=== PATIENT | female | born 1960 | race Caucasian/White ===

== ENCOUNTER 2016-04-22 16:52 | Emergency (ER) | payer OTHER ==
[~2016-04-22] VITALS: Ht 157.5 cm; Wt 66.0 kg
[~2016-04-22 16:52] MED LIST: CALC-358 PO; ESCI1TAB10 PO; LEVO-371 PO; METO50TA16 PO; PEDICHW44 PO; POLY335025 PO; SENN-61 PO
[2016-04-22 16:54] VITALS: TEMP 36.8; Ht 157.5 cm; Wt 66.0 kg
[2016-04-22] MEDS ORDERED: METOCLOPRAMIDE HCL INJ 5 MG/ML 2 ML VIAL IV STA (17:06)
[2016-04-22] MEDS ORDERED: HYDROmorphone INJ 1 MG/ML SYR IV STA ×2 (17:06→20:25)
[2016-04-22] MEDS ORDERED: SODIUM CHLORIDE 0.9% 1000ML 1,000 ML IV STA (17:06)
--- NOTE | 2016-04-22 17:18 | EMERGENCY ROOM VISIT NOTE ---
History Report prepared by Venkat: Umer Oh Under the Supervision of: Dr. Kai Toussaint M.D. First contact with patient: 17:01 Chief Complaint: ABDOMINAL PAIN Stated Complaint: SEVERE ABDOMINAL PAIN, NAUSEA History of Present Illness The patient is a 55 year old female who presents to the Emergency Room with complaints of diffuse and worsening abdominal pain that began shortly prior to arrival. The patient states that she first noticed her pain when she was riding in the car today. She is also complaining of nausea and increased belching. She has not eaten anything today, but did have a normal bowel movement prior to arrival. 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 A total of 10 systems reviewed and were otherwise negative. Past Medical & Surgical Medical Problems: (1) Afib (2) Chest pain (3) Depression (4) DM2 (diabetes mellitus, type 2) (5) HTN (hypertension) (6) Hypercholesterolemia (7) ELOISE on CPAP (8) SBO (small bowel obstruction) (9) Statin intolerance Surgical Problems: (1) H/O esophagogastroduodenoscopy (2) H/O gastric bypass (3) H/O tubal ligation (4) Previous section (5) S/P colonoscopy (6) S/P hernia repair Family History Cancer FH: hepatitis FATHER FH: hyperlipidemia BROTHER FH: myocardial infarction FATHER, Onset:38 FHx: heart disease FATHER GRANDFATHER GRANDMOTHER Gallbladder disease Heart disease Hypertension Kidney disease Social History Smoking Status: Never Smoker Alcohol Use: none Drug Use: none Marital Status: Housing Status: lives with family Occupation Status: employed Current/Historical Medications Scheduled Calcium Citrate-Vitamin D (Calcium Citrate+ D), 400 MG PO BID Escitalopram Oxalate (Lexapro), 20 MG PO DAILY Levocetirizine Dihydrochloride (Xyzal), 5 MG PO QPM Metoprolol Tartrate (Lopressor) (Lopressor), 25 MG PO BID Pediatric Multiple Vitamins W/ (Flintstones Plus Iron), 1 TAB PO BID Scheduled PRN Polyethylene Glycol 3350 (Miralax), 17 GM PO DAILY PRN for Constipation Senna (Senokot), 8.6 MG PO DAILY PRN for Constipation Allergies Coded Allergies: Atorvastatin (Verified Allergy, Mild, 01/09/16) Dust (Verified Allergy, Unknown, SHORTNESS OF BREATH, 01/09/16) POLLEN (Verified Allergy, Unknown, SHORTNESS OF BREATH, 01/09/16) Pravastatin (Verified Allergy, Unknown, FEVER, 01/09/16) Physical Exam Vital Signs Date Time Temp Pulse Resp B/P Pulse Ox O2 Delivery O2 Flow Rate FiO2 04/22/16 22:23 74 14 125/81 99 Room Air 04/22/16 22:00 119/68 04/22/16 21:31 115/63 04/22/16 21:12 73 22 92 04/22/16 21:07 78 15 95 04/22/16 21:00 151/87 04/22/16 20:07 75 24 98 04/22/16 20:01 120/65 04/22/16 19:37 69 17 98 04/22/16 19:36 66 15 133/71 99 Room Air 04/22/16 18:44 64 20 129/71 100 Room Air 04/22/16 17:25 73 22 136/76 98 Room Air 04/22/16 16:54 36.8 72 18 125/81 100 Room Air Physical Exam GENERAL: Patient is a healthy-appearing well-nourished HEAD: Normocephalic atraumatic EYES: Ocular movements intact pupils equal and react to light OROPHARYNX mucous membranes are moist no exudates present no erythema or edema present NECK: Supple no nuchal rigidity CHEST: Good equal expansion LUNGS: Clear and equal to auscultation CARDIAC: Normal S1 and S2 ABDOMEN: Diffuse tenderness across abdomen no guarding BACK: No CVA tenderness EXTREMITIES: No pain upon palpation normal muscle strength in all groups no clubbing cyanosis or edema NEURO: Patient is following commands is answering questions appropriately. Alert and oriented x3 Cranial Nerves 2-12 grossly intact Medical Decision & Procedures ER Provider Diagnostic Interpretation: CT SCAN OF THE ABDOMEN AND PELVIS WITH IV CONTRAST CLINICAL HISTORY: Generalized abdominal pain. COMPARISON STUDY: Abdominal CT dated 01/01/2016. TECHNIQUE: Following the IV administration of 115 cc of Optiray 320, CT scan of the abdomen and pelvis is performed from the lung bases to the proximal femora. Images are reviewed in the axial, sagittal, and coronal planes. IV contrast was administered without complication. Automated dose control exposure was utilized. CT DOSE: 432.82 mGy.cm FINDINGS: Lung bases: The heart is normal in size and without pericardial effusion. There is elevation of the right hemidiaphragm which is new from previous. There is a small right pleural effusion with right basilar airspace opacities. A 10 mm nodule at the left lung base on image #93 Liver: The contrast-enhanced liver is enlarged and the surface contour is smooth. There is no intrahepatic biliary ductal dilatation. The hepatic veins and portal veins are patent. The liver is infiltrated by too numerous to count cysts. The largest measures over 7 cm in length. Large right-sided cysts seen previously and are identified suggesting interval cyst drainage or resection. Gallbladder: Not well visualized. Spleen: Normal in size and attenuation. Pancreas: Unremarkable. Adrenal glands: Unremarkable. Kidneys: The contrast enhanced kidneys demonstrate cortical atrophy and are without hydronephrosis. The kidneys enhance symmetrically. The kidneys are infiltrated by too numerous to count small cysts measuring up to 1.5 cm. Additional subcentimeter cortical hypodensities also likely represent cysts but are too small for definitive characterization. Abdominal vasculature: The abdominal aorta is normal in course and caliber noting mild atherosclerotic calcification. Stomach and bowel: There is a small hiatal hernia. There are postoperative changes consistent with a Patti-en-Y gastric bypass surgery. The distal small bowel loops are distended and fecalized, measuring up to 4 cm in diameter. There is distention of the excluded stomach and the pancreaticobiliary limb. This is distended to the distal anastomosis. There is also distention of the distal small bowel loops in the right lower quadrant. These measure up to 3.7 cm in diameter. A transition point is identified in the right upper quadrant posterior to the liver on axial image #86. A second transition point is suggested on image #107. Additionally, there is tethering the mesenteric vessels in this region, and the appearance is highly concerning for a closed loop type obstruction, possible secondary to an internal hernia. Interloop fluid is noted. The distal small bowel loops are decompressed. No focally thick walled bowel loops are identified. There is no pneumatosis intestinalis or portal venous gas. There is colonic fecal retention. There is mild sigmoid diverticulosis without CT evidence of acute diverticulitis. The appendix is well-visualized and normal. Peritoneum: There is no intraperitoneal free air or abdominal ascites. A midline surgical scar is noted. Lymphadenopathy: None. Pelvic viscera: The bladder, uterus, and adnexa are normal as visualized. Skeletal structures: The skeletal structures are osteopenic. No lytic or blastic lesions are seen. IMPRESSION: 1. Again seen are postoperative changes consistent with a Patti-en-Y gastric bypass surgery. 2. Large right hepatic cysts identified on 01/09/2016 are no longer seen an the appearance suggests interval right hepatic lobe resection or possibly cyst drainage. Additionally, the gallbladder is not well visualized. Correlate with the surgical history for evidence of interval cholecystectomy. 3. Findings are consistent with a high-grade small bowel obstruction. There are 2 transition points identified involving small bowel loops posterior to the right lobe of the liver and just below the diaphragm at the site of presumed surgery. An internal hernia with a closed loop type obstruction is suspected. Trace interloop fluid is noted. Surgical consultation is advised. 4. No intraperitoneal free air or abdominal ascites is seen. There is no pneumatosis intestinalis or portal venous gas. No focally thick walled bowel loops are identified. 5. There is also distention of the excluded stomach and the pancreaticobiliary limb. These are distended to the level of the distal anastomosis, and this is likely secondary to the above-mentioned obstruction which is located below the distal anastomosis. 6. There is a small right pleural effusion with right lower lobe airspace opacities. This could represent atelectasis and/or an infectious/inflammatory pneumonitis. Clinical correlation will be required. 7. Numerous hepatic and renal cysts are again noted. 8. There is a new 10 mm pulmonary nodule at the left lung base. This was not seen on 01/09/2016 and may be on an inflammatory basis. Attention at follow-up is recommended. 9. Additional findings as above. Electronically signed by: Eduard Tucker M.D. 04/22/2016 8:15 PM Dictated Date/Time: 04/22/2016 7:55 PM SINGLE VIEW CHEST CLINICAL HISTORY: Small bowel obstruction. Enteric tube placement. FINDINGS: An AP, portable, upright chest radiograph is compared to study dated 01/10/2016. Correlation is made with abdominal CT dated 04/22/2016. The examination is degraded by portable technique and patient rotation. The cardiomediastinal silhouette is unremarkable. There is elevation of the right hemidiaphragm with right basilar airspace opacities. A small right pleural effusion is identified. The left lung appears clear. No pneumothorax is seen. The bony thorax is grossly intact. An enteric tube projects below the diaphragm. The tip is not visualized. Distended small bowel loops are present below the right hemidiaphragm. IMPRESSION: 1. An enteric tube has been placed. The tip projects below the diaphragm. 2. There is elevation of the right hemidiaphragm with right basilar airspace opacities and a small right pleural effusion. 3. Distended gas-filled loops of small bowel are seen below the right hemidiaphragm consistent with the patient's known small bowel obstruction. Electronically signed by: Eduard Tucker M.D. 04/22/2016 8:50 PM Dictated Date/Time: 04/22/2016 8:48 PM Laboratory Results 04/22/16 17:15 Red Blood Count 4.45, Mean Corpuscular Volume 91.9, Mean Corpuscular Hemoglobin 30.3, Mean Corpuscular Hemoglobin Concent 33.0, Mean Platelet Volume 11.2, Neutrophils (%) (Auto) 69.7, Lymphocytes (%) (Auto) 23.3, Monocytes (%) (Auto) 5.2, Eosinophils (%) (Auto) 1.4, Basophils (%) (Auto) 0.1, Neutrophils # (Auto) 4.95, Lymphocytes # (Auto) 1.66, Monocytes # (Auto) 0.37, Eosinophils # (Auto) 0.10, Basophils # (Auto) 0.01 04/22/16 17:15 Test 04/22/16 17:15 04/22/16 17:30 White Blood Count 7.11 K/uL (4.8-10.8) Red Blood Count 4.45 M/uL (4.2-5.4) Hemoglobin 13.5 g/dL (12.0-16.0) Hematocrit 40.9 % (37-47) Mean Corpuscular Volume 91.9 fL (80-100) Mean Corpuscular Hemoglobin 30.3 pg (25-34) Mean Corpuscular Hemoglobin Concent 33.0 g/dl (32-36) Platelet Count 259 K/uL (130-400) Mean Platelet Volume 11.2 fL (7.4-10.4) Neutrophils (%) (Auto) 69.7 % Lymphocytes (%) (Auto) 23.3 % Monocytes (%) (Auto) 5.2 % Eosinophils (%) (Auto) 1.4 % Basophils (%) (Auto) 0.1 % Neutrophils # (Auto) 4.95 K/uL (1.4-6.5) Lymphocytes # (Auto) 1.66 K/uL (1.2-3.4) Monocytes # (Auto) 0.37 K/uL (0.11-0.59) Eosinophils # (Auto) 0.10 K/uL (0-0.5) Basophils # (Auto) 0.01 K/uL (0-0.2) RDW Standard Deviation 45.8 fL (36.4-46.3) RDW Coefficient of Variation 13.6 % (11.5-14.5) Immature Granulocyte % (Auto) 0.3 % Immature Granulocyte # (Auto) 0.02 K/uL (0.00-0.02) Urine Color YELLOW Urine Appearance CLOUDY (CLEAR) Urine pH 5.0 (4.5-7.5) Urine Specific [place] 1.019 (1.000-1.030) Urine Protein NEG (NEG) Urine Glucose (UA) NEG (NEG) Urine Ketones NEG (NEG) Urine Occult Blood NEG (NEG) Urine Nitrite NEG (NEG) Urine Bilirubin NEG (NEG) Urine Urobilinogen NEG (NEG) Urine Leukocyte Esterase NEG (NEG) Urine WBC (Auto) 1-5 /hpf (0-5) Urine RBC (Auto) 0-4 /hpf (0-4) Urine Hyaline Casts (Auto) 1-5 /lpf (0-5) Urine Epithelial Cells (Auto) >30 /lpf (0-5) Urine Bacteria (Auto) NEG (NEG) Anion Gap 13.0 mmol/L (3-11) Est Creatinine Clear Calc Drug Dose 75.3 ml/min Estimated GFR () 102.2 Estimated GFR (Non- 88.2 BUN/Creatinine Ratio 14.9 (10-20) Calcium Level 9.7 mg/dl (8.5-10.1) Total Bilirubin 0.5 mg/dl (0.2-1) Direct Bilirubin 0.1 mg/dl (0-0.2) Aspartate Amino Transf (AST/SGOT) 41 U/L (15-37) Alanine Aminotransferase (ALT/SGPT) 67 U/L (12-78) Alkaline Phosphatase 140 U/L (45-117) Total Protein 8.0 gm/dl (6.4-8.2) Albumin 4.3 gm/dl (3.4-5.0) Lipase 387 U/L (73-393) Prothrombin Time 11.1 SECONDS (9.0-12.0) Prothromb Time International Ratio 1.0 (0.9-1.1) Labs reviewed by ED physician. Medications Administered Medications (Trade) Dose Ordered Sig/Carin Route Start Time Stop Time Status Last Admin Dose Admin Sodium Chloride (Nss 1000ml) 1,000 ml @ 999 mls/hr Q1H1M STAT IV 04/22/16 17:06 04/22/16 18:06 DC 04/22/16 17:21 999 MLS/HR Hydromorphone HCl (Dilaudid Inj) 1 mg NOW STAT IV 04/22/16 17:06 04/22/16 17:07 DC 04/22/16 17:22 1 MG Metoclopramide HCl (Reglan Inj) 10 mg NOW STAT IV 04/22/16 17:06 04/22/16 17:07 DC 04/22/16 17:21 10 MG Ondansetron HCl (Zofran Inj) 4 mg NOW STAT IV 04/22/16 18:45 04/22/16 18:46 DC 04/22/16 18:53 4 MG Hydromorphone HCl 1 mg 1 mg NOW STAT IV 04/22/16 20:25 04/22/16 20:27 DC 04/22/16 21:00 1 MG Promethazine HCl/ Sodium Chloride (Phenergan Inj/ Nss 50ml) 51 ml @ 204 mls/hr NOW STAT IV 04/22/16 20:25 04/22/16 20:39 DC 04/22/16 20:59 204 MLS/HR Hydromorphone HCl (Dilaudid Inj) 0.5 mg NOW PRN IV 04/22/16 21:00 04/22/16 23:40 DC 04/22/16 22:57 0.5 MG ED Course 1702: Past medical records reviewed. The patient was evaluated in room C11. A complete history and physical examination was performed. 1706: Ordered Reglan 10 mg IV, Dilaudid 1 mg IV, Sodium Chloride 1000 mL @ 999 mL/hr IV. 1735: Upon reexamination the patient is resting comfortably. I discussed results and treatment plan with the patient. She verbalizes agreement and understanding. The patient is ready for discharge. Medical Decision Differential diagnosis: Etiologies such as appendicitis, diverticulitis, PUD, biliary pathology, UTI, pancreatitis, obstruction, mesenteric ischemia, aortic pathology, infections, inflammatory bowel disease, renal colic, as well as others were entertained. This is a 55-year-old female that presents emergency Department 24 hours of abdominal pain and bloating. The patient has a history of gastric bypass for this reason I felt a CAT scan was warranted. The CAT scan is concerning for high-grade small bowel obstruction. For this reason an NG tube was placed. An IV was established, the patient given normal saline bolus, Dilaudid, Reglan. 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 I did discuss the case with the surgeon on-call here at [facility] who asked that the patient be transferred. Patient was in agreement with the treatment plan. Impression Primary Impression: Acute gastroenteritis Critical Care I have personally spent greater than 90 minutes of critical care time in the direct management of this patient. This includes bedside care, interpretation of diagnostic studies, and testing, discussion with consultants, patient, and family members, and other required patient management activities. This 90 minutes is in excess of all separately billable procedures. Scribe Attestation The scribe's documentation has been prepared under my direction and personally reviewed by me in its entirety. I confirm that the note above accurately reflects all work, treatment, procedures, and medical decision making performed by me. Departure Information Dispostion Home / Self-Care Referrals Marilynn Taylor D.O. (PCP) Patient Instructions My [facility]
[2016-04-22 17:25] LABS: URINE APPEARANCE CLOUDY (CLEAR); URINE BILIRUBIN NEG (NEG); URINE COLOR YELLOW; URINE EPITHELIAL CELL AUTO >30 /lpf (0-5); URINE NITRITE NEG (NEG); URINE SPECIFIC GRAVITY 1.019 (1.000-1.030); UROBILINOGEN NEG (NEG)
[2016-04-22 17:26] LABS: MANUAL MICROSCOPIC REQUIRED? NO; REVIEW REQ? NO
[2016-04-22 17:27] LABS: BASO % 0.1 %; BASO ABS # 0.01 K/uL (0-0.2); COMPLETE YES; EOS % 1.4 %; HEMATOCRIT 40.9 % (37-47); IG% 0.3 %; LYMPH % 23.3 %; LYMPH ABS # 1.66 K/uL (1.2-3.4); MEAN CELL VOLUME 91.9 fL (80-100); MEAN CORPUSCULAR HEMOGLOBIN 30.3 pg (25-34); MEAN PLATELET VOLUME 11.2 fL (7.4-10.4); MONO % 5.2 %; NEUT % 69.7 %; PLATELET COUNT 259 K/uL (130-400); RED BLOOD COUNT 4.45 M/uL (4.2-5.4); WHITE BLOOD COUNT 7.11 K/uL (4.8-10.8)
[2016-04-22 17:45] LABS: BUN/CREATININE RATIO 14.9 (10-20); CALCIUM 9.7 mg/dl (8.5-10.1); CREATININE 0.77 mg/dl (0.60-1.20); POTASSIUM 3.7 mmol/L (3.5-5.1)
[2016-04-22] MEDS ORDERED: ONDANSETRON INJ 2 MG/ML 2 ML VIAL IV STA (18:45)
[2016-04-22] MEDS ORDERED: OPTIRAY 320 IV PRN (19:30)
--- NOTE | 2016-04-22 20:17 | DIAGNOSTIC IMAGING REPORT ---
CT SCAN OF THE ABDOMEN AND PELVIS WITH IV CONTRAST CLINICAL HISTORY: Generalized abdominal pain. COMPARISON STUDY: Abdominal CT dated 01/01/2016. TECHNIQUE: Following the IV administration of 115 cc of Optiray 320, CT scan of the abdomen and pelvis is performed from the lung bases to the proximal femora. Images are reviewed in the axial, sagittal, and coronal planes. IV contrast was administered without complication. Automated dose control exposure was utilized. CT DOSE: 432.82 mGy.cm FINDINGS: Lung bases: The heart is normal in size and without pericardial effusion. There is elevation of the right hemidiaphragm which is new from previous. There is a small right pleural effusion with right basilar airspace opacities. A 10 mm nodule at the left lung base on image #93 Liver: The contrast-enhanced liver is enlarged and the surface contour is smooth. There is no intrahepatic biliary ductal dilatation. The hepatic veins and portal veins are patent. The liver is infiltrated by too numerous to count cysts. The largest measures over 7 cm in length. Large right-sided cysts seen previously and are identified suggesting interval cyst drainage or resection. Gallbladder: Not well visualized. Spleen: Normal in size and attenuation. Pancreas: Unremarkable. Adrenal glands: Unremarkable. Kidneys: The contrast enhanced kidneys demonstrate cortical atrophy and are without hydronephrosis. The kidneys enhance symmetrically. The kidneys are infiltrated by too numerous to count small cysts measuring up to 1.5 cm. Additional subcentimeter cortical hypodensities also likely represent cysts but are too small for definitive characterization. Abdominal vasculature: The abdominal aorta is normal in course and caliber noting mild atherosclerotic calcification. Stomach and bowel: There is a small hiatal hernia. There are postoperative changes consistent with a Patti-en-Y gastric bypass surgery. The distal small bowel loops are distended and fecalized, measuring up to 4 cm in diameter. There is distention of the excluded stomach and the pancreaticobiliary limb. This is distended to the distal anastomosis. There is also distention of the distal small bowel loops in the right lower quadrant. These measure up to 3.7 cm in diameter. A transition point is identified in the right upper quadrant posterior to the liver on axial image #86. A second transition point is suggested on image #107. Additionally, there is tethering the mesenteric vessels in this region, and the appearance is highly concerning for a closed loop type obstruction, possible secondary to an internal hernia. Interloop fluid is noted. The distal small bowel loops are decompressed. No focally thick walled bowel loops are identified. There is no pneumatosis intestinalis or portal venous gas. There is colonic fecal retention. There is mild sigmoid diverticulosis without CT evidence of acute diverticulitis. The appendix is well-visualized and normal. Peritoneum: There is no intraperitoneal free air or abdominal ascites. A midline surgical scar is noted. Lymphadenopathy: None. Pelvic viscera: The bladder, uterus, and adnexa are normal as visualized. Skeletal structures: The skeletal structures are osteopenic. No lytic or blastic lesions are seen. IMPRESSION: 1. Again seen are postoperative changes consistent with a Patti-en-Y gastric bypass surgery. 2. Large right hepatic cysts identified on 01/09/2016 are no longer seen an the appearance suggests interval right hepatic lobe resection or possibly cyst drainage. Additionally, the gallbladder is not well visualized. Correlate with the surgical history for evidence of interval cholecystectomy. 3. Findings are consistent with a high-grade small bowel obstruction. There are 2 transition points identified involving small bowel loops posterior to the right lobe of the liver and just below the diaphragm at the site of presumed surgery. An internal hernia with a closed loop type obstruction is suspected. Trace interloop fluid is noted. Surgical consultation is advised. 4. No intraperitoneal free air or abdominal ascites is seen. There is no pneumatosis intestinalis or portal venous gas. No focally thick walled bowel loops are identified. 5. There is also distention of the excluded stomach and the pancreaticobiliary limb. These are distended to the level of the distal anastomosis, and this is likely secondary to the above-mentioned obstruction which is located below the distal anastomosis. 6. There is a small right pleural effusion with right lower lobe airspace opacities. This could represent atelectasis and/or an infectious/inflammatory pneumonitis. Clinical correlation will be required. 7. Numerous hepatic and renal cysts are again noted. 8. There is a new 10 mm pulmonary nodule at the left lung base. This was not seen on 01/09/2016 and may be on an inflammatory basis. Attention at follow-up is recommended. 9. Additional findings as above. Electronically signed by: Eduard Tucker M.D. 04/22/2016 8:15 PM Dictated Date/Time: 04/22/2016 7:55 PM
[2016-04-22] MEDS ORDERED: PROMETHAZINE HCL INJ 25 MG in SODIUM CHLORIDE 0.9% 50ML 50 ML IV STA (20:25)
[2016-04-22 20:38] LABS: PROTHROMBIN TIME (PATIENT) 11.1 SECONDS (9.0-12.0)
--- NOTE | 2016-04-22 20:51 | DIAGNOSTIC IMAGING REPORT ---
SINGLE VIEW CHEST CLINICAL HISTORY: Small bowel obstruction. Enteric tube placement. FINDINGS: An AP, portable, upright chest radiograph is compared to study dated 01/10/2016. Correlation is made with abdominal CT dated 04/22/2016. The examination is degraded by portable technique and patient rotation. The cardiomediastinal silhouette is unremarkable. There is elevation of the right hemidiaphragm with right basilar airspace opacities. A small right pleural effusion is identified. The left lung appears clear. No pneumothorax is seen. The bony thorax is grossly intact. An enteric tube projects below the diaphragm. The tip is not visualized. Distended small bowel loops are present below the right hemidiaphragm. IMPRESSION: 1. An enteric tube has been placed. The tip projects below the diaphragm. 2. There is elevation of the right hemidiaphragm with right basilar airspace opacities and a small right pleural effusion. 3. Distended gas-filled loops of small bowel are seen below the right hemidiaphragm consistent with the patient's known small bowel obstruction. Electronically signed by: Eduard Tucker M.D. 04/22/2016 8:50 PM Dictated Date/Time: 04/22/2016 8:48 PM
[2016-04-22] MEDS ORDERED: HYDROmorphone INJ 0.5 MG/0.5 ML SYR IV PRN (21:00)
[2016-04-22 22:23] VITALS: BP 125/81; PULSE 74; O2SAT 99
== END 2016-04-22 22:30 | disposition home or self-care (01) ==
LOC: C.EDB 16:53 → C.EDC 22:30
DX: K52.9 Noninfective gastroenteritis and colitis, unspecified (principal); I10 Essential (primary) hypertension; G47.33 Obstructive sleep apnea (adult) (pediatric); F32.9 Major depressive disorder, single episode, unspecified; Z98.84 Bariatric surgery status; Z83.49 Family history of other endocrine, nutritional and metabolic diseases; Z82.49 Family history of ischemic heart disease and other diseases of the circulatory system; Z84.1 Family history of disorders of kidney and ureter

== ENCOUNTER 2016-04-30 13:36 | Emergency (ER) | payer OTHER ==
[2016-04-30 13:46] VITALS: TEMP 37.9; Ht 157.5 cm
[2016-04-30] MEDS ORDERED: SODIUM CHLORIDE 0.9% 1000ML 1,000 ML IV STA (15:08)
[2016-04-30] MEDS ORDERED: HYDROmorphone INJ 1 MG/ML SYR IV STA (15:25)
[2016-04-30] MEDS ORDERED: ONDANSETRON INJ 2 MG/ML 2 ML VIAL IV STA (15:25)
--- NOTE | 2016-04-30 15:25 | EMERGENCY ROOM VISIT NOTE ---
History First contact with patient: 14:56 Chief Complaint: ABDOMINAL PAIN Stated Complaint: SEVERE FLANK PAIN,FEVER Nursing Triage Summary: Triage Note: Pt reports "Mom you tell them." pt mother reports that pt had surgery on hiatal hernia obstruction last Saturday. Pt reports right upper abd pain since yesterday. History of Present Illness The patient is a 55 year old female who presents to the Emergency Room via private vehicle with complaints of "severe flank pain/fever". The patient states that she was here not long ago and was diagnosed with small bowel obstruction, and was transferred to [facility]. At that time she did have abdominal surgery, which included resection of bowel as well as cholecystectomy. She states she was also evaluated by a liver transplant surgeon. A feeding tube was placed, and she is to keep this for 2 months. She states she has not been using this and has been tolerating by mouth fluids and food. She states that she was discharged this past Saturday, and was feeling better, had moved her bowels as well as urinated without difficulty. She states that Saturday she woke up and also felt well however throughout the day she developed right upper quadrant abdominal pain. She states that the pain has worsened, and she feels as though she has gained about 20 pounds since her discharge. She states she feels very bloated as well. She called her family doctor today who notes they do not have any recent appointments, and the patient felt that the appropriate to come here as she also developed a temperature of 101.5F this afternoon. She has been taking oxycodone for the pain of which was prescribed to her at [facility]. Her last movement was yesterday around 2 PM, and was liquidy diarrhea. There is associated dyspnea, she states she feels as though she cannot take a deep breath. She denies any chest pain, nausea, vomiting. Review of Systems A complete 10-point Review of Systems was discussed with the patient, with pertinent positives and negatives listed in the History of Present Illness. All remaining Review of Systems questions can be considered negative unless otherwise specified. Past Medical/Surgical History Medical Problems: (1) Afib (2) Chest pain (3) Depression (4) DM2 (diabetes mellitus, type 2) (5) HTN (hypertension) (6) Hypercholesterolemia (7) ELOISE on CPAP (8) SBO (small bowel obstruction) (9) Statin intolerance Surgical Problems: (1) H/O esophagogastroduodenoscopy (2) H/O gastric bypass (3) H/O tubal ligation (4) Previous section (5) S/P colonoscopy (6) S/P hernia repair Family History Cancer FH: hepatitis FATHER FH: hyperlipidemia BROTHER FH: myocardial infarction FATHER, Onset:38 FHx: heart disease FATHER GRANDFATHER GRANDMOTHER Gallbladder disease Heart disease Hypertension Kidney disease Social History Smoking Status: Never Smoker Alcohol Use: none Drug Use: none Marital Status: Housing Status: lives with family Occupation Status: employed Current/Historical Medications Scheduled Calcium Citrate-Vitamin D (Calcium Citrate+ D), 400 MG PO BID Escitalopram Oxalate (Lexapro), 20 MG PO DAILY Levocetirizine Dihydrochloride (Xyzal), 5 MG PO QPM Metoprolol Tartrate (Lopressor) (Lopressor), 25 MG PO BID Pediatric Multiple Vitamins W/ (Flintstones Plus Iron), 1 TAB PO BID Scheduled PRN Acetaminophen (Tylenol), 1,000 MG PO Q6 PRN for Pain Polyethylene Glycol 3350 (Miralax), 17 GM PO DAILY PRN for Constipation Senna (Senokot), 8.6 MG PO DAILY PRN for Constipation Allergies Coded Allergies: Atorvastatin (Verified Allergy, Mild, 01/09/16) Dust (Verified Allergy, Unknown, SHORTNESS OF BREATH, 01/09/16) POLLEN (Verified Allergy, Unknown, SHORTNESS OF BREATH, 01/09/16) Pravastatin (Verified Allergy, Unknown, FEVER, 01/09/16) Physical Exam Vital Signs Date Time Temp Pulse Resp B/P Pulse Ox O2 Delivery O2 Flow Rate FiO2 04/30/16 21:01 81 16 108/63 96 04/30/16 20:00 122 04/30/16 18:24 127 24 113/70 95 Room Air 04/30/16 17:18 120 18 147/83 85 Room Air 04/30/16 17:18 95 Nasal Cannula 3.0 04/30/16 15:38 117 04/30/16 15:36 114 20 127/76 95 Room Air 04/30/16 15:23 96 Room Air 04/30/16 15:22 Room Air 04/30/16 13:46 37.9 118 20 127/83 93 Room Air Physical Exam VITAL SIGNS - Vital signs and nursing notes were reviewed. The patient is febrile at 37.9C, she is normotensive at 127/83, she is tachycardic at a rate of 118 bpm, respiratory rate of 20 and is saturating on room air at 93%. GENERAL -55-year-old female appearing her stated age who is in no acute distress. Communicates well with provider and answers questions appropriately. SKIN - Without rashes. No petechial rashes. There is evidence of healing contusion on the left ventral forearm. HEAD - NC/AT. EYES - Sclera anicteric. Palpebral conjunctiva pink and moist with no injection noted. EARS - No deformities of external structures noted on gross examination bilaterally. NOSE - Midline and without cyanosis. No epistaxis or purulent drainage noted. MOUTH/OROPHARYNX - Without perioral cyanosis. NECK - Neck with FROM. Supple to palpation. Right anterior cervical lymphadenopathy noted. No nuchal rigidity. LUNGS - Chest wall symmetric without accessory muscle use, intercostals retractions, or central cyanosis. Normal vesicular breath sounds CTA B/L. No wheezes, rales, or rhonchi appreciated. CARDIAC - RRR with S1/S2. No murmur, rubs, or gallops appreciated. ABDOMEN - Abdominal contour without pulsations or visible masses. There is a stapled, midline abdominal incision that is healing well with mild erythema at the skin edges. There is no discharge or evidence of fullness cellulitis at this time. BS normoactive all four quadrants. There is a feeding tube in the left upper quadrant. There is exquisite tenderness to the right upper quadrant. No palpable masses, hepatosplenomegaly, or ascites noted. EXTREMITIES - No clubbing or peripheral cyanosis. No pretibial edema present. + 5/5 strength noted in UE/LE bilaterally. NEUROLOGIC - Cranial nerves II through XII grossly intact. Sensory intact to light touch throughout. PSYCH -Pt is very pleasant and interacts well with examiner. Medical Decision & Procedures ER Provider Diagnostic Interpretation: SINGLE VIEW CHEST CLINICAL HISTORY: Dyspnea. Fever. Recent surgery. FINDINGS: An AP, portable, upright chest radiograph is compared to study dated 04/22/2016. The examination is degraded by portable technique and patient rotation. The enteric tube has been removed from previous. The cardiomediastinal silhouette is unremarkable. Chronic elevation of the right hemidiaphragm is similar to previous. There are layering pleural effusions with bibasilar consolidation that have increased in size from 04/22/2016. The upper lungs appear clear. No pneumothorax is seen. The bony thorax is grossly intact.. IMPRESSION: Layering pleural effusions with bibasilar consolidation, right larger than left. This likely represents atelectasis. Clinical correlation will be required. Pleural effusions have significantly increased in size from 04/22/2016. Electronically signed by: Eduard Tucker M.D. 04/30/2016 3:42 PM Dictated Date/Time: 04/30/2016 3:[address] ANGIOGRAM OF THE CHEST CLINICAL HISTORY: Fever, chest and flank pain. Recent bowel resection. COMPARISON STUDY: Chest x-ray dated 04/30/2016 TECHNIQUE: Following the IV administration of 117 mL of Optiray-320, CT angiogram of the thorax was performed from the thoracic inlet to the lung bases utilizing the pulmonary embolus protocol. Images are reviewed in the axial, sagittal, and coronal planes. IV contrast was administered without complication. MIP imaging was performed. CT DOSE: 1046.08 mGy.cm FINDINGS: No pathologically enlarged axillary mediastinal or hilar lymph nodes were visualized. There was no evidence of thoracic aortic dilatation. There were no pulmonary artery filling defects to indicate acute pulmonary embolism. There is a moderate to large right pleural effusion which is likely in part loculated. There is a small left pleural effusion. There are by basilar compressive atelectatic changes. There is a small pericardial effusion. There are in numerable hepatic cysts. Gas in the right upper quadrant, likely represents colonic interposition given the right or CT findings of 04/22/2016 IMPRESSION: 1. No CT evidence of acute pulmonary embolism 2. Moderate to large right pleural effusion and small left pleural effusion 3. Bilateral lower lobe compressive atelectatic changes 4. Innumerable hepatic cysts Electronically signed by: Александр Padilla M.D. 04/30/2016 4:51 PM Dictated Date/Time: 04/30/2016 4:47 PM ABDOMEN AND PELVIS CT WITH IV CONTRAST CT DOSE: HISTORY: Fever Febrile, RUQ abdominal pain, recent surgery TECHNIQUE: Multiaxial CT images of the abdomen and pelvis were performed following the use of intravenous contrast. COMPARISON STUDY: 04/22/2016. Findings. Progression of a right pleural effusion. Right lower lobe as well as left lower lobe atelectatic change. Potential mild infiltrative process left base with a small left effusion. Persistent hepatomegaly. Multiple hepatic cysts. Several cysts in the peripheral right hepatic lobe now containing a component of air. Infiltrative changes peripheral to the liver in the right upper quadrant region now contiguous with the right hepatic lobe cyst. Is now potentially represent multifocal abscesses at the periphery of the right hepatic lobe. Gastrostomy tube has been placed. Interval development of a 7 x 5 cm fluid pocket medially medial to the pancreatic head. Multiple renal cysts unchanged in the prior study. No evidence for hydronephrosis. Nonspecific infiltrative change of the paracolic gutter fat regions bilaterally. Interval placement of an anastomotic line in the right flank. Bowel is been decompressed possibility of several additional collections in the right flank and paracolic gutter region. Interval development of body wall anasarca. IMPRESSION: 1. Difficult scan to interpret.. 2. Interval development of air pockets within several of the patient's hepatic cysts, as well as infiltrative/collection-type change lateral to the liver in the right upper paracolic gutter region. 3. Possibility of multifocal abscesses or collections is considered. 4. Placement of gastrostomy tube with interval surgical decompression of the patient's bowel obstructive change. 5. No current evidence of bowel obstructive change. 6. Interval development of body wall anasarca, as well as a significant right effusion and bilateral basilar atelectatic change. Electronically signed by: Damien Cornejo M.D. 04/30/2016 5:07 PM Dictated Date/Time: 04/30/2016 4:47 PM Laboratory Results 04/30/16 15:15 Red Blood Count 3.33, Mean Corpuscular Volume 89.2, Mean Corpuscular Hemoglobin 30.6, Mean Corpuscular Hemoglobin Concent 34.3, Mean Platelet Volume 10.6, Neutrophils (%) (Auto) 80.2, Lymphocytes (%) (Auto) 6.2, Monocytes (%) (Auto) 6.5, Eosinophils (%) (Auto) 1.0, Basophils (%) (Auto) 0.6, Neutrophils # (Auto) 11.29, Lymphocytes # (Auto) 0.87, Monocytes # (Auto) 0.91, Eosinophils # (Auto) 0.14, Basophils # (Auto) 0.09 04/30/16 15:15 Test 04/30/16 15:15 04/30/16 15:48 04/30/16 16:02 04/30/16 17:20 White Blood Count 14.07 K/uL (4.8-10.8) Red Blood Count 3.33 M/uL (4.2-5.4) Hemoglobin 10.2 g/dL (12.0-16.0) Hematocrit 29.7 % (37-47) Mean Corpuscular Volume 89.2 fL (80-100) Mean Corpuscular Hemoglobin 30.6 pg (25-34) Mean Corpuscular Hemoglobin Concent 34.3 g/dl (32-36) Platelet Count 362 K/uL (130-400) Mean Platelet Volume 10.6 fL (7.4-10.4) Neutrophils (%) (Auto) 80.2 % Lymphocytes (%) (Auto) 6.2 % Monocytes (%) (Auto) 6.5 % Eosinophils (%) (Auto) 1.0 % Basophils (%) (Auto) 0.6 % Neutrophils # (Auto) 11.29 K/uL (1.4-6.5) Lymphocytes # (Auto) 0.87 K/uL (1.2-3.4) Monocytes # (Auto) 0.91 K/uL (0.11-0.59) Eosinophils # (Auto) 0.14 K/uL (0-0.5) Basophils # (Auto) 0.09 K/uL (0-0.2) RDW Standard Deviation 47.0 fL (36.4-46.3) RDW Coefficient of Variation 14.4 % (11.5-14.5) Immature Granulocyte % (Auto) 5.5 % Immature Granulocyte # (Auto) 0.77 K/uL (0.00-0.02) Nucleated RBC Absolute Count (auto) 0.04 K/uL (0-0) Nucleated Red Blood Cells % 0.3 % Toxic Granulation 2+ Anion Gap 11.0 mmol/L (3-11) Estimated GFR () 132.6 Estimated GFR (Non- 114.4 BUN/Creatinine Ratio 17.1 (10-20) Calcium Level 8.3 mg/dl (8.5-10.1) Magnesium Level 2.0 mg/dl (1.8-2.4) Total Bilirubin 0.8 mg/dl (0.2-1) Aspartate Amino Transf (AST/SGOT) 38 U/L (15-37) Alanine Aminotransferase (ALT/SGPT) 54 U/L (12-78) Alkaline Phosphatase 141 U/L (45-117) Total Protein 6.4 gm/dl (6.4-8.2) Albumin 2.2 gm/dl (3.4-5.0) Globulin 4.2 gm/dl (2.5-4.0) Albumin/Globulin Ratio 0.5 (0.9-2) Amylase Level 205 U/L (25-115) Lipase 623 U/L (73-393) Bedside Troponin I 0.000 ng/ml (0-0.045) GI-Xws-S-Type Natriuretic Peptide 245 pg/ml (0-900) Bedside Lactic Acid Venous 0.90 mmol/L (0.90-1.70) Urine Color DK YELLOW Urine Appearance CLEAR (CLEAR) Urine pH 6.0 (4.5-7.5) Urine Specific [place] > 1.045 (1.000-1.030) Urine Protein 1+ (NEG) Urine Glucose (UA) NEG (NEG) Urine Ketones 2+ (NEG) Urine Occult Blood NEG (NEG) Urine Nitrite NEG (NEG) Urine Bilirubin NEG (NEG) Urine Urobilinogen POS (NEG) Urine Leukocyte Esterase NEG (NEG) Urine WBC (Auto) 1-5 /hpf (0-5) Urine RBC (Auto) 0-4 /hpf (0-4) Urine Hyaline Casts (Auto) 5-10 /lpf (0-5) Urine Epithelial Cells (Auto) >30 /lpf (0-5) Urine Bacteria (Auto) NEG (NEG) Urine Renal Epithelial Cells /lpf (0-5) Medications Administered Medications (Trade) Dose Ordered Sig/Carin Route Start Time Stop Time Status Last Admin Dose Admin Sodium Chloride (Nss 1000ml) 1,000 ml @ 999 mls/hr Q1H1M STAT IV 04/30/16 15:08 04/30/16 16:08 DC 04/30/16 15:35 999 MLS/HR Hydromorphone HCl (Dilaudid Inj) 1 mg NOW STAT IV 04/30/16 15:25 04/30/16 15:27 DC 04/30/16 15:47 1 MG Ondansetron HCl (Zofran Inj) 4 mg NOW STAT IV 04/30/16 15:25 04/30/16 15:27 DC 04/30/16 15:48 4 MG Piperacillin Sod/ Tazobactam Sod (Zosyn Iv) 4.5 gm NOW STAT IV 04/30/16 16:10 04/30/16 16:12 DC 04/30/16 17:10 4.5 GM Levofloxacin (Levaquin / D5W) 750 mg NOW STAT IV 04/30/16 16:10 04/30/16 16:12 DC 04/30/16 17:10 750 MG Hydromorphone HCl (Dilaudid Inj) 0.5 mg NOW STAT IV 04/30/16 17:40 04/30/16 17:41 DC 04/30/16 17:49 0.5 MG Medical Decision Patient was seen and evaluated as above. Previous visits were extensively reviewed. The patient presents status post recent abdominal surgery, tachycardia, dyspnea and subjective as well as objective findings of fever. There is initial concern for PE, atelectasis, pneumonia as well as intra- abdominal infection with potential for sepsis. IV access was initiated, and the above labs were ordered. Chest 1 view was initiated, and compared to previous with worsening of the consolidation as well as atelectasis. There is also concern for effusion and pneumonia. Based upon this finding, as well as elevated white count, fever and recent surgery I did elect to treat for potential sepsis, as well as nosocomial pneumonia. She was given 4.5 g of Zosyn as well as 750 mg of Levaquin IV. She was hydrated with 1 L of normal saline. As the patient was febrile I did want to hydrate her, however did want to use caution because she has worsening pleural effusions. For pain she was given 1 mg of Dilaudid IV, 4 mg of Zofran for any potential nausea. Clinically she does look well, however upon presentation the O2 saturation was 93%, and upon reassessment 1 hour after my initial evaluation, she desatted to 86% on room air. Oxygen was initiated at that point. She did appear to be more comfortable, and was in less pain. I informed her upon the severity of the situation, and the concern for sepsis. Her point of care lactic was 0.9, however blood cultures were ordered 2. CT scans were ordered of the chest, and abdomen one to evaluate for pulmonary emboli based upon the patient's tachycardia, dyspnea and risk factor for this as well as the abdomen and pelvis secondary to her degree of pain. Chest x-ray indicates worsening effusions. The CT of the chest was negative for pulmonary emboli. The scan of the abdomen and pelvis did reveal a potential infiltrate or process with the left base, therefore the Zosyn and Levaquin were continued for potential pneumonia as well as intra-abdominal process. There is also note of now hepatic cysts with air, infiltrative changes on the liver periphery concerning for multifocal abscesses within the right hepatic lobe. There was also an interval development of a 7 5cm fluid collection medial to the pancreatic head. This is concerning for infection. There was also nonspecific infiltrative changes to the paracolic gutter fat regions bilaterally. There was also additional collections in the right flank and paracolic gutter region and body wall anasarca. These were all concerning for severe an infectious/inflammatory processes. The case was extensively discussed with my attending physician, Dr. Angelo. I then discussed the case with [facility], the surgeon instructional interventionist for the one who completed the previous recent surgery. At 5:50 PM I spoke with Dr. Pérez. After a thorough discussion, it was recommended the patient be sent back to [facility] for further evaluation and management. He did request the imaging studies be sent with the patient. I then prepared the patient for transport. She was given orders for morphine and Zofran in route, as well as to keep vein open. I elected to not provide additional fluids at this time given the amount of pleural effusion and fluid overload. For medications: She was given 1 L here wide open, as well as 4.5 g of Zosyn and 750 mg of Levaquin. She was given 1 mg of Dilaudid followed by 0.5 mg of Dilaudid total. She was also given 4 mg of Zofran. At this time I believe the patient is stable for transport, and will benefit from transport to a facility which is able to address her concern at this time. The patient was extensively informed upon lab work and imaging studies. She did have a leukocytosis at 14.7, as well as anemia with hemoglobin of 10.2. Potassium was low at 3.3, creatinine 1.45, calcium low at 8.3 with AST elevated at 38 and alkaline phosphatase 141. Point care troponin was 0. BNP was 245. Total bilirubin was normal at 0.8. Albumin and globulin were both abnormal with albumin at 2.2 and globulin at 4.2. Amylase and lipase were both elevated at 205 and 623 respectively. Patient's urine did reveal 2+ ketones, positive urobilinogen 5-10 hyaline casts and greater than 30 epithelial cells. No evidence of UTI this time. EKG revealed sinus tachycardia, rate of 112 bpm. There was no acute ectopy or ischemic change noted this time. Compared to april 22 ekg: Vent. rate has increased BY 40 BPM Questionable change in initial forces of Anterior leads Nonspecific T wave abnormality, worse in Inferior leads In the evaluation and treatment of this patient the following differential diagnoses were entertained: Abscess, sepsis, pulmonary emboli, pneumonia, pleural effusion, among others. Impression Primary Impression: Postoperative fever Additional Impressions: Pleural effusion Abdominal fluid collection Anasarca Leukocytosis Departure Information Dispostion Transfer Acute Care Facility Condition FAIR Referrals Marilynn Taylor D.O. (PCP) Patient Instructions My [facility] Problem Qualifiers
[2016-04-30 15:36] LABS: HEMATOCRIT 29.7 % (37-47); MEAN CELL VOLUME 89.2 fL (80-100); MEAN CORPUSCULAR HEMOGLOBIN 30.6 pg (25-34); MEAN CORPUSCULAR HGB CONC 34.3 g/dl (32-36); MEAN PLATELET VOLUME 10.6 fL (7.4-10.4); PLATELET COUNT 362 K/uL (130-400); RED BLOOD COUNT 3.33 M/uL (4.2-5.4); WHITE BLOOD COUNT 14.07 K/uL (4.8-10.8)
[2016-04-30] MEDS ORDERED: ACET-1256 PO (15:40)
--- NOTE | 2016-04-30 15:44 | DIAGNOSTIC IMAGING REPORT ---
SINGLE VIEW CHEST CLINICAL HISTORY: Dyspnea. Fever. Recent surgery. FINDINGS: An AP, portable, upright chest radiograph is compared to study dated 04/22/2016. The examination is degraded by portable technique and patient rotation. The enteric tube has been removed from previous. The cardiomediastinal silhouette is unremarkable. Chronic elevation of the right hemidiaphragm is similar to previous. There are layering pleural effusions with bibasilar consolidation that have increased in size from 04/22/2016. The upper lungs appear clear. No pneumothorax is seen. The bony thorax is grossly intact.. IMPRESSION: Layering pleural effusions with bibasilar consolidation, right larger than left. This likely represents atelectasis. Clinical correlation will be required. Pleural effusions have significantly increased in size from 04/22/2016. Electronically signed by: Eduard Tucker M.D. 04/30/2016 3:42 PM Dictated Date/Time: 04/30/2016 3:40 PM
[2016-04-30 15:55] LABS: ALT/SGPT 54 U/L (12-78); BLOOD UREA NITROGEN 8 mg/dl (7-18); BUN/CREATININE RATIO 17.1 (10-20); CALCIUM 8.3 mg/dl (8.5-10.1); CARBON DIOXIDE 28 mmol/L (21-32); CHLORIDE 99 mmol/L (98-107); CREATININE 0.45 mg/dl (0.60-1.20); GLUCOSE 110 mg/dl (70-99); POTASSIUM 3.3 mmol/L (3.5-5.1); SODIUM 138 mmol/L (136-145)
[2016-04-30 15:57] LABS: BASO % 0.6 %; BASO ABS # 0.09 K/uL (0-0.2); COMPLETE YES; IG% 5.5 %; LYMPH % 6.2 %; LYMPH ABS # 0.87 K/uL (1.2-3.4); MONO % 6.5 %; NEUT % 80.2 %; TOXIC GRANULATION 2+
[2016-04-30 15:58] LABS: ALB/GLOB RATIO 0.5 (0.9-2); ALKALINE PHOSPHATASE 141 U/L (45-117); AST/SGOT 38 U/L (15-37)
[2016-04-30] MEDS ORDERED: LEVAQUIN 750MG / 150ML D5W IV STA (16:10)
[2016-04-30] MEDS ORDERED: PIPERACILLIN/TAZOBACTAM 4.5 GM/100ML D5W IV STA (16:10)
--- NOTE | 2016-04-30 16:53 | DIAGNOSTIC IMAGING REPORT ---
CT ANGIOGRAM OF THE CHEST CLINICAL HISTORY: Fever, chest and flank pain. Recent bowel resection. COMPARISON STUDY: Chest x-ray dated 04/30/2016 TECHNIQUE: Following the IV administration of 117 mL of Optiray-320, CT angiogram of the thorax was performed from the thoracic inlet to the lung bases utilizing the pulmonary embolus protocol. Images are reviewed in the axial, sagittal, and coronal planes. IV contrast was administered without complication. MIP imaging was performed. CT DOSE: 1046.08 mGy.cm FINDINGS: No pathologically enlarged axillary mediastinal or hilar lymph nodes were visualized. There was no evidence of thoracic aortic dilatation. There were no pulmonary artery filling defects to indicate acute pulmonary embolism. There is a moderate to large right pleural effusion which is likely in part loculated. There is a small left pleural effusion. There are by basilar compressive atelectatic changes. There is a small pericardial effusion. There are in numerable hepatic cysts. Gas in the right upper quadrant, likely represents colonic interposition given the right or CT findings of 04/22/2016 IMPRESSION: 1. No CT evidence of acute pulmonary embolism 2. Moderate to large right pleural effusion and small left pleural effusion 3. Bilateral lower lobe compressive atelectatic changes 4. Innumerable hepatic cysts Electronically signed by: Александр Padilla M.D. 04/30/2016 4:51 PM Dictated Date/Time: 04/30/2016 4:47 PM
[2016-04-30] MEDS ORDERED: OPTIRAY 320 IV PRN (17:00)
--- NOTE | 2016-04-30 17:09 | DIAGNOSTIC IMAGING REPORT ---
ABDOMEN AND PELVIS CT WITH IV CONTRAST CT DOSE: HISTORY: Fever Febrile, RUQ abdominal pain, recent surgery TECHNIQUE: Multiaxial CT images of the abdomen and pelvis were performed following the use of intravenous contrast. COMPARISON STUDY: 04/22/2016. Findings. Progression of a right pleural effusion. Right lower lobe as well as left lower lobe atelectatic change. Potential mild infiltrative process left base with a small left effusion. Persistent hepatomegaly. Multiple hepatic cysts. Several cysts in the peripheral right hepatic lobe now containing a component of air. Infiltrative changes peripheral to the liver in the right upper quadrant region now contiguous with the right hepatic lobe cyst. Is now potentially represent multifocal abscesses at the periphery of the right hepatic lobe. Gastrostomy tube has been placed. Interval development of a 7 x 5 cm fluid pocket medially medial to the pancreatic head. Multiple renal cysts unchanged in the prior study. No evidence for hydronephrosis. Nonspecific infiltrative change of the paracolic gutter fat regions bilaterally. Interval placement of an anastomotic line in the right flank. Bowel is been decompressed possibility of several additional collections in the right flank and paracolic gutter region. Interval development of body wall anasarca. IMPRESSION: 1. Difficult scan to interpret.. 2. Interval development of air pockets within several of the patient's hepatic cysts, as well as infiltrative/collection-type change lateral to the liver in the right upper paracolic gutter region. 3. Possibility of multifocal abscesses or collections is considered. 4. Placement of gastrostomy tube with interval surgical decompression of the patient's bowel obstructive change. 5. No current evidence of bowel obstructive change. 6. Interval development of body wall anasarca, as well as a significant right effusion and bilateral basilar atelectatic change. Electronically signed by: Damien Cornejo M.D. 04/30/2016 5:07 PM Dictated Date/Time: 04/30/2016 4:47 PM
[2016-04-30 17:18] VITALS: O2SAT 95
[2016-04-30 17:38] LABS: AMYLASE 205 U/L (25-115)
[2016-04-30 17:39] LABS: MANUAL MICROSCOPIC REQUIRED? NO; REVIEW REQ? YES; URINE APPEARANCE CLEAR (CLEAR); URINE BILIRUBIN NEG (NEG); URINE COLOR DK YELLOW; URINE EPITHELIAL CELL AUTO >30 /lpf (0-5); URINE NITRITE NEG (NEG); URINE SPECIFIC GRAVITY > 1.045 (1.000-1.030); UROBILINOGEN POS (NEG); ZZUR CULT IF INDIC CLEAN CATCH NO
[2016-04-30] MEDS ORDERED: HYDROmorphone INJ 0.5 MG/0.5 ML SYR IV STA (17:40)
[2016-04-30 21:01] VITALS: BP 108/63; PULSE 81; O2SAT 96
== END 2016-04-30 21:07 | disposition short-term general hospital (02) ==
LOC: C.EDB 13:40 → C.EDC 21:07
DX: R50.82 Postprocedural fever (principal); J90 Pleural effusion, not elsewhere classified; R18.8 Other ascites; D72.829 Elevated white blood cell count, unspecified; Z98.890 Other specified postprocedural states; Z93.1 Gastrostomy status; I48.91 Unspecified atrial fibrillation; E11.9 Type 2 diabetes mellitus without complications; I10 Essential (primary) hypertension; E78.00 Pure hypercholesterolemia, unspecified; G47.33 Obstructive sleep apnea (adult) (pediatric); F32.9 Major depressive disorder, single episode, unspecified; Z98.84 Bariatric surgery status; Z80.9 Family history of malignant neoplasm, unspecified; Z82.49 Family history of ischemic heart disease and other diseases of the circulatory system; Z83.79 Family history of other diseases of the digestive system; Z84.1 Family history of disorders of kidney and ureter; Z79.899 Other long term (current) drug therapy

== ENCOUNTER → 2016-08-10 | Outpatient (CLI) | payer OTHER ==
[~2016-08-10] MED LIST changes: +ACET-1256 PO; +ONDA4TAB10 SL; +OPTIRAY 320 IV PRN
--- NOTE | 2016-08-10 10:51 | DIAGNOSTIC IMAGING REPORT ---
CHEST CT WITH CONTRAST CT DOSE: 211.09 mGy.cm HISTORY: Nodule LEFT LOWER LUNG NODULE TECHNIQUE: Multiaxial CT images of the chest were performed following the intravenous administration of contrast. COMPARISON: 04/30/2016 FINDINGS: Considerable improvement in the appearance of the chest CT. The effusions and lower lobe atelectatic change produces described have essentially resolved. Minimal dependent atelectasis right posterior costophrenic angle is noted. No significant parenchymal nodularity. Several small mediastinal as well as axillary nodes stable to slightly improved prior study. Multiple hepatic cysts considered stable. IMPRESSION: 1. Considerable improvement in the appearance of the chest CT. Chest at this time is currently negative for significant parenchymal pathology. 3. Several small residual nodes unchanged/mildly improved. 4. Multiple hepatic cysts previously described. Electronically signed by: Damien Cornejo M.D. 08/10/2016 10:50 AM Dictated Date/Time: 08/10/2016 10:43 AM
== END | disposition home or self-care (01) ==
LOC: C.CTS 10:22
PROVIDERS: ATTEND Family Medicine
DX: R91.1 Solitary pulmonary nodule (principal)

== ENCOUNTER → 2016-09-06 | Outpatient (CLI) | payer OTHER ==
[~2016-09-06] MED LIST changes: -OPTIRAY 320 IV PRN
[2016-09-06 19:15] LABS: URINE APPEARANCE CLEAR (CLEAR); URINE BILIRUBIN NEG (NEG); URINE COLOR YELLOW; URINE EPITHELIAL CELL AUTO 0-5 /lpf (0-5); URINE NITRITE NEG (NEG); URINE SPECIFIC GRAVITY 1.005 (1.000-1.030); UROBILINOGEN NEG (NEG)
[2016-09-06 19:20] LABS: MANUAL MICROSCOPIC REQUIRED? NO; REVIEW REQ? NO
== END | disposition home or self-care (01) ==
LOC: C.LABSPEC 17:25
PROVIDERS: ATTEND Nurse Practitioner Adult Health
DX: R39.9 Unspecified symptoms and signs involving the genitourinary system (principal); Z00.00 Encounter for general adult medical examination without abnormal findings; E11.9 Type 2 diabetes mellitus without complications; F32.9 Major depressive disorder, single episode, unspecified

== ENCOUNTER → 2016-09-07 | Outpatient (CLI) | payer OTHER ==
--- NOTE | 2016-09-07 11:20 | DIAGNOSTIC IMAGING REPORT ---
CHEST 2 VIEWS ROUTINE CLINICAL HISTORY: History of pleural effusion. COMPARISON STUDY: Chest CT August 10, 2016. FINDINGS: Lung volumes are normal. There is no pneumothorax or pleural effusion. A nipple shadow projects over the left lower lung. There is no evidence of pulmonary edema. No consolidation is identified. Cardiomediastinal silhouette is normal. IMPRESSION: No acute cardiopulmonary findings. Electronically signed by: Jerad Montalvo M.D. 09/07/2016 11:19 AM Dictated Date/Time: 09/07/2016 11:18 AM
--- NOTE | 2016-09-07 11:22 | DIAGNOSTIC IMAGING REPORT ---
RIGHT ANKLE MIN 3 VIEWS ROUTINE CLINICAL HISTORY: Bilateral ankle pain. COMPARISON: Right ankle radiographs August 10, 2005. FINDINGS: Alignment of the right ankle is anatomic. There is no fracture or suspicious lesion. Talar dome is intact. A small calcification posterior to the tibiotalar joint is of doubtful significance. Joint spaces are preserved. There is minimal osteophytosis of the tibiotalar joint. IMPRESSION: 1. No acute fracture or dislocation. 2. Mild osteophytosis of the tibiotalar joint. Electronically signed by: Jerad Montalvo M.D. 09/07/2016 11:20 AM Dictated Date/Time: 09/07/2016 11:19 AM
--- NOTE | 2016-09-07 11:23 | DIAGNOSTIC IMAGING REPORT ---
LEFT ANKLE MIN 3 VIEWS ROUTINE CLINICAL HISTORY: Bilateral ankle pain. COMPARISON: None FINDINGS: Alignment of the left ankle is anatomic. There is no fracture or suspicious lesion. A 6 mm well-corticated density along the anterior distal left tibia is noted as well as a 5 mm ossific density along the medial malleolus. These are chronic. There is an apparent 5 mm subchondral lucency within the medial talar dome. There is mild plantar calcaneal spurring. IMPRESSION: 1. No acute fracture. 2. A few well-corticated ossicles along the distal left tibia which are chronic and suggestive of old injury. 3. Possible 5 mm osteochondral defect of the medial talar dome. Electronically signed by: Jerad Montalvo M.D. 09/07/2016 11:22 AM Dictated Date/Time: 09/07/2016 11:20 AM
[2016-09-07 13:31] LABS: BASO % 0.3 %; BASO ABS # 0.01 K/uL (0-0.2); COMPLETE YES; EOS % 2.5 %; HEMATOCRIT 32.4 % (37-47); LYMPH % 43.8 %; LYMPH ABS # 1.42 K/uL (1.2-3.4); MEAN CELL VOLUME 86.4 fL (80-100); MEAN CORPUSCULAR HEMOGLOBIN 26.9 pg (25-34); MEAN CORPUSCULAR HGB CONC 31.2 g/dl (32-36); MEAN PLATELET VOLUME 11.8 fL (7.4-10.4); MONO % 6.8 %; NEUT % 46.6 %; PLATELET COUNT 203 K/uL (130-400); RED BLOOD COUNT 3.75 M/uL (4.2-5.4); WHITE BLOOD COUNT 3.24 K/uL (4.8-10.8)
[2016-09-07 13:52] LABS: ALT/SGPT 42 U/L (12-78); AST/SGOT 32 U/L (15-37); BLOOD UREA NITROGEN 12 mg/dl (7-18); BUN/CREATININE RATIO 17.5 (10-20); CALCIUM 8.7 mg/dl (8.5-10.1); CARBON DIOXIDE 30 mmol/L (21-32); CHLORIDE 108 mmol/L (98-107); CREATININE 0.69 mg/dl (0.60-1.20); GLUCOSE 82 mg/dl (70-99); POTASSIUM 4.1 mmol/L (3.5-5.1); SODIUM 142 mmol/L (136-145)
[2016-09-07 14:03] LABS: ALKALINE PHOSPHATASE 160 U/L (45-117); THYROID STIMULATING HORMONE 0.775 uIu/ml (0.300-4.500)
[2016-09-07 14:41] LABS: ESTIMATED AVERAGE GLUCOSE 117 mg/dl; HA1C FLAG Normal (Normal)
== END | disposition home or self-care (01) ==
LOC: C.LABBC 10:36
PROVIDERS: ATTEND Nurse Practitioner Adult Health
DX: Z00.00 Encounter for general adult medical examination without abnormal findings (principal); Z87.09 Personal history of other diseases of the respiratory system; F32.9 Major depressive disorder, single episode, unspecified; E11.9 Type 2 diabetes mellitus without complications; M25.571 Pain in right ankle and joints of right foot; M25.572 Pain in left ankle and joints of left foot

== ENCOUNTER 2016-10-01 19:20 | Emergency (ER) | payer OTHER ==
[~2016-10-01] VITALS: Ht 157.5 cm; Wt 61.1 kg
[~2016-10-01 19:20] MED LIST changes: -ONDA4TAB10 SL
[2016-10-01 19:29] VITALS: TEMP 37; Ht 157.5 cm; Wt 61.1 kg
[2016-10-01] MEDS ORDERED: ONDANSETRON 4MG OD TAB PO STA (19:44)
--- NOTE | 2016-10-01 20:10 | DIAGNOSTIC IMAGING REPORT ---
HEAD CT NONCONTRAST CT DOSE: 537.48 mGy.cm HISTORY: fall, head injury, light sensitivity/nausea TECHNIQUE: Multiaxial CT images of the head were performed without the use of intravenous contrast. Automated exposure control was utilized for this study. A dose lowering technique was utilized adhering to the principles of ALARA. Comparison: None. Findings: The paranasal sinuses and mastoid air cells are clear. The calvarium and skull base are intact. The ventricles and sulci are within normal limits. There is no mass, hematoma, midline shift, or acute infarct. Small old lacunar infarct within the right basal ganglia. Impression: No acute intracranial abnormality. Electronically signed by: Ady Arriaga M.D. 10/01/2016 8:08 PM Dictated Date/Time: 10/01/2016 8:03 PM
[2016-10-01] MEDS ORDERED: ONDA4TAB10 SL (20:15)
--- NOTE | 2016-10-01 20:17 | EMERGENCY ROOM VISIT NOTE ---
ED Visit Note First contact with patient: 19:36 CHIEF COMPLAINT: Head injury HISTORY OF PRESENT ILLNESS: This 55-year-old female patient presented to the emergency department, approximately one 1 hour after receiving a head injury when she fell off a chair. The patient states she was sitting in a chair, fell backwards, and bumped the back of her head. The patient reports a frontal headache, and she has not taken any medications for the pain. The patient reports nausea, light sensitivity, light headedness. She states she has not had any balance issues or dizziness. There was no brief loss of consciousness. There has been no vomiting. The headache has been constant, behind her eyes, "like a migraine". The patient complains of no neck pain. The patient rates the pain as 5/10. The patient denies bowel or bladder dysfunction. The patient denies any other injuries. REVIEW OF SYSTEMS: A 10-system review of systems was performed with positives and pertinent negatives listed in the history of present illness. All other systems were reviewed and are negative. ALLERGIES: Statins, dust, pollen MEDICATIONS: Please see list. I did personally review the patient's medication list at bedside. PMH: Seasonal allergies, atrial fibrillation, anxiety/depression SOCIAL HISTORY: The patient lives locally with family. She denies drug, alcohol , tobacco use. PHYSICAL EXAM: Vital Signs: Reviewed Nurse's notes, vital signs stable. GENERAL : This is a 55-year-old female, in no acute distress, well-developed, well- nourished. NEURO: The patient is alert, oriented to person place and time, and coherent. Normal mini mental status exam. Negative Romberg and pronator drift. Cerebellar function intact. HEAD: Normocephalic, atraumatic. There is some tenderness on the superior aspect of the head. EYES: Pupils are equal round and reactive to light and accommodation. EOMs are full and optic discs and fundi are normal. There is no swelling or discoloration of the tissue surrounding the eyes. EARS: External auditory canals clear without blood. NOSE : Patent without tenderness. No septal hematoma. FACE: No facial bone tenderness. NECK: Supple. There is no cervical spine tenderness. The patient does not have tenderness with movement of the neck. RADIOLOGY: CT scan head without contrast: TECHNIQUE: Multiaxial CT images of the head were performed without the use of intravenous contrast. Automated exposure control was utilized for this study. A dose lowering technique was utilized adhering to the principles of ALARA. Comparison: None. Findings: The paranasal sinuses and mastoid air cells are clear. The calvarium and skull base are intact. The ventricles and sulci are within normal limits. There is no mass, hematoma, midline shift, or acute infarct. Small old lacunar infarct within the right basal ganglia. Impression: No acute intracranial abnormality. ED COURSE: I examined the patient. A CT scan of the head was performed. The patient was given 4 mg Zofran sublingual, and did report improvement in her symptoms. This did not show any acute intracranial abnormalities. The patient was discharged home in good condition ambulatory. DIFFERENTIAL DIAGNOSIS: Closed head injury, concussion, intracranial hemorrhage , fracture, head contusion, and others DIAGNOSIS: Head injury, concussion DISCHARGE INSTRUCTIONS: You have been treated in the Emergency Department for a Closed Head Injury. CT Scan of your head/brain demonstrated no acute bleeding or other abnormalities. This does not completely rule out the risk for future damage to the brain. You may take Zofran as needed for nausea or vomiting. For pain control, you can use the following gxjm-pec-iceilos medicines (if >12 yo): - Regular strength (325mg/tab) Tylenol (acetaminophen) 2 tabs every 4-6 hours as needed. Do not exceed 9 tablets in a 24 hour period. Avoid taking more than 3 grams (3000 mg) of Tylenol per day. This includes any other sources of acetaminophen you may take on a regular basis. - Regular strength (200 mg/tab) Advil (ibuprofen) 1-2 tabs every 4-6 hours as needed. Do not exceed a dose of 2400 mg per day. You should relax in a quiet, dark place for the rest of the day. Avoid any possible triggers including: cigarette smoke, caffeine, nicotine, chocolate, wine, beer, loud noises or music, or bright lights. You should schedule a follow-up appointment in 2-3 days with your Primary Care Provider or established Neurologist for further evaluation and treatment of your Headache. Return to the Emergency Department if your current symptoms worsen despite treatment course outlined above, or if you develop any of the following symptoms : intractable pain despite aforementioned treatment course, visual disturbances , loss of vision, unilateral weakness or facial drooping, slurring of speech, loss of coordination, or loss of consciousness. Problem List Medical Problems: (1) Afib Status: Chronic (2) Depression Status: Chronic (3) DM2 (diabetes mellitus, type 2) Permanent Comment: Diet controlled Status: Chronic (4) HTN (hypertension) Status: Chronic (5) Hypercholesterolemia Status: Chronic (6) ELOISE on CPAP Permanent Comment: on CPAP now, and oxygen 2L/min at night Status: Chronic (7) Statin intolerance Status: Chronic Surgical Problems: (1) H/O esophagogastroduodenoscopy Status: Chronic (2) H/O gastric bypass Status: Chronic (3) H/O tubal ligation Status: Resolved (4) Previous section Status: Resolved (5) S/P colonoscopy Status: Chronic (6) S/P hernia repair Status: Chronic Current/Historical Medications Scheduled Calcium Citrate-Vitamin D (Calcium Citrate+ D), 400 MG PO BID Escitalopram Oxalate (Lexapro), 20 MG PO DAILY Levocetirizine Dihydrochloride (Xyzal), 5 MG PO QPM Metoprolol Tartrate (Lopressor) (Lopressor), 25 MG PO BID Ondasetron Odt (Zofran Odt), 4 MG SL Q6H Pediatric Multiple Vitamins W/ (Flintstones Plus Iron), 1 TAB PO BID Scheduled PRN Acetaminophen (Tylenol), 1,000 MG PO Q6 PRN for Pain Polyethylene Glycol 3350 (Miralax), 17 GM PO DAILY PRN for Constipation Senna (Senokot), 8.6 MG PO DAILY PRN for Constipation Allergies Coded Allergies: Atorvastatin (Verified Allergy, Mild, 01/09/16) Dust (Verified Allergy, Unknown, SHORTNESS OF BREATH, 01/09/16) POLLEN (Verified Allergy, Unknown, SHORTNESS OF BREATH, 01/09/16) Pravastatin (Verified Allergy, Unknown, FEVER, 01/09/16) Vital Signs Date Time Temp Pulse Resp B/P (MAP) Pulse Ox O2 Delivery O2 Flow Rate FiO2 10/01/16 20:24 60 20 105/97 95 10/01/16 19:32 18 97 10/01/16 19:29 37.0 61 18 130/76 97 Room Air Medications Administered Medications (Trade) Dose Ordered Sig/Carin Route Start Time Stop Time Status Last Admin Dose Admin Ondansetron HCl (Zofran Odt) 4 mg NOW STAT PO 10/01/16 19:44 10/01/16 19:46 DC 10/01/16 19:49 4 MG Departure Information Impression Primary Impression: Closed head injury Additional Impression: Nausea Dispostion Home / Self-Care Condition GOOD Prescriptions Ondasetron Odt (ZOFRAN ODT) 4 Mg Tab 4 MG SL Q6H for Nausea, #6 TAB Prov: Aimee Russell PA-C 10/01/16 Referrals Tina Bergman C.R.N.P. (PCP) Patient Instructions ED Head Injury Closed, [facility] Additional Instructions You have been treated in the Emergency Department for a Closed Head Injury. CT Scan of your head/brain demonstrated no acute bleeding or other abnormalities. This does not completely rule out the risk for future damage to the brain. You may take Zofran as needed for nausea or vomiting. For pain control, you can use the following dqro-hup-cyscrdj medicines (if >12 yo): - Regular strength (325mg/tab) Tylenol (acetaminophen) 2 tabs every 4-6 hours as needed. Do not exceed 9 tablets in a 24 hour period. Avoid taking more than 3 grams (3000 mg) of Tylenol per day. This includes any other sources of acetaminophen you may take on a regular basis. - Regular strength (200 mg/tab) Advil (ibuprofen) 1-2 tabs every 4-6 hours as needed. Do not exceed a dose of 2400 mg per day. You should relax in a quiet, dark place for the rest of the day. Avoid any possible triggers including: cigarette smoke, caffeine, nicotine, chocolate, wine, beer, loud noises or music, or bright lights. You should schedule a follow-up appointment in 2-3 days with your Primary Care Provider or established Neurologist for further evaluation and treatment of your Headache. Return to the Emergency Department if your current symptoms worsen despite treatment course outlined above, or if you develop any of the following symptoms : intractable pain despite aforementioned treatment course, visual disturbances , loss of vision, unilateral weakness or facial drooping, slurring of speech, loss of coordination, or loss of consciousness. Problem Qualifiers Primary Impression: Closed head injury Encounter type: initial encounter Qualified Codes: S09.90XA - Unspecified injury of head, initial encounter
[2016-10-01 20:24] VITALS: BP 105/97; PULSE 60; O2SAT 95
== END 2016-10-01 20:25 | disposition home or self-care (01) ==
LOC: C.EDB 19:20 → C.EDD 20:25
DX: S09.90XA Unspecified injury of head, initial encounter (principal); W07.XXXA Fall from chair, initial encounter; R11.0 Nausea; I48.91 Unspecified atrial fibrillation; E11.9 Type 2 diabetes mellitus without complications; I10 Essential (primary) hypertension; E78.00 Pure hypercholesterolemia, unspecified; F32.9 Major depressive disorder, single episode, unspecified; G47.33 Obstructive sleep apnea (adult) (pediatric); Z98.84 Bariatric surgery status; Z98.51 Tubal ligation status; Z98.890 Other specified postprocedural states; Z79.899 Other long term (current) drug therapy; Z88.8 Allergy status to other drugs, medicaments and biological substances; Z91.09 Other allergy status, other than to drugs and biological substances

== ENCOUNTER → 2016-10-18 | Outpatient (CLI) | payer OTHER ==
[~2016-10-18] MED LIST changes: +ONDA4TAB10 SL
== END | disposition home or self-care (01) ==
LOC: C.PAPS 13:22
PROVIDERS: ATTEND Nurse Practitioner Adult Health
DX: Z12.4 Encounter for screening for malignant neoplasm of cervix (principal)

== ENCOUNTER → 2016-11-29 | Outpatient (CLI) | payer OTHER ==
[~2016-11-29] MED LIST changes: -LEVO-371 PO; +LEVO5TAB2 PO
[2016-11-29 18:30] LABS: URINE APPEARANCE CLOUDY (CLEAR); URINE BILIRUBIN NEG (NEG); URINE COLOR YELLOW; URINE NITRITE POS (NEG); URINE PH 6.5 (4.5-7.5); URINE SPECIFIC GRAVITY 1.009 (1.000-1.030); UROBILINOGEN NEG (NEG)
[2016-11-29 18:38] LABS: MANUAL MICROSCOPIC REQUIRED? NO; REVIEW REQ? NO
== END | disposition home or self-care (01) ==
LOC: C.LABSPEC 17:40
PROVIDERS: ATTEND Nurse Practitioner Family
DX: N39.0 Urinary tract infection, site not specified (principal)

== ENCOUNTER → 2016-12-07 | Outpatient (CLI) | payer OTHER ==
[2016-12-07 16:54] LABS: BASO % 0.2 %; BASO ABS # 0.01 K/uL (0-0.2); COMPLETE YES; EOS % 2.2 %; HEMATOCRIT 31.7 % (37-47); IG% 0.2 %; LYMPH % 39.7 %; MEAN CELL VOLUME 88.3 fL (80-100); MEAN CORPUSCULAR HEMOGLOBIN 27.3 pg (25-34); MEAN CORPUSCULAR HGB CONC 30.9 g/dl (32-36); MEAN PLATELET VOLUME 11.7 fL (7.4-10.4); MONO % 8.3 %; NEUT % 49.4 %; PLATELET COUNT 267 K/uL (130-400); RED BLOOD COUNT 3.59 M/uL (4.2-5.4); WHITE BLOOD COUNT 5.04 K/uL (4.8-10.8)
[2016-12-07 17:11] LABS: CHOLESTEROL/HDL RATIO 2.1; FERRITIN 12.2 ng/ml (8.0-388.0)
[2016-12-08 06:49] LABS: ESTIMATED AVERAGE GLUCOSE 105 mg/dl; HA1C FLAG Normal (Normal)
== END | disposition home or self-care (01) ==
LOC: C.LABBC 14:23
PROVIDERS: ATTEND Nurse Practitioner Adult Health
DX: D64.9 Anemia, unspecified (principal); E11.9 Type 2 diabetes mellitus without complications

== ENCOUNTER → 2017-01-08 | Outpatient (CLI) | payer OTHER ==
[2017-01-11 22:28] LABS: IGA SERUM 223 mg/dL (81-463); TIS TRANS IGA 1 U/mL (<4)
== END | disposition home or self-care (01) ==
LOC: C.LABBC 14:18
PROVIDERS: ATTEND Physician Assistant
DX: E11.9 Type 2 diabetes mellitus without complications (principal)

== ENCOUNTER → 2017-01-11 | Outpatient (CLI) | payer OTHER ==
[~2017-01-11] MED LIST changes: +ERGO500037 PO; +GLC/500 PO; +POLY335019 PO
== END | disposition home or self-care (01) ==
LOC: C.RC 17:03
PROVIDERS: ATTEND Internal Medicine Pulmonary Disease
DX: G47.33 Obstructive sleep apnea (adult) (pediatric) (principal)

== ENCOUNTER → 2017-01-18 | Day surgery (SDC) | payer OTHER ==
[2017-01-15 10:34] VITALS: Ht 157.5 cm; Wt 61.4 kg
[~2017-01-18] VITALS: Ht 157.5 cm; Wt 61.4 kg
[~2017-01-18] MED LIST changes: -ACET-1256 PO; +DEXTROSE 50% 50 ML SYR ONE; +LIDOCAINE HCL 2% 2 ML VIAL (20MG/ML) ONE; +MIDAZOLAM HCL 1 MG/ML 2ML VIAL ONE; -ONDA4TAB10 SL; +ONDANSETRON INJ 2 MG/ML 2 ML VIAL ONE; -POLY335025 PO; +PROPOFOL IV EMULSION 10 MG/ML 20 ML VIAL IV ONE; -SENN-61 PO; +SODIUM CHLORIDE 0.9% 500ML 500 ML IV ONE
--- NOTE | 2017-01-18 12:01 | Endo History and Physical ---
History & Physical Date of Service: Jan 18, 2017. Chief Complaint: anemia and rectal bleeding Referring Physician: PAT Gan History of Present Illness 56 yo CF who presents for EGD and Colonoscopy secondary to anemia and rectal bleeding. Past Medical History Atrial Fibrillation, Diabetes, Sleep Apnea, Hypertension, Depression Past Surgical History Hx Cardiac Surgery: No Hx Internal Defibrillator: No Hx Pacemaker: No Hx Abdominal Surgery: Yes (GASTRIC BYPASS SURGERY/I&D (INFECTION), TUBAL LIGATION, X 2) Hx of Implantable Prosthesis: No Hx Post-Op Nausea and Vomiting: No Hx Cancer Surgery: No Hx Thoracic Surgery: No Hx Orthopedic: No Hx Urinary Tract Surgery: No Family History None Social History Smoking Status: Never Smoker Hx Substance Use: No Hx Alcohol Use: No Allergies Coded Allergies: Atorvastatin (Verified Allergy, Mild, MUSCLE ACHES, 01/18/17) Dust (Verified Allergy, Unknown, SHORTNESS OF BREATH, 01/18/17) POLLEN (Verified Allergy, Unknown, SHORTNESS OF BREATH, 01/18/17) Pravastatin (Verified Allergy, Unknown, FEVER, 01/18/17) Current Medications Reported Home Medications Medications Dose Route/Sig Max Daily Dose Days Date Category Miralax (Polyethylene Glycol 3350) 1 17 Gm PO DAILY PRN 01/15/17 Reported Vitamin D 69829 Unit (Ergocalciferol) 50,000 Unit Cap 50,000 Unit PO WK 01/15/17 Reported Lexapro (Escitalopram Oxalate) 20 Mg Tab 20 Mg PO QAM 01/15/17 Reported Glucophage (Metformin Hcl) 500 Mg Tab 500 Mg PO QPM 01/15/17 Reported Lopressor (Metoprolol Tartrate) 50 Mg Tab 25 Mg PO BID 01/15/17 Reported Xyzal (Levocetirizine Dihydrochloride) 5 Mg Tab 5 Mg PO QPM 08/28/13 Reported Calcium Citrate+ D (Calcium Citrate-Vitamin D) 1 Tab Tab 400 Mg PO BID 08/28/13 Reported Flintstones Plus Iron (Pediatric Multiple Vitamins W/) 1 Chw Chw 1 Tab PO BID 08/28/13 Reported Vital Signs Weight (Kilograms): 61.36 Height (Feet): 5 Height (Inches): 2 Date Time Temp Pulse Resp B/P (MAP) Pulse Ox O2 Delivery O2 Flow Rate FiO2 01/18/17 11:27 36.5 63 16 93/53 (66) 98 Room Air Physical Exam General Appearance: WD/WN, no apparent distress Respiratory/Chest: Auscultation: breath sounds normal Cardiovascular: Heart Auscultation: RRR Abdomen: Bowel Sounds: normal Inspection & Palpation: soft, non-distended, no tenderness, guarding & rebound Assessment and Plan Assessment: 56 yo CF who presents for EGD and Colonoscopy secondary to anemia and rectal bleeding. Plan: Proceed with EGD and colonoscopy.
--- NOTE | 2017-01-18 12:58 | Discharge Instructions ---
Endoscopy Patient Instructions Date / Procedure(s) Performed Jan 18, 2017. Colonoscopy, EGD Allergy Information Coded Allergies: Atorvastatin (Verified Allergy, Mild, MUSCLE ACHES, 01/18/17) Dust (Verified Allergy, Unknown, SHORTNESS OF BREATH, 01/18/17) POLLEN (Verified Allergy, Unknown, SHORTNESS OF BREATH, 01/18/17) Pravastatin (Verified Allergy, Unknown, FEVER, 01/18/17) Discharge Date / Findings Jan 18, 2017. EGD: History of Gastric bypass with anastomotic ulcer Colonoscopy: Diverticulosis and Internal hemorrhoids Medication Instructions 1) Start Carafate 1g by mouth four times daily prior to each meal and at bedtime for 1 month. 2) OK to resume all medications today as prescribed Reported Home Medications Medications Dose Route/Sig Max Daily Dose Days Date Category Miralax (Polyethylene Glycol 3350) 1 Gm PO DAILY PRN 01/15/17 Reported Vitamin D 72660 Unit (Ergocalciferol) 50,000 Unit Cap 50,000 Unit PO WK 01/15/17 Reported Lexapro (Escitalopram Oxalate) 20 Mg Tab 20 Mg PO QAM 01/15/17 Reported Glucophage (Metformin Hcl) 500 Mg Tab 500 Mg PO QPM 01/15/17 Reported Lopressor (Metoprolol Tartrate) 50 Mg Tab 25 Mg PO BID 01/15/17 Reported Xyzal (Levocetirizine Dihydrochloride) 5 Mg Tab 5 Mg PO QPM 08/28/13 Reported Calcium Citrate+ D (Calcium Citrate-Vitamin D) 1 Tab Tab 400 Mg PO BID 08/28/13 Reported Flintstones Plus Iron (Pediatric Multiple Vitamins W/) 1 Chw Chw 1 Tab PO BID 08/28/13 Reported Provider Instructions Activity Restrictions - No exercising or heavy lifting for 24 hours. - Do not drink alcohol the day of the procedure. - Do not drive a car or operate machinery until the day after the procedure. - Do not make any important decisions or sign important papers in 24 hours after the procedure. Following Day: - Return to full activity which may include returning to work/school. Diet Start your diet with liquids and light foods (jello, soup, juice, toast). Then eat your usual diet if not nauseated. Treatment For Common After Affects For mild abdominal pain, bloating, or excessive gas: - Rest - Eat lightly - Lie on right side Follow-Up Information Follow-up with PAT Gan as scheduled Anesthesia Information What You Should Know You have had a procedure that required some medicine to reduce anxiety and discomfort. This treatment is called moderate sedation. After receiving the treatment, you may be sleepy, but you will be able to breathe on your own. The effects of the treatment may last for several hours. Follow these instructions along with Activity/Diet recommendations noted above: * Do NOT do anything where dizziness or clumsiness would be dangerous. * Rest quietly at home today, then you can be up and about tomorrow. * Have a responsible person stay with you the rest of today. * You may have had an I.V. today. If so, you may take the dressing off later today. Recommendations Call your doctor if: * Trouble breathing * Continuous vomiting for more than 24 hours * Temperature above 101 degrees * Severe abdominal pain or bloating * Pain not relieved by pain medicine ordered * There is increased drainage or redness from any incision * A large amount of rectal bleeding greater than 2-3 tablespoons. (If you had a polyp/s removed or have hemorrhoids, a small amount of blood - from the rectum is to be expected.) * You have any unanswered questions or concerns. IN THE EVENT OF A SERIOUS EMERGENCY, GO TO THE NEAREST EMERGENCY ROOM Your discharge instructions were prepared by provider Christopher Mo. Patient Instructions Signature Page Crista Adair Patient (or Guardian) Signature/Date: I have read and understand the instructions given to me by my caregivers. Caregiver/RN/Doctor Signature/Date: The above-named patient and/or guardian has received patient instructions on this date. + Original Patient Signature Page (only) stays with chart. Please make copy for patient.
--- NOTE | 2017-01-18 13:02 | GI REPORT ---
Procedure Date: 01/18/2017 12:13 PM Procedure: Colonoscopy Indications: Rectal bleeding, Iron deficiency anemia Medicines: Monitored Anesthesia Care Complications: No immediate complications. Estimated Blood Loss: Estimated blood loss: none. Procedure: Pre-Anesthesia Assessment: - Prior to the procedure, a History and Physical was performed, and patient medications and allergies were reviewed. The patient's tolerance of previous anesthesia was also reviewed. The risks and benefits of the procedure and the sedation options and risks were discussed with the patient. All questions were answered, and informed consent was obtained. Prior Anticoagulants: The patient has taken no previous anticoagulant or antiplatelet agents. ASA Grade Assessment: III - A patient with severe systemic disease. After reviewing the risks and benefits, the patient was deemed in satisfactory condition to undergo the procedure. After I obtained informed consent, the scope was passed under direct vision. Throughout the procedure, the patient's blood pressure, pulse, and oxygen saturations were monitored continuously. The scope was introduced through the anus and advanced to the terminal ileum. The colonoscopy was performed without difficulty. The patient tolerated the procedure well. The quality of the bowel preparation was good. The terminal ileum, ileocecal valve, appendiceal orifice, and rectum were photographed. Findings: The perianal and digital rectal examinations were normal. Scattered small-mouthed diverticula were found in the entire colon. Non-bleeding internal hemorrhoids were found during retroflexion. The hemorrhoids were small. Impression: - Diverticulosis in the entire examined colon. - Non-bleeding internal hemorrhoids. - No specimens collected. Recommendation: - Resume previous diet. - Continue present medications. - Repeat colonoscopy in 10 years for surveillance. - Return to primary care physician as previously scheduled. Christopher Mo, 01/18/2017 1:02:27 PM This report has been signed electronically. Note Initiated On: 01/18/2017 12:13 PM I attest to the content of the Intraoperative Record and orders documented therein, exceptions below
--- NOTE | 2017-01-18 13:09 | GI REPORT ---
Procedure Date: 01/18/2017 12:14 PM Procedure: Upper GI endoscopy Indications: Iron deficiency anemia Medicines: Monitored Anesthesia Care Complications: No immediate complications. Estimated Blood Loss: Estimated blood loss: none. Procedure: Pre-Anesthesia Assessment: - Prior to the procedure, a History and Physical was performed, and patient medications and allergies were reviewed. The patient's tolerance of previous anesthesia was also reviewed. The risks and benefits of the procedure and the sedation options and risks were discussed with the patient. All questions were answered, and informed consent was obtained. Prior Anticoagulants: The patient has taken no previous anticoagulant or antiplatelet agents. ASA Grade Assessment: III - A patient with severe systemic disease. After reviewing the risks and benefits, the patient was deemed in satisfactory condition to undergo the procedure. After obtaining informed consent, the endoscope was passed under direct vision. Throughout the procedure, the patient's blood pressure, pulse, and oxygen saturations were monitored continuously. The Scope was introduced through the mouth, and advanced to the jejunum. The upper GI endoscopy was accomplished without difficulty. The patient tolerated the procedure well. Findings: The esophagus was normal. Evidence of a gastric bypass was found. A gastric pouch with a normal size was found. The gastrojejunal anastomosis was characterized by ulceration. This was traversed. The [id number] limb was not examined as it could not be found. The examined jejunum was normal. Impression: - Normal esophagus. - Gastric bypass with a normal-sized pouch. Gastrojejunal anastomosis characterized by ulceration. - Normal examined jejunum. - No specimens collected. Recommendation: - Resume previous diet. - Use sucralfate suspension 1 gram PO QID for 1 month. - Return to GI office as previously scheduled. Christopher Mo DO 01/18/2017 1:09:25 PM This report has been signed electronically. Note Initiated On: 01/18/2017 12:14 PM I attest to the content of the Intraoperative Record and orders documented therein, exceptions below
[2017-01-18 13:28] VITALS: BP 90/64; PULSE 63; O2SAT 100
--- NOTE | 2017-01-18 13:31 | Anesthesiology Progress Note ---
Anesthesia Post Op Note Date & Time Jan 18, 2017 at 13:31 Vital Signs Pain Intensity: 0 Vital Signs Past 12 Hours Date Time Temp Pulse Resp B/P (MAP) Pulse Ox O2 Delivery O2 Flow Rate FiO2 01/18/17 13:17 73 18 89/60 (70) 96 Room Air 01/18/17 13:02 83 16 96/60 (72) 96 Room Air 01/18/17 11:27 36.5 63 16 93/53 (66) 98 Room Air Notes Mental Status: alert / awake / arousable, participated in evaluation Pt Amnestic to Procedure: Yes Nausea / Vomiting: adequately controlled Pain: adequately controlled Airway Patency, RR, SpO2: stable & adequate BP & HR: stable & adequate Hydration State: stable & adequate Anesthetic Complications: no major complications apparent The patient feels well in recovery with no complaints. Her BSG prior to discharge is 114 and she is tolerating PO. Her last BP was 105/60.
== END | disposition home or self-care (01) ==
LOC: C.GI 11:11
PROVIDERS: ATTEND Internal Medicine
DX: D64.9 Anemia, unspecified (principal); K62.5 Hemorrhage of anus and rectum; K57.30 Diverticulosis of large intestine without perforation or abscess without bleeding; K64.8 Other hemorrhoids; K28.9 Gastrojejunal ulcer, unspecified as acute or chronic, without hemorrhage or perforation; I48.91 Unspecified atrial fibrillation; E11.9 Type 2 diabetes mellitus without complications; I10 Essential (primary) hypertension; G47.33 Obstructive sleep apnea (adult) (pediatric); F32.9 Major depressive disorder, single episode, unspecified; Z98.84 Bariatric surgery status; Z98.51 Tubal ligation status; Z79.84 Long term (current) use of oral hypoglycemic drugs; M19.90 Unspecified osteoarthritis, unspecified site

== ENCOUNTER → 2017-01-26 | Outpatient (CLI) | payer OTHER ==
[~2017-01-26] MED LIST changes: -DEXTROSE 50% 50 ML SYR ONE; -LIDOCAINE HCL 2% 2 ML VIAL (20MG/ML) ONE; -MIDAZOLAM HCL 1 MG/ML 2ML VIAL ONE; -ONDANSETRON INJ 2 MG/ML 2 ML VIAL ONE; -PROPOFOL IV EMULSION 10 MG/ML 20 ML VIAL IV ONE; -SODIUM CHLORIDE 0.9% 500ML 500 ML IV ONE
[2017-01-26 13:40] LABS: URINE APPEARANCE TURBID (CLEAR); URINE BILIRUBIN NEG (NEG); URINE COLOR YELLOW; URINE EPITHELIAL CELL AUTO >30 /lpf (0-5); URINE NITRITE NEG (NEG); URINE SPECIFIC GRAVITY 1.022 (1.000-1.030); UROBILINOGEN NEG (NEG); ZZUR CULT IF INDIC CLEAN CATCH YES
[2017-01-26 13:47] LABS: MANUAL MICROSCOPIC REQUIRED? NO; REVIEW REQ? YES
== END | disposition home or self-care (01) ==
LOC: C.LABSPEC 11:45
PROVIDERS: ATTEND Internal Medicine
DX: N39.0 Urinary tract infection, site not specified (principal)

== ENCOUNTER → 2017-02-09 | Outpatient (CLI) | payer OTHER ==
[~2017-02-09] MED LIST changes: +CITA20TA9 PO; +FESO8TAB PO; +ONDA4TAB10 SL; +PANT40TA PO
[2017-02-09 13:22] LABS: BASO % 0.2 %; BASO ABS # 0.01 K/uL (0-0.2); EOS % 1.2 %; EOS ABS # 0.07 K/uL (0-0.5); HEMATOCRIT 31.7 % (37-47); HEMOGLOBIN 9.8 g/dL (12.0-16.0); IG# 0.01 K/uL (0.00-0.02); LYMPH % 32.1 %; LYMPH ABS # 1.88 K/uL (1.2-3.4); MEAN CELL VOLUME 86.1 fL (80-100); MEAN CORPUSCULAR HEMOGLOBIN 26.6 pg (25-34); MEAN CORPUSCULAR HGB CONC 30.9 g/dl (32-36); MEAN PLATELET VOLUME 11.2 fL (7.4-10.4); MONO % 7.5 %; MONO ABS # 0.44 K/uL (0.11-0.59); NEUT % 58.8 %; NEUT ABS # 3.45 K/uL (1.4-6.5); PLATELET COUNT 279 K/uL (130-400); RED CELL DISTRIBUTION WIDTH SD 47.6 fL (36.4-46.3); WHITE BLOOD COUNT 5.86 K/uL (4.8-10.8)
[2017-02-09 13:25] LABS: ALBUMIN 3.5 gm/dl (3.4-5.0); ALT/SGPT 31 U/L (12-78); AST/SGOT 22 U/L (15-37); BLOOD UREA NITROGEN 21 mg/dl (7-18); CALCIUM 8.8 mg/dl (8.5-10.1); CARBON DIOXIDE 29 mmol/L (21-32); CREATININE 0.85 mg/dl (0.60-1.20); GLUCOSE 84 mg/dl (70-99); SODIUM 138 mmol/L (136-145)
[2017-02-09 13:27] LABS: ALKALINE PHOSPHATASE 134 U/L (45-117); TOTAL PROTEIN 7.2 gm/dl (6.4-8.2)
== END | disposition home or self-care (01) ==
LOC: C.LABBC 11:54
PROVIDERS: ATTEND Nurse Practitioner Adult Health
DX: D64.9 Anemia, unspecified (principal)

== ENCOUNTER → 2017-02-09 | Outpatient (CLI) | payer OTHER | END | disposition home or self-care (01) | LOC: C.LABSPEC 10:30 | PROVIDERS: ATTEND Internal Medicine | DX: R39.9 Unspecified symptoms and signs involving the genitourinary system (principal) ==

== ENCOUNTER → 2017-03-27 | Outpatient (CLI) | payer OTHER ==
[~2017-03-27] MED LIST changes: -CITA20TA9 PO; -FESO8TAB PO; -ONDA4TAB10 SL; -PANT40TA PO
--- NOTE | 2017-03-28 15:10 | MAMMOGRAPHY REPORT ---
BILATERAL DIGITAL SCREENING MAMMOGRAM TOMOSYNTHESIS WITH CAD: 03/27/2017 CLINICAL HISTORY: Routine screening. Patient has no complaints. TECHNIQUE: Breast tomosynthesis in addition to standard 2D mammography was performed. Current study was also evaluated with a Computer Aided Detection (CAD) system. COMPARISON: Comparison is made to exams dated: 02/28/2015 mammogram, 06/06/2013 mammogram, 02/11/2012 mammogram, 02/08/2011 mammogram, and 02/07/2010 mammogram - [facility]. BREAST COMPOSITION: There are scattered areas of fibroglandular density in both breasts. FINDINGS: No suspicious masses, calcifications, or areas of architectural distortion are noted in ei ther breast. There has been no significant interval change compared to prior exams. Scattered bilater al benign-appearing calcifications are not significantly changed. IMPRESSION: ACR BI-RADS CATEGORY 2: BENIGN There is no mammographic evidence of malignancy. A 1 year screening mammogram is recommended. The pa tient will receive written notification of the results. Approximately 10% of breast cancers are not detected with mammography. A negative mammographic report should not delay biopsy if a clinically suggestive mass is present. Izzy Murphy M.D. ah/:03/27/2017 15:41:32 Client Integration Manager: Grace PETERS)(M), [facility] [address] letter sent: Normal 1/2 BI-RADS Code: ACR BI-RADS Category 2: Benign
== END ==
LOC: C.MAMM 13:58
PROVIDERS: ATTEND Family Medicine
DX: Z12.31 Encounter for screening mammogram for malignant neoplasm of breast (principal)

== ENCOUNTER → 2017-04-23 | Outpatient (CLI) | payer OTHER ==
[2017-04-23 11:23] LABS: BASO % 0.2 %; BASO ABS # 0.01 K/uL (0-0.2); EOS % 2.3 %; EOS ABS # 0.13 K/uL (0-0.5); HEMOGLOBIN 11.2 g/dL (12.0-16.0); IG# 0.01 K/uL (0.00-0.02); LYMPH % 34.5 %; LYMPH ABS # 1.91 K/uL (1.2-3.4); MEAN CELL VOLUME 86.2 fL (80-100); MEAN CORPUSCULAR HEMOGLOBIN 27.6 pg (25-34); MEAN PLATELET VOLUME 11.4 fL (7.4-10.4); MONO % 9.6 %; MONO ABS # 0.53 K/uL (0.11-0.59); NEUT % 53.2 %; NEUT ABS # 2.95 K/uL (1.4-6.5); NUCLEATED RED BLOOD CELL ABS 0.02 K/uL (0-0); PLATELET COUNT 309 K/uL (130-400); RED CELL DISTRIBUTION WIDTH CV 16.9 % (11.5-14.5); RED CELL DISTRIBUTION WIDTH SD 53.1 fL (36.4-46.3); WHITE BLOOD COUNT 5.54 K/uL (4.8-10.8)
[2017-04-23 11:43] LABS: ALBUMIN 3.8 gm/dl (3.4-5.0); ALT/SGPT 25 U/L (12-78); AST/SGOT 23 U/L (15-37); BLOOD UREA NITROGEN 18 mg/dl (7-18); CALCIUM 9.1 mg/dl (8.5-10.1); CARBON DIOXIDE 30 mmol/L (21-32); CHOLESTEROL 165 mg/dl (0-200); CREATININE 0.86 mg/dl (0.60-1.20); GLUCOSE 85 mg/dl (70-99); HEMOGLOBIN A1C 5.5 % (4.5-5.6); POTASSIUM 4.3 mmol/L (3.5-5.1); SODIUM 139 mmol/L (136-145)
[2017-04-23 11:45] LABS: ALKALINE PHOSPHATASE 94 U/L (45-117); LDL CHOLESTEROL CALCULATED 94 mg/dl; TOTAL PROTEIN 7.6 gm/dl (6.4-8.2)
== END | disposition home or self-care (01) ==
LOC: C.LABBC 07:36
PROVIDERS: ATTEND Nurse Practitioner Family
DX: E11.9 Type 2 diabetes mellitus without complications (principal); D64.9 Anemia, unspecified; E55.9 Vitamin D deficiency, unspecified; E78.00 Pure hypercholesterolemia, unspecified

== ENCOUNTER → 2017-05-02 | Outpatient (CLI) | payer OTHER ==
[2017-05-02 17:16] LABS: BASO % 0.2 %; BASO ABS # 0.01 K/uL (0-0.2); EOS % 2.7 %; EOS ABS # 0.14 K/uL (0-0.5); HEMATOCRIT 36.3 % (37-47); HEMOGLOBIN 11.5 g/dL (12.0-16.0); IG# 0.02 K/uL (0.00-0.02); LYMPH % 47.8 %; LYMPH ABS # 2.51 K/uL (1.2-3.4); MEAN CELL VOLUME 86.4 fL (80-100); MEAN CORPUSCULAR HEMOGLOBIN 27.4 pg (25-34); MEAN CORPUSCULAR HGB CONC 31.7 g/dl (32-36); MEAN PLATELET VOLUME 11.9 fL (7.4-10.4); MONO % 8.6 %; MONO ABS # 0.45 K/uL (0.11-0.59); NEUT % 40.3 %; NEUT ABS # 2.12 K/uL (1.4-6.5); PLATELET COUNT 286 K/uL (130-400); RED CELL DISTRIBUTION WIDTH CV 16.8 % (11.5-14.5); RED CELL DISTRIBUTION WIDTH SD 53.1 fL (36.4-46.3); WHITE BLOOD COUNT 5.25 K/uL (4.8-10.8)
== END | disposition home or self-care (01) ==
LOC: C.LABBC 14:13
PROVIDERS: ATTEND Physician Assistant
DX: D64.9 Anemia, unspecified (principal)

== ENCOUNTER → 2017-05-07 | Outpatient (CLI) | payer OTHER | END | disposition home or self-care (01) | LOC: C.LABSPEC 10:52 | PROVIDERS: ATTEND Nurse Practitioner Family | DX: R82.90 Unspecified abnormal findings in urine (principal); R35.0 Frequency of micturition ==

== ENCOUNTER → 2017-05-21 | Outpatient (CLI) | payer OTHER | END | disposition home or self-care (01) | LOC: C.MAMM 11:08 | PROVIDERS: ATTEND Nurse Practitioner Family | DX: M85.89 Other specified disorders of bone density and structure, multiple sites (principal); E55.9 Vitamin D deficiency, unspecified ==

== ENCOUNTER 2017-06-23 22:24 | Emergency (ER) | payer OTHER ==
[~2017-06-23] VITALS: Ht 157.5 cm; Wt 67.1 kg
[2017-06-23 22:31] VITALS: TEMP 36.8; Ht 157.5 cm; Wt 67.1 kg
[2017-06-23] MEDS ORDERED: METOCLOPRAMIDE HCL INJ 5 MG/ML 2 ML VIAL IV STA (23:02)
[2017-06-23] MEDS ORDERED: SODIUM CHLORIDE 0.9% 1000ML 1,000 ML IV STA (23:02)
[2017-06-23] MEDS ORDERED: FESO8TAB PO (23:08)
[2017-06-23] MEDS ORDERED: CITA20TA9 PO (23:09)
[2017-06-23] MEDS ORDERED: OPTIRAY 320 IV PRN (23:15)
[2017-06-23 23:26] LABS: BASO % 0.2 %; BASO ABS # 0.01 K/uL (0-0.2); EOS % 2.2 %; EOS ABS # 0.09 K/uL (0-0.5); IG# 0.01 K/uL (0.00-0.02); LYMPH % 44.4 %; LYMPH ABS # 1.82 K/uL (1.2-3.4); MEAN CELL VOLUME 85.5 fL (80-100); MEAN CORPUSCULAR HEMOGLOBIN 28.5 pg (25-34); MEAN CORPUSCULAR HGB CONC 33.3 g/dl (32-36); MEAN PLATELET VOLUME 10.9 fL (7.4-10.4); MONO % 8.3 %; MONO ABS # 0.34 K/uL (0.11-0.59); NEUT % 44.7 %; NEUT ABS # 1.83 K/uL (1.4-6.5); PLATELET COUNT 201 K/uL (130-400); RED CELL DISTRIBUTION WIDTH SD 53.7 fL (36.4-46.3)
[2017-06-23 23:48] LABS: ALBUMIN 3.7 gm/dl (3.4-5.0); CALCIUM 9.1 mg/dl (8.5-10.1); CREATININE 1.05 mg/dl (0.60-1.20); POTASSIUM 4.3 mmol/L (3.5-5.1)
[2017-06-23 23:51] LABS: TOTAL PROTEIN 7.7 gm/dl (6.4-8.2)
[2017-06-23] MEDS ORDERED: ONDANSETRON INJ 2 MG/ML 2 ML VIAL IV STA (23:56)
[2017-06-24] MEDS ORDERED: ONDA4TAB10 SL (00:57)
[2017-06-24] MEDS ORDERED: PANT40TA PO (00:57)
--- NOTE | 2017-06-24 01:01 | EMERGENCY ROOM VISIT NOTE ---
History First contact with patient: 22:36 Chief Complaint: ABDOMINAL PAIN Stated Complaint: ABD PAIN, VOMITTING Nursing Triage Summary: Pt c/o mid abdominal pain that started approx. 3 hours ago with nausea and increased belching. Pt has hx of SBO and is concerned this is the start of one. pt states she has problems with constipation. History of Present Illness The patient is a 56 year old female who presents to the Emergency Room with complaints of abdominal bloating and belching. The patient reports that her symptoms started a few hours prior to arrival. She reports she has bloating and discomfort in her upper abdomen as well as repeated belching. She had one episode of vomiting. She reports a history of small bowel obstructions and feels like this could be the start of an obstruction. Her most recent bowel obstruction was 1 year ago. The patient reports a history of multiple abdominal surgeries, including gastric bypass, removal of part of her liver, hernia repair, cholecystectomy, 2 C-sections and tubal ligation. She states her last bowel movement was a few hours ago, but she has been constipated today. She rates her overall discomfort a 6/10. She denies any chest pain, shortness of breath, urinary symptoms or fevers. She denies any blood in her stools. Review of Systems A complete 10 point review of systems was reviewed with the patient with pertinent positives and negatives as per history of present illness. All else were negative. Past Medical/Surgical History Medical Problems: (1) Afib (2) Chest pain (3) Depression (4) DM2 (diabetes mellitus, type 2) (5) HTN (hypertension) (6) Hypercholesterolemia (7) ELOISE on CPAP (8) SBO (small bowel obstruction) (9) Statin intolerance Surgical Problems: (1) H/O esophagogastroduodenoscopy (2) H/O gastric bypass (3) H/O tubal ligation (4) Previous section (5) S/P colonoscopy (6) S/P hernia repair Family History Cancer FH: hepatitis FATHER FH: hyperlipidemia BROTHER FH: myocardial infarction FATHER, Onset:38 FHx: heart disease FATHER GRANDFATHER GRANDMOTHER Gallbladder disease Heart disease Hypertension Kidney disease Social History Smoking Status: Never Smoker Alcohol Use: none Drug Use: none Marital Status: Housing Status: lives with family Occupation Status: employed Current/Historical Medications Scheduled Citalopram Hydrobromide (Celexa), 20 MG PO DAILY Escitalopram Oxalate (Lexapro), 20 MG PO QAM Fesoterodine Fumarate (Toviaz), 8 MG PO DIRECTED Levocetirizine Dihydrochloride (Xyzal), 5 MG PO QPM Metformin Hcl (Glucophage), 500 MG PO QPM Metoprolol Tartrate (Lopressor) (Lopressor), 25 MG PO BID Ondasetron Odt (Zofran Odt), 4 MG SL Q6H Pantoprazole (Protonix), 40 MG PO DAILY Physical Exam Vital Signs Date Time Temp Pulse Resp B/P (MAP) Pulse Ox O2 Delivery O2 Flow Rate FiO2 06/24/17 01:12 75 18 103/64 94 06/24/17 00:31 77 18 98/53 94 Room Air 06/23/17 22:31 36.8 73 20 137/76 99 Room Air Physical Exam VITALS: Vitals are noted on the nurse's note and reviewed by myself. Vital signs stable. GENERAL: This is a 56-year-old female, in no acute distress, repeatedly belching , well-developed well-nourished. SKIN: The skin was without rashes. MOUTH: Mucous membranes moist. NECK: Supple without nuchal rigidity. HEART: Regular rate and rhythm without murmurs gallops or rubs. LUNGS: Clear to auscultation bilaterally without wheezes, rales or rhonchi. ABDOMEN: Bowel sounds slightly hypoactive. Slight epigastric tenderness to palpation. No guarding or rebound tenderness. NEURO: Patient was alert and oriented to person place and time. Medical Decision & Procedures ER Provider Diagnostic Interpretation: CT ABDOMEN & PELVIS With Contrast: Hepatomegaly. Multiple nonenhancing cysts scattered throughout the liver are likely benign. Gallbladder is not identified. No biliary dilatation. Multiple nonenhancing cysts in both kidneys probably benign. No hydronephrosis. Normal appendix. Moderate stool throughout the colon. Status post gastric bypass surgery. Fluid in the distal esophagus suggests gastroesophageal reflux. Diastases of the abdominal rectus muscles. Small periumbilical hernia containing a loop of small bowel. Loop of small bowel within the hernia demonstrates mild wall thickening but normal enhancement. No surrounding fluid. No other findings to explain patient's symptoms. Radiologist: Mere Rutherford MD Laboratory Results 06/23/17 23:05 Red Blood Count 4.21, Mean Corpuscular Volume 85.5, Mean Corpuscular Hemoglobin 28.5, Mean Corpuscular Hemoglobin Concent 33.3, Mean Platelet Volume 10.9, Neutrophils (%) (Auto) 44.7, Lymphocytes (%) (Auto) 44.4, Monocytes (%) (Auto) 8.3, Eosinophils (%) (Auto) 2.2, Basophils (%) (Auto) 0.2, Neutrophils # (Auto) 1.83, Lymphocytes # (Auto) 1.82, Monocytes # (Auto) 0.34, Eosinophils # (Auto) 0.09, Basophils # (Auto) 0.01 06/23/17 23:05 Test 06/23/17 22:40 06/23/17 23:05 Urine Color YELLOW Urine Appearance ERROR (CLEAR) Urine pH 7.5 (4.5-7.5) Urine Specific [place] 1.012 (1.000-1.030) Urine Protein NEG (NEG) Urine Glucose (UA) NEG (NEG) Urine Ketones NEG (NEG) Urine Occult Blood NEG (NEG) Urine Nitrite NEG (NEG) Urine Bilirubin NEG (NEG) Urine Urobilinogen NEG (NEG) Urine Leukocyte Esterase MODERATE (NEG) Urine WBC (Auto) 5-10 /hpf (0-5) Urine RBC (Auto) 0-4 /hpf (0-4) Urine Hyaline Casts (Auto) 0 /lpf (0-5) Urine Epithelial Cells (Auto) >30 /lpf (0-5) Urine Bacteria (Auto) NEG (NEG) White Blood Count 4.10 K/uL (4.8-10.8) Red Blood Count 4.21 M/uL (4.2-5.4) Hemoglobin 12.0 g/dL (12.0-16.0) Hematocrit 36.0 % (37-47) Mean Corpuscular Volume 85.5 fL (80-100) Mean Corpuscular Hemoglobin 28.5 pg (25-34) Mean Corpuscular Hemoglobin Concent 33.3 g/dl (32-36) Platelet Count 201 K/uL (130-400) Mean Platelet Volume 10.9 fL (7.4-10.4) Neutrophils (%) (Auto) 44.7 % Lymphocytes (%) (Auto) 44.4 % Monocytes (%) (Auto) 8.3 % Eosinophils (%) (Auto) 2.2 % Basophils (%) (Auto) 0.2 % Neutrophils # (Auto) 1.83 K/uL (1.4-6.5) Lymphocytes # (Auto) 1.82 K/uL (1.2-3.4) Monocytes # (Auto) 0.34 K/uL (0.11-0.59) Eosinophils # (Auto) 0.09 K/uL (0-0.5) Basophils # (Auto) 0.01 K/uL (0-0.2) RDW Standard Deviation 53.7 fL (36.4-46.3) RDW Coefficient of Variation 17.0 % (11.5-14.5) Immature Granulocyte % (Auto) 0.2 % Immature Granulocyte # (Auto) 0.01 K/uL (0.00-0.02) Anion Gap 6.0 mmol/L (3-11) Est Creatinine Clear Calc Drug Dose 55.0 ml/min Estimated GFR () 69.7 Estimated GFR (Non- 60.2 BUN/Creatinine Ratio 18.4 (10-20) Calcium Level 9.1 mg/dl (8.5-10.1) Total Bilirubin 0.4 mg/dl (0.2-1) Aspartate Amino Transf (AST/SGOT) 41 U/L (15-37) Alanine Aminotransferase (ALT/SGPT) 45 U/L (12-78) Alkaline Phosphatase 143 U/L (45-117) Total Protein 7.7 gm/dl (6.4-8.2) Albumin 3.7 gm/dl (3.4-5.0) Globulin 4.0 gm/dl (2.5-4.0) Albumin/Globulin Ratio 0.9 (0.9-2) Lipase 179 U/L (73-393) Medications Administered Medications (Trade) Dose Ordered Sig/Carin Route Start Time Stop Time Status Last Admin Dose Admin Sodium Chloride 1,000 ml @ 999 mls/hr Q1H1M STAT IV 06/23/17 23:02 06/24/17 00:02 DC 06/23/17 23:16 999 MLS/HR Metoclopramide HCl (Reglan Inj) 10 mg NOW STAT IV 06/23/17 23:02 06/23/17 23:03 DC 06/23/17 23:16 10 MG Ondansetron HCl (Zofran Inj) 4 mg NOW STAT IV 06/23/17 23:56 06/23/17 23:57 DC 06/24/17 00:02 4 MG ED Course The patient was evaluated as above. Labs were drawn and IV access was obtained. Patient was medicated with 1 L normal saline solution in 10 mg Reglan IV. On reevaluation, the patient was still feeling slightly nauseous. 4 mg Zofran IV was ordered. CT of the abdomen and pelvis was performed and read by kraigrad as above. Patient was reevaluated and stated that she was feeling much better. Findings were discussed with the patient. She is feeling ready for discharge. Discharge instructions were reviewed with the patient. The patient verbalized understanding of my assessment and treatment plan and was discharged home in good condition. Medical Decision Differential diagnosis includes small bowel obstruction, perforated bowel, colitis, gastroenteritis, GERD, diverticulitis, pancreatitis, among others. The patient is a 56-year-old female with past medical history of multiple abdominal surgeries and small bowel obstruction who presents today complaining of abdominal bloating and nausea. Labs revealed no leukocytosis, anemia or concerning electrolyte abnormalities. CT of the abdomen and pelvis with IV contrast was performed and fortunately does not show any evidence of bowel obstruction. There were findings suggestive of GERD which would correlate with the patient's presenting symptoms. She was informed of this and I advised her to start a PPI. I did advise her to keep a clear liquid diet for the next 48 hours and follow-up with her PCP for a recheck within 2 days. She will return here if she develops worsening abdominal pain, persistent vomiting or any other new/concerning symptoms. The patient's case was reviewed with Dr. Villatoro, ED attending physician, who agreed with my assessment and treatment plan. Based on the patient's presentation and work up, I feel the patient is stable for outpatient treatment. The patient was educated to return to the emergency department for any worsening of their current condition or new/concerning symptoms. She will follow up with her PCP. Medication Reconcilliation Current Medication List: was personally reviewed by me Blood Pressure Screening Patient's blood pressure: Normal blood pressure Impression Primary Impression: Abdominal bloating Departure Information Dispostion Home / Self-Care Condition GOOD Prescriptions Pantoprazole (Protonix) 40 Mg Tab 40 MG PO DAILY for 14 Days, #14 TAB Prov: Natalia Barnhart ., PAULINA 06/24/17 Ondasetron Odt (ZOFRAN ODT) 4 Mg Tab 4 MG SL Q6H for Nausea, #15 TAB Prov: Natalia Barnhart ., SOFY-Nae 06/24/17 Referrals Dimitry Chang III, CRNP (PCP) Patient Instructions My [facility] Additional Instructions You have been treated in the Emergency Department for your Abdominal Pain. Laboratory results and imaging studies have ruled out any emergent causes for your abdominal pain which would warrant admission or surgery. Start the Protonix as prescribed. Take this medication in the morning before eating anything. This is for acid reflux. You have been prescribed Zofran to be used for any nausea or vomiting. Take as prescribed. For pain control, you can use the following [id number] medicines (if >12 yo): - Regular strength (325mg/tab) Tylenol (acetaminophen) 2 tabs every 4-6 hours as needed. Do not exceed 12 tablets in a 24 hour period. Avoid taking more than 4 grams (4000 mg) of Tylenol per day. This includes any other sources of acetaminophen you may take on a regular basis. Keep a clear liquid diet for the next 48 hours. Contact her primary care provider tomorrow to schedule an appointment within 1- 2 days. Return to the emergency department if your symptoms persist despite treatment plan outlined above or if the following symptoms occur: Worsening pain, fevers, increased vomiting, weakness or any other new/concerning symptoms.
[2017-06-24 01:12] VITALS: BP 103/64; PULSE 75; O2SAT 94
--- NOTE | 2017-06-24 07:09 | DIAGNOSTIC IMAGING REPORT ---
CT OF THE ABDOMEN AND PELVIS WITH CONTRAST CLINICAL HISTORY: Abdominal pain and belching. History of small bowel obstruction. COMPARISON STUDY: CT of the abdomen and pelvis April 30, 2016. TECHNIQUE: Following IV administration of 93 mL of [id number]-[id number], axial images of the abdomen and pelvis were obtained from the lung bases to the proximal femurs. Images were reviewed in the axial, sagittal, and coronal planes. IV contrast was administered without complication. A dose lowering technique was utilized adhering to the principles of ALARA. CT DOSE: 429.70 mGy.cm FINDINGS: Innumerable hepatic cysts are noted. A partial right hepatic lobe resection is noted. The patient is status post gastric bypass. There is no evidence for a bowel obstruction. The distal esophagus is mildly dilated and fluid-filled. A dilated loop of small bowel within the lower abdomen is at the anastomosis and does not indicate a small bowel obstruction. A loop of small bowel is noted within the umbilical hernia. There is no upstream dilatation to suggest a resultant bowel obstruction. No pneumatosis, free air or portal venous gas is present. There are multiple renal cysts. Multiple hypodense subcentimeter renal lesions are too small character as but likely reflect cysts as well. There is no biliary or pancreatic ductal dilatation. Major vasculature is patent. No suspicious osseous lesions are present. There is no ascites. IMPRESSION: 1. Status post Patti-en-Y gastric bypass. No evidence for a bowel obstruction. Moderate amount of ingested material within the stomach. 2. Umbilical hernia which contains a loop of small bowel. No resultant bowel obstruction. 3. Innumerable hepatic cysts. Multiple renal cysts. 4. Fluid-filled mildly dilated distal esophagus which may reflect gastroesophageal reflux. Electronically signed by: Jerad Montalvo M.D. 06/24/2017 7:06 AM Dictated Date/Time: 06/24/2017 6:54 AM
== END 2017-06-24 01:14 | disposition home or self-care (01) ==
LOC: C.EDB 22:25
DX: R14.0 Abdominal distension (gaseous) (principal); R14.2 Eructation; R11.10 Vomiting, unspecified; R10.10 Upper abdominal pain, unspecified; I48.91 Unspecified atrial fibrillation; F32.9 Major depressive disorder, single episode, unspecified; E11.9 Type 2 diabetes mellitus without complications; I10 Essential (primary) hypertension; E78.5 Hyperlipidemia, unspecified; Z98.84 Bariatric surgery status; Z90.49 Acquired absence of other specified parts of digestive tract; Z79.84 Long term (current) use of oral hypoglycemic drugs; Z79.899 Other long term (current) drug therapy

== ENCOUNTER → 2017-09-18 | Outpatient (CLI) | payer OTHER ==
[~2017-09-18] MED LIST changes: -CALC-358 PO; +CITA20TA9 PO; -ERGO500037 PO; +FESO8TAB PO; +ONDA4TAB10 SL; -PEDICHW44 PO; -POLY335019 PO
== END | disposition home or self-care (01) ==
LOC: C.LABBC 14:57
PROVIDERS: ATTEND Family Medicine
DX: R35.0 Frequency of micturition (principal)

== ENCOUNTER 2022-12-18 20:48 | Inpatient (IN) ==
[2022-12-18] MEDS ORDERED: ONDANSETRON INJ 2 MG/ML 2 ML VIAL IV STA (21:06)
[2022-12-18 22:06] LABS: Basophils # (auto) 0.03 K/uL (0.00-0.20); Basophils % (auto) 0.6 %; Eosinophils # (auto) 0.38 K/uL (0.00-0.50); Eosinophils % (auto) 7.7 %; Hematocrit (blood only) 36.2 % (37.0-47.0); Hemoglobin 12.3 g/dl (12.0-16.0); Immature Granulocytes # (auto) 0.01 K/uL (0.01-0.20); Immature Granulocytes % (auto) 0.2 %; Lymphocytes # (auto) 1.98 K/uL (1.20-3.40); Lymphocytes % (auto) 40.2 %; Mean Corpuscular Hemoglobin 30.9 pg (25.0-34.0); Monocytes # (auto) 0.46 K/uL (0.11-0.59); Monocytes % (auto) 9.3 %; Neutrophils # (auto) 2.06 K/uL (1.40-6.50); Platelet Count 202 K/uL (130-400); RDW Coefficient of Variation 13.1 % (11.5-14.5); RDW Standard Deviation 43.8 fL (36.4-46.3); Red Blood Count 3.98 M/uL (4.20-5.40); White Blood Count 4.92 K/ul (4.8-10.8)
[2022-12-18 22:20] LABS: Albumin Globulin Ratio 1.6 (0.9-2); Albumin Level 4.4 gm/dl (3.4-5.0); BUN Creatinine Ratio 17.8 (10-20); Bilirubin,Total 0.6 mg/dl (0.2-1.0); Calcium 9.6 mg/dl (8.6-10.3); Creatinine Clr Calc Pharmacy 65.6 ml/min; Est GFR (African American) 104.5 ml/min; Est GFR (Non-African American) 90.1 ml/min; Globulin 2.7 gm/dl (2.5-4.0); Potassium 4.4 mmol/L (3.5-5.1); Total Protein 7.1 gm/dl (6.0-8.3)
[2022-12-18 22:33] LABS: Appearance Urine Clear (Clear); Bilirubin Urine Negative (Negative); Blood Urine Negative (Negative); Color Urine Yellow; Glucose Urine UA Negative (Negative); Ketones Urine Negative (Negative); Leukocyte Esterase Urine Negative (Negative); Nitrite Urine Negative (Negative); Protein Urine Negative (Negative); Specific Gravity Urine 1.006 (1.000-1.030); Urobilinogen Urine Negative (Negative); pH Urine 7.5 (4.5-7.5)
[2022-12-18] MEDS ORDERED: OPTIRAY 320 100ml IV ONE (22:45)
--- NOTE | 2022-12-18 23:53 | Emergency Department Note ---
Impression & Plan SBO (small bowel obstruction), Ventral hernia ED Provider Note CHIEF COMPLAINT: Abdominal pain HISTORY OF PRESENTING ILLNESS: This 61-year-old female patient presents to the emergency department for evaluation of abdominal pain, belching, and bloating. Also having nausea, but no vomiting. Symptoms started 2 hours ago right after eating dinner. She wasn't able to lay down because of the pain. She has a history of bowel obstructions and hernias. She is scheduled for hernia repair in January. It seemed like maybe one of her hernias looked different when she had the pain per patient. She rates her discomfort as 8/10. However, since being brought back to her exam room she has felt better. She feels like the burping a lot is helping to relieve her bloating and some of the pain. Feels like her colon is moving again and she thinks this may be helping. She normally has a BM every day, but no BM today. Denies any urinary symptoms. Denies chest pain or SOB. No fevers. She does not take any medication for acid reflux. REVIEW OF SYSTEMS: See HPI for pertinent positives and pertinent negatives. ALLERGIES: Pollen extracts, pravastatin, atorvastatin, dust MEDICATIONS: See below PAST MEDICAL HISTORY: See below PHYSICAL EXAM: VITALS: Vitals are noted on the nurse's note and reviewed by myself. GENERAL: Non toxic, no acute distress, non-diaphoretic. SKIN: Capillary refill <2 sec. EYES: PERRLA. EOMI. Conjunctivae without injection, sclerae without icterus. NOSE: Patent without discharge. MOUTH: Mucous membranes moist. Uvula midline. Airway patent. NECK: Supple without nuchal rigidity. HEART: Regular rate and rhythm without murmurs gallops or rubs. LUNGS: Clear to auscultation bilaterally without wheezes, rales or rhonchi. No retractions or accessory muscle use. ABDOMEN: Positive bowel sounds x 4. Normal tympanic percussion. Soft, nontender to palpation at the time of my exam. The patient has multiple abdominal wall hernias around the umbilicus and her incision site centrally. The hernias are easily reducible at the time of my exam, are nontender to palpation, and there is no evidence for incarceration or strangulation at the time of my exam. No other masses or organomegaly. Clarke sign negative. No guarding or rebound tenderness. No focal RLQ or LLQ tenderness. MUSCULOSKELETAL: No gross musculoskeletal defects. NEURO: Patient was alert and oriented. No focal neurological deficits. DIFFERENTIAL DIAGNOSIS: Differential diagnosis includes hepatitis, pancreatitis, cholecystitis, cholelithiasis, appendicitis, kidney stone, pyelonephritis, UTI, gastritis, gastroenteritis, mesenteric adenitis, obstruction, constipation, hernia, abdominal abscess, perforation, diverticulitis, IBD, ischemic colitis, abdominal aortic aneurysm, , ectopic , ovarian cyst, ovarian torsion, acute salpingitis, or others. ED COURSE AND MEDICAL DECISION MAKING: MEDICATIONS GIVEN: 1 L normal saline solution bolus. Zofran 4 mg IV, Pepcid 20 mg IV, Protonix 40 mg IV. INTERPRETATION OF LABS: I interpreted the labs with full lab results as below in the lab section of this note. CBC without leukocytosis, anemia, or thrombocytopenia. Sodium 132, alk phos 107, and glucose 119, but CMP otherwise normal. Lipase was normal. Urinalysis was negative. INTERPRETATION OF IMAGING: Imaging studies were interpreted by myself and read by radiology as per the imaging section of this note. CT scan of the abdomen pelvis with IV contrast showed extensive hepatic cystic lesions which are known to the patient. It also showed a ventral abdominal wall hernia with incarcerated small bowel contributing to a low-grade small bowel obstruction which may be manually reducible. Moderate fecal retention throughout the colon consistent with constipation. Patti-en-Y gastric bypass with no obstruction at the jejunojejunostomy which is patulous up to 7.4 cm. CONSULTATIONS: Dr. Rodas of surgery. On-call hospitalist. MDM SUMMARY: Due to abnormally long wait times in the emergency department, the patient already had her CT scan done and her work-up completed at the time of my evaluation. Once the patient was taken back to an exam room, I evaluated the patient and her pain had significantly improved. She still had mild burping, but that had improved a lot as well. On exam the patient's abdomen was nontender to palpation. Her hernias were nontender and easily reducible without evidence for strangulation or incarceration. The incarcerated hernia most likely reduced on its own prior to my evaluation. An IV lock was placed and labs were drawn. The patient was medicated as above with resolution of her burping. She did not require any medication for pain while in the emergency department. The patient felt much improved and wanted to be discharged home. I had a meaningful discussion about this patient with Dr. Dillard who agrees with my assessment and the treatment plan. I spoke with Dr. Rodas of general surgery who stated that if the patient was able to tolerate p.o. intake and pass gas without problems and remained asymptomatic, she could be discharged home. We did an oral trial, but the patient's burping and bloating returned. Therefore, it was felt the patient would need to be admitted for further management of the small bowel obstruction. The patient will require eventual hernia repair as well and she is currently scheduled for January. I spoke with the on-call hospitalist who agreed to admit the patient for further management. Please refer to their dictation for further details. The patient's care was transferred in stable condition. DIAGNOSIS: Small bowel obstruction Incarcerated ventral abdominal wall hernia that self reduced Past Med/Surg History Medical History Afib DM2 (diabetes mellitus, type 2) "Diet controlled " HTN (hypertension) Hypercholesterolemia Polycystic liver disease SBO (small bowel obstruction) Urinary symptom or sign Surgical History H/O esophagogastroduodenoscopy H/O gastric bypass H/O tubal ligation History of resection of liver Previous section S/P colonoscopy S/P hernia repair Family History Father Myocardial infarction Grandfather Prostate cancer Denies family history of Colon cancer Ovarian cancer Breast cancer Social History Smoking Status: Never smoker Hx Alcohol Use: No Hx Substance Use: No Preferred Language: Martiniquais Communication Ability: Effective Foxer Required: No Beliefs That Will Affect Care: None marital status: Current Living Situation: Spouse current occupational status: unemployed Other Information That Helps Us Care for You: No Feels Safe at Home: Yes Safety Concerns: Feels Safe At This Time Diet: other Diet Comment: extra protein for gastric bypass Dental Care, Regularly: Yes Seatbelt Use: always Do you think of yourself as: straight/heterosexual Allergies Allergies Allergy/AdvReac Type Severity Reaction Status Date / Time pollen extracts Allergy Intermediate SHORTNESS Verified 12/18/22 23:26 OF BREATH pravastatin Allergy Mild FEVER Verified 12/18/22 23:26 atorvastatin AdvReac Mild MUSCLE Verified 12/18/22 23:26 ACHES Dust Allergy Intermediate SHORTNESS Uncoded 12/18/22 23:26 OF BREATH Home Meds Home Medications Medication Instructions Recorded Confirmed buspirone 5 mg tablet 5 mg PO AMHS 05/03/22 12/18/22 cyanocobalamin (vitamin B-12) 500 500 mcg PO HS 05/03/22 12/18/22 mcg lozenges escitalopram oxalate 20 mg tablet 20 mg PO QAM 05/03/22 12/18/22 ferrous sulfate 325 mg (65 mg 325 mg PO AMPM 05/03/22 12/18/22 iron) tablet (iron) levocetirizine 5 mg tablet 5 mg PO HS 05/03/22 12/18/22 pediatric multivitamin 1 tab PO BID 05/03/22 12/18/22 no.203-ferrous sulfate 18 mg chewable tablet (Flintstones with Iron) polyethylene glycol 3350 17 17 g PO DAILY PRN Constipation 05/03/22 12/18/22 gram/dose oral powder (Miralax) calcium cit 250 mg-ergocalciferol 1 tab PO BID 07/31/22 12/18/22 (vit D2) 2.5 mcg (100 unit) tablet metoprolol succinate 50 mg 50 mg PO QAM 12/18/22 12/18/22 tablet,extended release 24 hr Previous Rx's Medication Instructions Recorded fesoterodine 8 mg tablet,extended 8 mg PO DAILY #90 tabs 06/06/22 release 24 hr (Toviaz) Results & Data (ED) Vital Signs Vital Signs - 24 hr 12/18/22 21:04 12/18/22 22:34 12/19/22 00:11 Temperature 36.5 C Temperature Source Temporal Artery Scan Pulse Rate 70 Pulse Rate [Right Finger] 64 64 Respiratory Rate 18 18 16 Respiratory Effort / Characteristics Non-Labored Respiratory Depth Normal Normal Blood Pressure 148/86 H Blood Pressure [Right Arm] 126/84 104/73 Blood Pressure Mean 106 Blood Pressure Mean [Right Arm] 98 83 Pulse Oximetry 97 94 93 Oxygen Delivery Method Room Air Room Air Room Air Sepsis Recent Fever Within 48 Hours No Sepsis New/Unexplained Change in Mental Status N/A Sepsis Action Taken by Nursing No Action Required 12/19/22 02:03 Temperature Temperature Source Pulse Rate Pulse Rate [Right Finger] 66 Respiratory Rate 16 Respiratory Effort / Characteristics Respiratory Depth Blood Pressure Blood Pressure [Right Arm] 104/73 Blood Pressure Mean Blood Pressure Mean [Right Arm] 83 Pulse Oximetry 96 Oxygen Delivery Method Room Air Sepsis Recent Fever Within 48 Hours Sepsis New/Unexplained Change in Mental Status Sepsis Action Taken by Nursing Laboratory Data 12/19/22 03:59 12/18/22 21:44 Lab Results 12/18/22 12/18/22 Range/Units 21:40 21:44 WBC 4.92 (4.8-10.8) K/ul RBC 3.98 L (4.20-5.40) M/uL Hgb 12.3 (12.0-16.0) g/dl Hct 36.2 L (37.0-47.0) % MCV 91.0 (80.0-100.0) fL MCH 30.9 (25.0-34.0) pg MCHC 34.0 (32.0-36.0) g/dL RDW Std Deviation 43.8 (36.4-46.3) fL RDW Coeff of Stef 13.1 (11.5-14.5) % Plt Count 202 (130-400) K/uL MPV 11.0 (9.4-12.4) fL Immature Gran % (Auto) 0.2 % Neut % (Auto) 42.0 % Lymph % (Auto) 40.2 % [place] % (Auto) 9.3 % Eos % (Auto) 7.7 % Baso % (Auto) 0.6 % Neut # (Auto) 2.06 (1.40-6.50) K/uL Lymph # (Auto) 1.98 (1.20-3.40) K/uL [place] # (Auto) 0.46 (0.11-0.59) K/uL Eos # (Auto) 0.38 (0.00-0.50) K/uL Baso # (Auto) 0.03 (0.00-0.20) K/uL Immature Gran # (Auto) 0.01 (0.01-0.20) K/uL Sodium 132 L (136-145) mmol/L Potassium 4.4 (3.5-5.1) mmol/L Chloride 96 L (98-107) mmol/L Carbon Dioxide 30 (21-32) mmol/L Anion Gap 6 (3-11) BUN 13 (6-23) mg/dl Creatinine 0.73 (0.6-1.2) mg/dl Est Cr Clr Drug Dosing 65.6 ml/min Est GFR ( Amer) 104.5 ml/min Est GFR (Non-Af Amer) 90.1 ml/min BUN/Creatinine Ratio 17.8 (10-20) Glucose 119 H (70-99(Fasting)) mg/dl Calcium 9.6 (8.6-10.3) mg/dl Total Bilirubin 0.6 (0.2-1.0) mg/dl AST 37 (13-39) U/L ALT 42 (7-52) U/L Alkaline Phosphatase 107 H (34-104) U/L Total Protein 7.1 (6.0-8.3) gm/dl Albumin 4.4 (3.4-5.0) gm/dl Globulin 2.7 (2.5-4.0) gm/dl Albumin/Globulin Ratio 1.6 (0.9-2) Lipase 22 (11-82) U/L Urine Color Yellow Urine Appearance Clear (Clear) Urine pH 7.5 (4.5-7.5) Ur Specific [place] 1.006 (1.000-1.030) Urine Protein Negative (Negative) Urine Glucose (UA) Negative (Negative) Urine Ketones Negative (Negative) Urine Blood Negative (Negative) Urine Nitrite Negative (Negative) Urine Bilirubin Negative (Negative) Urine Urobilinogen Negative (Negative) Ur Leukocyte Esterase Negative (Negative) Administered Medications Buspirone HCl (Buspirone 5 Mg Tab) 5 mg PO [facility] Stop: 01/18/23 09:59 Last Admin: 12/19/22 10:39 Dose: 5 mg Documented By: J LUIS Enoxaparin Sodium (Enoxaparin Inj 40 Mg/0.4 Ml Syr) [facility] Stop: 01/18/23 09:59 Last Admin: 12/19/22 10:40 Dose: Not Given Documented By: J LUIS Escitalopram Oxalate (Escitalopram Oxalate 20 Mg Tab) [facility] [place] Stop: 01/18/23 09:59 Last Admin: 12/19/22 10:39 Dose: 20 mg Documented By: J LUIS Ferrous Sulfate (Ferrous Sulfate 325 Mg Tab) 325 mg PO Q48H PATRICIA Stop: 01/18/23 09:59 Last Admin: 12/19/22 10:39 Dose: 325 mg Documented By: J LUIS Insulin Aspart (Insulin Aspart Per Unit Charge) 0 units SC ACHS PATRICIA Stop: 01/18/23 07:29 Last Admin: 12/19/22 13:58 Dose: 3 units Documented By: J LUIS Co-signed By: JAIDEN Admin: 12/19/22 09:41 Dose: Not Given Documented By: J LUIS Co-signed By: RICK Metoprolol Succinate (Metoprolol Succ 25mg Ext Rel Tab) 25 mg PO QAM PATRICIA Stop: 01/18/23 09:59 Last Admin: 12/19/22 10:39 Dose: 25 mg Documented By: J LUIS Multivitamins/Folic Acid/Vitamin C (Multivitamin Chewable Tab) 1 tab PO BID PATRICIA Stop: 01/18/23 09:59 Last Admin: 12/19/22 10:39 Dose: 1 tab Documented By: J LUIS Oxybutynin Chloride (Oxybutynin Chloride Xl 5 Mg Tabcr) 5 mg PO DAILY PATRICIA Stop: 01/18/23 09:59 Last Admin: 12/19/22 10:39 Dose: 5 mg Documented By: J LUIS Discontinued Medications Bisacodyl (Bisacodyl 10 Mg Supp) 10 mg WA NOW STA Stop: 12/19/22 03:47 Last Admin: 12/19/22 04:44 Dose: 10 mg Documented By: MARYCRUZ Sodium Chloride (Nss) 1,000 mls @ 999 mls/hr IV .Q1H1M ONE Stop: 12/19/22 00:59 Last Infusion: 12/19/22 02:04 Dose: Infused Documented By: Admin: 12/19/22 00:10 Dose: 999 mls/hr Documented By: MARYCRUZ Famotidine (Pepcid 20mg Iv Push) 20 mg in 5 mls @ 2.5 mls/min IV NOW STA Stop: 12/19/22 00:00 Last Admin: 12/19/22 00:10 Dose: 2.5 mls/min Documented By: MARYCRUZ Pantoprazole Sodium 40 mg/ (Syringe) 10 mls @ 5 mls/min IV NOW ONE Stop: 12/19/22 00:00 Last Admin: 12/19/22 00:12 Dose: 5 mls/min Documented By: MARYCRUZ Lactated Ringer's (Lr) 1,000 mls @ 100 mls/hr IV .Q10H ONE Stop: 12/19/22 13:12 Last Infusion: 12/19/22 13:15 Dose: Infused Documented By: J LUIS Admin: 12/19/22 04:44 Dose: 75 mls/hr Documented By: MARYCRUZ Ioversol (Optiray 320 100ml) 100 ml IV ONCE ONE Stop: 12/18/22 22:46 Last Admin: 12/18/22 22:45 Dose: 92 ml Documented By: FREDDIE Ondansetron HCl (Ondansetron Inj 2 Mg/Ml 2 Ml Vial) 4 mg IV NOW STA Stop: 12/18/22 21:07 Last Admin: 12/18/22 21:47 Dose: 4 mg Documented By: JEANINE Polyethylene Glycol (Polyethylene (Miralax) 17 Gm Pack) 17 gm PO NOW STA Stop: 12/19/22 10:29 Last Admin: 12/19/22 11:39 Dose: 17 gm Documented By: J LUIS Discharge Plan Visit Data Chief Complaint: Abdominal Pain Stated Complaint: ABD PAIN ED Provider: Timmy Dillard ED Midlevel Provider: Lin Everett Discharge Problem: SBO (small bowel obstruction), Ventral hernia Patient Disposition: Admitted As Inpatient Condition: Good Discharge Instructions Interventions: ED Discharge Assessment Last Done: 12/19/22 08:27 Discharge Problem: Ventral hernia Qualifiers: Obstruction and gangrene presence: without obstruction or gangrene Qualified Code(s): K43.9 - Ventral hernia without obstruction or gangrene
[2022-12-18] MEDS ORDERED: FAMOTIDINE 20MG IV PUSH 20 MG/5 ML SYR IV STA (23:59)
[2022-12-18] MEDS ORDERED: PANTOprazole 40 MG in SYRINGE 0 ML IV ONE (23:59)
[2022-12-18] MEDS ORDERED: SODIUM CHLORIDE 0.9% 1,000 ML IV ONE (23:59)
--- NOTE | 2022-12-19 00:17 | CT Scan Report ---
Exam(s): CT ABDOMEN + PELVIS With Contrast IV Amt: 92 ML OPTIRAY 320 EXAM: CT Abdomen and Pelvis With Intravenous Contrast CLINICAL HISTORY: Reason for exam: abd pain, hx sbo. TECHNIQUE: Axial computed tomography images of the abdomen and pelvis with intravenous contrast. CTDI is 14.14 mGy and DLP is 690.62 mGy-cm. Automated exposure control was utilized for the study. A dose lowering technique was utilized adhering to the principles of ALARA. CONTRAST: Patient received 92 ML OPTIRAY 320 of IV contrast COMPARISON: No relevant prior studies available. FINDINGS: Lung bases: Unremarkable. No mass. No consolidation. ABDOMEN: Liver: Extensive hepatic cystic lesions, correlate for polycystic liver disease. Gallbladder and bile ducts: Unremarkable. No calcified stones. No ductal dilation. Pancreas: Unremarkable. No mass. No ductal dilation. Spleen: Unremarkable. No splenomegaly. Adrenals: Unremarkable. No mass. Kidneys and ureters: Small bilateral renal cysts. No hydronephrosis or delayed nephrogram. Stomach and bowel: Ventral abdominal wall hernia with incarcerated small bowel contributing to low-grade small bowel obstruction. Moderate fecal retention throughout the colon, correlate for constipation. Patti- en-Y gastric bypass. No obstruction at the jejunojejunostomy, which is patulous measuring up to 7.4 cm. No mucosal thickening. PELVIS: Appendix: No findings to suggest acute appendicitis. Bladder: Unremarkable. No mass. Reproductive: Unremarkable as visualized. ABDOMEN and PELVIS: Intraperitoneal space: Unremarkable. No free air. No significant fluid collection. Bones/joints: Degenerative changes of the spine. No acute fracture. No dislocation. Soft tissues: See above. Vasculature: Atherosclerotic changes of the aorta. No abdominal aortic aneurysm. Lymph nodes: Unremarkable. No enlarged lymph nodes. IMPRESSION: 1. Extensive hepatic cystic lesions, correlate for polycystic liver disease. 2. Ventral abdominal wall hernia with incarcerated small bowel contributing to low-grade small bowel obstruction. This may be manually reducible. Surgical evaluation recommended. 3. Moderate fecal retention throughout the colon, correlate for constipation. 4. Patti-en-Y gastric bypass. No obstruction at the jejunojejunostomy, which is patulous measuring up to 7.4 cm. Electronically signed by: Shilo Munguia MD 12/19/22 00:16 AM
[2022-12-19] MEDS ORDERED: LACTATED RINGER'S 1,000 ML IV ONE (03:13)
[2022-12-19] MEDS ORDERED: bisacodyL 10 MG SUPP PR STA (03:46)
--- NOTE | 2022-12-19 03:46 | History & Physical Report ---
Date of Service December 19, 2022 Assessment & Plan (1) SBO (small bowel obstruction): Plan: Recurrent SBO History of bariatric surgery PAF, as per records hypertension, BP on the lower side hyperlipidemia/statin intolerance DM 2 diet-controlled, well-controlled as of recent hemoglobin A1c of 5.3 last month GERD, ELOISE on CPAP polycystic liver disease mood disorder, stable Medical telemetry given potential need for IV beta-jani use if patient symptoms progress to the point of requiring NGT decompression Bowel rest Analgesia, IVF General surgery consult Re: Recurrent SBO (ER provider already in touch with Dr. Rodas.) ISS BG goal 1 10-1 40 DVT prophylaxis with Lovenox subcu Full code Text document was generated using [employer] voice recognition software. It may contain grammatical or spelling errors. Kindly contact undersigned for clarification of any documentation item in question. History of Present Illness Chief Complaint: Abdominal pain Primary Care Provider: Marilynn Taylor, History obtained from patient and records. Medical history significant for PAF, hypertension, hyperlipidemia/statin intolerance, DM 2 diet-controlled, GERD, ELOISE on CPAP, history of gastric bypass, polycystic liver disease, migraine, mood disorder. Last confinement December 2015 for SBO resolved with conservative management. Patient evaluated outpatient by [facility] last August 2022 for incisional hernias. Open repair of incisional hernias contemplated, tentative schedule next month. Patient noted sudden onset achy abdominal pain, belching and bloating systems after dinner last night. Some nausea, no emesis, no fever, no chills. No chest pain, no SOB. No BM yesterday which is unusual for her. Patient consulted ER for evaluation. Abdominal discomfort on trial of liquid diet at the ER. 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 Allergies Allergy/AdvReac Type Severity Reaction Status Date / Time pollen extracts Allergy Intermediate SHORTNESS Verified 12/18/22 23:26 OF BREATH pravastatin Allergy Mild FEVER Verified 12/18/22 23:26 atorvastatin AdvReac Mild MUSCLE Verified 12/18/22 23:26 ACHES Dust Allergy Intermediate SHORTNESS Uncoded 12/18/22 23:26 OF BREATH Home Medications Medication Instructions Recorded Confirmed Type buspirone 5 mg tablet 5 mg PO AMHS 05/03/22 12/18/22 History cyanocobalamin (vitamin B-12) 500 500 mcg PO HS 05/03/22 12/18/22 History mcg lozenges escitalopram oxalate 20 mg tablet 20 mg PO QAM 05/03/22 12/18/22 History ferrous sulfate 325 mg (65 mg 325 mg PO AMPM 05/03/22 12/18/22 History iron) tablet (iron) levocetirizine 5 mg tablet 5 mg PO HS 05/03/22 12/18/22 History pediatric multivitamin 1 tab PO BID 05/03/22 12/18/22 History no.203-ferrous sulfate 18 mg chewable tablet (Flintstones with Iron) polyethylene glycol 3350 17 17 g PO DAILY PRN Constipation 05/03/22 12/18/22 History gram/dose oral powder (Miralax) fesoterodine 8 mg tablet,extended 8 mg PO DAILY #90 tabs 06/06/22 12/18/22 Rx release 24 hr (Toviaz) calcium cit 250 mg-ergocalciferol 1 tab PO BID 07/31/22 12/18/22 History (vit D2) 2.5 mcg (100 unit) tablet metoprolol succinate 50 mg 50 mg PO QAM 12/18/22 12/18/22 History tablet,extended release 24 hr Past Med/Surg History Medical History Afib DM2 (diabetes mellitus, type 2) "Diet controlled " HTN (hypertension) Hypercholesterolemia Polycystic liver disease SBO (small bowel obstruction) Urinary symptom or sign Surgical History H/O esophagogastroduodenoscopy H/O gastric bypass H/O tubal ligation History of resection of liver Previous section S/P colonoscopy S/P hernia repair Family History Father Myocardial infarction Grandfather Prostate cancer Denies family history of Colon cancer Ovarian cancer Breast cancer Social History (Reviewed 07/31/22 @ 04:14 by BENJAMIN Law Smoking Status: Never smoker Hx Alcohol Use: No Hx Substance Use: No Preferred Language: Azerbaijani marital status: Current Living Situation: Spouse current occupational status: unemployed Feels Safe at Home: Yes Diet: other Diet Comment: extra protein for gastric bypass Dental Care, Regularly: Yes Seatbelt Use: always Do you think of yourself as: straight/heterosexual Review of Systems Review of Systems: As per HPI, all other systems reviewed and negative Physical Exam Physical Exam: GENERAL: Comfortable, pleasant, no respiratory distress SKIN: Normal color, warm HEENT: Bespectacled Steen palpebral conjunctivae, no ptosis, dry buccal mucosa NECK : Supple, no tenderness CHEST : CTA, no tenderness HEART : RRR, no obvious murmurs ABDOMEN: Some distention, central abdominal tenderness EXTREMITIES : No LE swelling/tenderness, no other conspicuous deformities noted NEUROLOGIC : Coherent, no facial asymmetry, no other gross focality Results & Data Results & Data Vital Signs (Past 12 Hours) Vital Signs Temp Pulse Pulse Resp BP BP Pulse Ox 12/19/22 02:03 66 16 104/73 96 12/19/22 00:11 64 16 104/73 93 12/18/22 22:34 64 18 126/84 94 12/18/22 21:04 36.5 C 70 18 148/86 H 97 O2 Del Method 12/19/22 02:03 Room Air 12/19/22 00:11 Room Air 12/18/22 22:34 Room Air 12/18/22 21:04 Room Air Laboratory Results Laboratory Results WBC 4.92 K/ul (4.8-10.8) 12/18/22 21:44 RBC 3.98 M/uL (4.20-5.40) L 12/18/22 21:44 Hgb 12.3 g/dl (12.0-16.0) 12/18/22 21:44 Hct 36.2 % (37.0-47.0) L 12/18/22 21:44 MCV 91.0 fL (80.0-100.0) 12/18/22 21:44 MCH 30.9 pg (25.0-34.0) 12/18/22 21:44 MCHC 34.0 g/dL (32.0-36.0) 12/18/22 21:44 RDW Std Deviation 43.8 fL (36.4-46.3) 12/18/22 21:44 RDW Coeff of Stef 13.1 % (11.5-14.5) 12/18/22 21:44 Plt Count 202 K/uL (130-400) 12/18/22 21:44 MPV 11.0 fL (9.4-12.4) 12/18/22 21:44 Immature Gran % (Auto) 0.2 % 12/18/22 21:44 Neut % (Auto) 42.0 % 12/18/22 21:44 Lymph % (Auto) 40.2 % 12/18/22 21:44 [place] % (Auto) 9.3 % 12/18/22 21:44 Eos % (Auto) 7.7 % 12/18/22 21:44 Baso % (Auto) 0.6 % 12/18/22 21:44 Neut # (Auto) 2.06 K/uL (1.40-6.50) 12/18/22 21:44 Lymph # (Auto) 1.98 K/uL (1.20-3.40) 12/18/22 21:44 [place] # (Auto) 0.46 K/uL (0.11-0.59) 12/18/22 21:44 Eos # (Auto) 0.38 K/uL (0.00-0.50) 12/18/22 21:44 Baso # (Auto) 0.03 K/uL (0.00-0.20) 12/18/22 21:44 Immature Gran # (Auto) 0.01 K/uL (0.01-0.20) 12/18/22 21:44 Sodium 132 mmol/L (136-145) L 12/18/22 21:44 Potassium 4.4 mmol/L (3.5-5.1) 12/18/22 21:44 Chloride 96 mmol/L (98-107) L 12/18/22 21:44 Carbon Dioxide 30 mmol/L (21-32) 12/18/22 21:44 Anion Gap 6 (3-11) 12/18/22 21:44 BUN 13 mg/dl (6-23) 12/18/22 21:44 Creatinine 0.73 mg/dl (0.6-1.2) 12/18/22 21:44 Est Cr Clr Drug Dosing 65.6 ml/min 12/18/22 21:44 Est GFR ( Amer) 104.5 ml/min 12/18/22 21:44 Est GFR (Non-Af Amer) 90.1 ml/min 12/18/22 21:44 BUN/Creatinine Ratio 17.8 (10-20) 12/18/22 21:44 Glucose 119 mg/dl (70-99(Fasting)) H 12/18/22 21:44 Calcium 9.6 mg/dl (8.6-10.3) 12/18/22 21:44 Total Bilirubin 0.6 mg/dl (0.2-1.0) 12/18/22 21:44 AST 37 U/L (13-39) 12/18/22 21:44 ALT 42 U/L (7-52) 12/18/22 21:44 Alkaline Phosphatase 107 U/L (34-104) H 12/18/22 21:44 Total Protein 7.1 gm/dl (6.0-8.3) 12/18/22 21:44 Albumin 4.4 gm/dl (3.4-5.0) 12/18/22 21:44 Globulin 2.7 gm/dl (2.5-4.0) 12/18/22 21:44 Albumin/Globulin Ratio 1.6 (0.9-2) 12/18/22 21:44 Lipase 22 U/L (11-82) 12/18/22 21:44 Urine Color Yellow 12/18/22 21:40 Urine Appearance Clear (Clear) 12/18/22 21:40 Urine pH 7.5 (4.5-7.5) 12/18/22 21:40 Ur Specific [place] 1.006 (1.000-1.030) 12/18/22 21:40 Urine Protein Negative (Negative) 12/18/22 21:40 Urine Glucose (UA) Negative (Negative) 12/18/22 21:40 Urine Ketones Negative (Negative) 12/18/22 21:40 Urine Blood Negative (Negative) 12/18/22 21:40 Urine Nitrite Negative (Negative) 12/18/22 21:40 Urine Bilirubin Negative (Negative) 12/18/22 21:40 Urine Urobilinogen Negative (Negative) 11/07/23 21:40 Ur Leukocyte Esterase Negative (Negative) 12/18/22 21:40 Impressions Abdomen/Pelvis CT 12/18/22 21:09 Exam(s): CT ABDOMEN + PELVIS With Contrast IV Amt: 92 ML OPTIRAY 320 EXAM: CT Abdomen and Pelvis With Intravenous Contrast CLINICAL HISTORY: Reason for exam: abd pain, hx sbo. TECHNIQUE: Axial computed tomography images of the abdomen and pelvis with intravenous contrast. CTDI is 14.14 mGy and DLP is 690.62 mGy-cm. Automated exposure control was utilized for the study. A dose lowering technique was utilized adhering to the principles of ALARA. CONTRAST: Patient received 92 ML OPTIRAY 320 of IV contrast COMPARISON: No relevant prior studies available. FINDINGS: Lung bases: Unremarkable. No mass. No consolidation. ABDOMEN: Liver: Extensive hepatic cystic lesions, correlate for polycystic liver disease. Gallbladder and bile ducts: Unremarkable. No calcified stones. No ductal dilation. Pancreas: Unremarkable. No mass. No ductal dilation. Spleen: Unremarkable. No splenomegaly. Adrenals: Unremarkable. No mass. Kidneys and ureters: Small bilateral renal cysts. No hydronephrosis or delayed nephrogram. Stomach and bowel: Ventral abdominal wall hernia with incarcerated small bowel contributing to low-grade small bowel obstruction. Moderate fecal retention throughout the colon, correlate for constipation. Patti- en-Y gastric bypass. No obstruction at the jejunojejunostomy, which is patulous measuring up to 7.4 cm. No mucosal thickening. PELVIS: Appendix: No findings to suggest acute appendicitis. Bladder: Unremarkable. No mass. Reproductive: Unremarkable as visualized. ABDOMEN and PELVIS: Intraperitoneal space: Unremarkable. No free air. No significant fluid collection. Bones/joints: Degenerative changes of the spine. No acute fracture. No dislocation. Soft tissues: See above. Vasculature: Atherosclerotic changes of the aorta. No abdominal aortic aneurysm. Lymph nodes: Unremarkable. No enlarged lymph nodes. IMPRESSION: 1. Extensive hepatic cystic lesions, correlate for polycystic liver disease. 2. Ventral abdominal wall hernia with incarcerated small bowel contributing to low-grade small bowel obstruction. This may be manually reducible. Surgical evaluation recommended. 3. Moderate fecal retention throughout the colon, correlate for constipation. 4. Patti-en-Y gastric bypass. No obstruction at the jejunojejunostomy, which is patulous measuring up to 7.4 cm. Electronically signed by: Shilo Munguia MD 12/19/22 00:16 AM
[2022-12-19] MEDS ORDERED: CARBOHYDRATES FOR HYPOGLYCEMIA PO PRN (03:50)
[2022-12-19] MEDS ORDERED: KETOROLAC TROMETHAMINE 15 MG/ML VIAL IV PRN (03:50)
[2022-12-19] MEDS ORDERED: DEXTROSE 50% 50 ML SYRINGE IV PRN (03:50)
[2022-12-19] MEDS ORDERED: LORazepam 0.5 MG TAB PO PRN (03:50)
[2022-12-19] MEDS ORDERED: PROMETHAZINE HCL 6.25 MG in SODIUM CHLORIDE 0.9% 50 ML IV PRN (03:50)
[2022-12-19] MEDS ORDERED: GLUCOSE 40% GEL 15 GM TUBE PO PRN (03:50)
[2022-12-19] MEDS ORDERED: GLUCAGON FOR INJ 1 MG VIAL SQ PRN (03:50)
[2022-12-19] MEDS ORDERED: GLUCOSE 10 TAB/TUBE PO PRN (03:50)
[2022-12-19 04:27] LABS: Basophils # (auto) 0.02 K/uL (0.00-0.20); Basophils % (auto) 0.4 %; Eosinophils # (auto) 0.33 K/uL (0.00-0.50); Eosinophils % (auto) 7.1 %; Hematocrit (blood only) 35.1 % (37.0-47.0); Immature Granulocytes # (auto) 0.01 K/uL (0.01-0.20); Immature Granulocytes % (auto) 0.2 %; Lymphocytes # (auto) 1.91 K/uL (1.20-3.40); Lymphocytes % (auto) 40.9 %; Mean Corpuscular Hemoglobin 31.3 pg (25.0-34.0); Mean Corpuscular Hgb Conc 34.2 g/dL (32.0-36.0); Mean Corpuscular Volume 91.4 fL (80.0-100.0); Mean Platelet Volume 10.8 fL (9.4-12.4); Monocytes # (auto) 0.47 K/uL (0.11-0.59); Monocytes % (auto) 10.1 %; Neutrophils # (auto) 1.93 K/uL (1.40-6.50); Neutrophils % (auto) 41.3 %; Platelet Count 187 K/uL (130-400); RDW Coefficient of Variation 13.3 % (11.5-14.5); Red Blood Count 3.84 M/uL (4.20-5.40); White Blood Count 4.67 K/ul (4.8-10.8)
[2022-12-19] MEDS ORDERED: POLYETHYLENE (MIRALAX) 17 GM PACK PO PRN (09:29)
[2022-12-19] MEDS ORDERED: ACETAMINOPHEN 325 MG TAB PO PRN (09:29)
[2022-12-19] MEDS: INSULIN ASPART PER UNIT CHARGE SC SCH ×4 (09:41→21:11)
[2022-12-19] MEDS ORDERED: FERROUS SULFATE 325 MG TAB PO SCH (10:00)
[2022-12-19] MEDS ORDERED: POLYETHYLENE (MIRALAX) 17 GM PACK PO STA (10:28)
--- NOTE | 2022-12-19 10:29 | Surgery Consultation ---
<Statement entered by Mk Rodas MD - 12/19/22 15:06> Patient seen and examined. Reducible incisional hernia. Planned outpatient repair. Will sign off. Date of Consultation December 19, 2022 Assessment & Plan (1) SBO (small bowel obstruction): (2) Ventral hernia: Plan 61 year-old female with mulitple abdominal surgeries including mariah -en-y bypass, SBO with bowel resection, liver resection who is scheduled for elective ventral hernia repair x [address] Webster in january presented to emergency room with less than 1 day history of abdominal pain and nausea. CT scan with hernia containing small bowel with signs of SBO. She is currently feeling much better, pain resolved, and passed some gas. On examination she has moderate sized ventral hernia x 2 that are completely reducible and good bowel sounds. Plan: No acute surgical intervention recommended as she already has this scheduled with Dr. Webster. Okay to advance to clears and see how she tolerates encouraged ambulation Miralax for fecal retention, needs bowel regimen to avoid constipation/straining abdominal binder Educated patient on reducing hernia at home if becomes incarcerated needs to come back to emergency room Discussed with Dr. Rodas who agrees with above. History of Present Illness Reason for Consultation: Hernia with SBO Requesting Physician: Dr. Fabiola MD Attending Physician: Chad Hidalgo MD History of Present Illness Crista is a 61 year-old female with history of DM2, afib, depression, ELOISE on CPAP, abdominal wall hernia and multiple abdominal surgeries who presented to ED with complaint of abdominal pain and nausea that started last evening after dinner. She felt the hernias seemed to be harder in nature and came to emergency room. She states she has surgery scheduled with Dr. Webster in January for hernia repair x 2. History of gastric bypass, intra-abdominal abscess, SBO requiring surgery. She also has history of multiple cysts on her liver and liver resection in [place]. She states she is currently feeling much better, pain has resolved and passed some gas after suppository this am. No fever, chills, vomiting. Having some belching. ER work-up included CT scan of abdomen and pelvis which showed ventral hernia containing small bowel with SBO. SHe has no leukocytosis. Allergies Allergy/AdvReac Type Severity Reaction Status Date / Time pollen extracts Allergy Intermediate SHORTNESS Verified 12/18/22 23:26 OF BREATH pravastatin Allergy Mild FEVER Verified 12/18/22 23:26 atorvastatin AdvReac Mild MUSCLE Verified 12/18/22 23:26 ACHES Dust Allergy Intermediate SHORTNESS Uncoded 12/18/22 23:26 OF BREATH Home Medications Medication Instructions Recorded Confirmed Type buspirone 5 mg tablet 5 mg PO AMHS 05/03/22 12/18/22 History cyanocobalamin (vitamin B-12) 500 500 mcg PO HS 05/03/22 12/18/22 History mcg lozenges escitalopram oxalate 20 mg tablet 20 mg PO QAM 05/03/22 12/18/22 History ferrous sulfate 325 mg (65 mg 325 mg PO AMPM 05/03/22 12/18/22 History iron) tablet (iron) levocetirizine 5 mg tablet 5 mg PO HS 05/03/22 12/18/22 History pediatric multivitamin 1 tab PO BID 05/03/22 12/18/22 History no.203-ferrous sulfate 18 mg chewable tablet (Flintstones with Iron) polyethylene glycol 3350 17 17 g PO DAILY PRN Constipation 05/03/22 12/18/22 History gram/dose oral powder (Miralax) fesoterodine 8 mg tablet,extended 8 mg PO DAILY #90 tabs 06/06/22 12/18/22 Rx release 24 hr (Toviaz) calcium cit 250 mg-ergocalciferol 1 tab PO BID 07/31/22 12/18/22 History (vit D2) 2.5 mcg (100 unit) tablet metoprolol succinate 50 mg 50 mg PO QAM 12/18/22 12/18/22 History tablet,extended release 24 hr Patient History Medical History Afib DM2 (diabetes mellitus, type 2) "Diet controlled " HTN (hypertension) Hypercholesterolemia Polycystic liver disease SBO (small bowel obstruction) Urinary symptom or sign Surgical History H/O esophagogastroduodenoscopy H/O gastric bypass H/O tubal ligation History of resection of liver Previous section S/P colonoscopy S/P hernia repair Family History Father Myocardial infarction Grandfather Prostate cancer Denies family history of Colon cancer Ovarian cancer Breast cancer Social History Smoking Status: Never smoker Hx Alcohol Use: No Hx Substance Use: No Preferred Language: Egyptian Communication Ability: Effective Speech Language Assistant Required: No Beliefs That Will Affect Care: None marital status: Current Living Situation: Spouse current occupational status: unemployed Other Information That Helps Us Care for You: No Feels Safe at Home: Yes Safety Concerns: Feels Safe At This Time Diet: other Diet Comment: extra protein for gastric bypass Dental Care, Regularly: Yes Seatbelt Use: always Do you think of yourself as: straight/heterosexual Review of Systems Review of Systems: All systems reviewed & are unremarkable except as noted in HPI & below Physical Exam Constitutional: WD/WN, vitals as above cooperative and comfortable; no acute distress and not ill appearing Respiratory: normal respiratory effort, lungs clear to auscultation Cardiovascular: RRR, no murmur, no edema Gastrointestinal (Abdomen): Inspection/Auscultation: abdomen normal to inspection, normal bowel sounds and + abdominal surgical scar (midline laparotomy scar); abdomen not distended Percussion/Palpation: abdomen soft and + hernia (completely reducible ventral/incision hernia x 2); abdomen nontender, no guarding and abdomen not rigid Skin: no rashes, warm and dry Psychiatric: A+Ox3, euthymic affect Results & Data Vital Signs (Past 12 Hours) Vital Signs Pulse Resp BP Pulse Ox O2 Del Method 12/19/22 09:00 61 16 113/73 94 Room Air 12/19/22 06:00 77 16 98 Room Air 12/19/22 02:03 66 16 104/73 96 Room Air 12/19/22 00:11 64 16 104/73 93 Room Air 12/18/22 22:34 64 18 126/84 94 Room Air Laboratory Results 12/19/22 12/19/22 12/19/22 Range/Units 12:36 09:19 05:27 WBC (4.8-10.8) K/ul RBC (4.20-5.40) M/uL Hgb (12.0-16.0) g/dl Hct (37.0-47.0) % MCV (80.0-100.0) fL MCH (25.0-34.0) pg MCHC (32.0-36.0) g/dL RDW Std Deviation (36.4-46.3) fL RDW Coeff of Stef (11.5-14.5) % Plt Count (130-400) K/uL MPV (9.4-12.4) fL Immature Gran % (Auto) % Neut % (Auto) % Lymph % (Auto) % [place] % (Auto) % Eos % (Auto) % Baso % (Auto) % Neut # (Auto) (1.40-6.50) K/uL Lymph # (Auto) (1.20-3.40) K/uL [place] # (Auto) (0.11-0.59) K/uL Eos # (Auto) (0.00-0.50) K/uL Baso # (Auto) (0.00-0.20) K/uL Immature Gran # (Auto) (0.01-0.20) K/uL Sodium (136-145) mmol/L Potassium (3.5-5.1) mmol/L Chloride (98-107) mmol/L Carbon Dioxide (21-32) mmol/L Anion Gap (3-11) BUN (6-23) mg/dl Creatinine (0.6-1.2) mg/dl Est Cr Clr Drug Dosing ml/min Est GFR ( Amer) ml/min Est GFR (Non-Af Amer) ml/min BUN/Creatinine Ratio (10-20) Glucose (70-99(Fasting)) mg/dl POC Glucose 129 H 86 92 (70-99) mg/dl Lactate (0.4-2.0) mmol/L Calcium (8.6-10.3) mg/dl Magnesium (1.7-2.4) mg/dl Total Bilirubin (0.2-1.0) mg/dl AST (13-39) U/L ALT (7-52) U/L Alkaline Phosphatase (34-104) U/L Total Protein (6.0-8.3) gm/dl Albumin (3.4-5.0) gm/dl Globulin (2.5-4.0) gm/dl Albumin/Globulin Ratio (0.9-2) Lipase (11-82) U/L Urine Color Urine Appearance (Clear) Urine pH (4.5-7.5) Ur Specific [place] (1.000-1.030) Urine Protein (Negative) Urine Glucose (UA) (Negative) Urine Ketones (Negative) Urine Blood (Negative) Urine Nitrite (Negative) Urine Bilirubin (Negative) Urine Urobilinogen (Negative) Ur Leukocyte Esterase (Negative) 12/19/22 12/19/22 12/19/22 Range/Units 04:38 03:59 03:51 WBC 4.67 L (4.8-10.8) K/ul RBC 3.84 L (4.20-5.40) M/uL Hgb 12.0 (12.0-16.0) g/dl Hct 35.1 L (37.0-47.0) % MCV 91.4 (80.0-100.0) fL MCH 31.3 (25.0-34.0) pg MCHC 34.2 (32.0-36.0) g/dL RDW Std Deviation 45.0 (36.4-46.3) fL RDW Coeff of Stef 13.3 (11.5-14.5) % Plt Count 187 (130-400) K/uL MPV 10.8 (9.4-12.4) fL Immature Gran % (Auto) 0.2 % Neut % (Auto) 41.3 % Lymph % (Auto) 40.9 % [place] % (Auto) 10.1 % Eos % (Auto) 7.1 % Baso % (Auto) 0.4 % Neut # (Auto) 1.93 (1.40-6.50) K/uL Lymph # (Auto) 1.91 (1.20-3.40) K/uL [place] # (Auto) 0.47 (0.11-0.59) K/uL Eos # (Auto) 0.33 (0.00-0.50) K/uL Baso # (Auto) 0.02 (0.00-0.20) K/uL Immature Gran # (Auto) 0.01 (0.01-0.20) K/uL Sodium (136-145) mmol/L Potassium (3.5-5.1) mmol/L Chloride (98-107) mmol/L Carbon Dioxide (21-32) mmol/L Anion Gap (3-11) BUN (6-23) mg/dl Creatinine (0.6-1.2) mg/dl Est Cr Clr Drug Dosing ml/min Est GFR ( Amer) ml/min Est GFR (Non-Af Amer) ml/min BUN/Creatinine Ratio (10-20) Glucose (70-99(Fasting)) mg/dl POC Glucose (70-99) mg/dl Lactate 0.5 (0.4-2.0) mmol/L Calcium (8.6-10.3) mg/dl Magnesium 2.1 (1.7-2.4) mg/dl Total Bilirubin (0.2-1.0) mg/dl AST (13-39) U/L ALT (7-52) U/L Alkaline Phosphatase (34-104) U/L Total Protein (6.0-8.3) gm/dl Albumin (3.4-5.0) gm/dl Globulin (2.5-4.0) gm/dl Albumin/Globulin Ratio (0.9-2) Lipase (11-82) U/L Urine Color Urine Appearance (Clear) Urine pH (4.5-7.5) Ur Specific [place] (1.000-1.030) Urine Protein (Negative) Urine Glucose (UA) (Negative) Urine Ketones (Negative) Urine Blood (Negative) Urine Nitrite (Negative) Urine Bilirubin (Negative) Urine Urobilinogen (Negative) Ur Leukocyte Esterase (Negative) 12/18/22 12/18/22 Range/Units 21:44 21:40 WBC 4.92 (4.8-10.8) K/ul RBC 3.98 L (4.20-5.40) M/uL Hgb 12.3 (12.0-16.0) g/dl Hct 36.2 L (37.0-47.0) % MCV 91.0 (80.0-100.0) fL MCH 30.9 (25.0-34.0) pg MCHC 34.0 (32.0-36.0) g/dL RDW Std Deviation 43.8 (36.4-46.3) fL RDW Coeff of Stef 13.1 (11.5-14.5) % Plt Count 202 (130-400) K/uL MPV 11.0 (9.4-12.4) fL Immature Gran % (Auto) 0.2 % Neut % (Auto) 42.0 % Lymph % (Auto) 40.2 % [place] % (Auto) 9.3 % Eos % (Auto) 7.7 % Baso % (Auto) 0.6 % Neut # (Auto) 2.06 (1.40-6.50) K/uL Lymph # (Auto) 1.98 (1.20-3.40) K/uL [place] # (Auto) 0.46 (0.11-0.59) K/uL Eos # (Auto) 0.38 (0.00-0.50) K/uL Baso # (Auto) 0.03 (0.00-0.20) K/uL Immature Gran # (Auto) 0.01 (0.01-0.20) K/uL Sodium 132 L (136-145) mmol/L Potassium 4.4 (3.5-5.1) mmol/L Chloride 96 L (98-107) mmol/L Carbon Dioxide 30 (21-32) mmol/L Anion Gap 6 (3-11) BUN 13 (6-23) mg/dl Creatinine 0.73 (0.6-1.2) mg/dl Est Cr Clr Drug Dosing 65.6 ml/min Est GFR ( Amer) 104.5 ml/min Est GFR (Non-Af Amer) 90.1 ml/min BUN/Creatinine Ratio 17.8 (10-20) Glucose 119 H (70-99(Fasting)) mg/dl POC Glucose (70-99) mg/dl Lactate (0.4-2.0) mmol/L Calcium 9.6 (8.6-10.3) mg/dl Magnesium (1.7-2.4) mg/dl Total Bilirubin 0.6 (0.2-1.0) mg/dl AST 37 (13-39) U/L ALT 42 (7-52) U/L Alkaline Phosphatase 107 H (34-104) U/L Total Protein 7.1 (6.0-8.3) gm/dl Albumin 4.4 (3.4-5.0) gm/dl Globulin 2.7 (2.5-4.0) gm/dl Albumin/Globulin Ratio 1.6 (0.9-2) Lipase 22 (11-82) U/L Urine Color Yellow Urine Appearance Clear (Clear) Urine pH 7.5 (4.5-7.5) Ur Specific [place] 1.006 (1.000-1.030) Urine Protein Negative (Negative) Urine Glucose (UA) Negative (Negative) Urine Ketones Negative (Negative) Urine Blood Negative (Negative) Urine Nitrite Negative (Negative) Urine Bilirubin Negative (Negative) Urine Urobilinogen Negative (Negative) Ur Leukocyte Esterase Negative (Negative) Diagnostic Findings Exam(s): CT ABDOMEN + PELVIS With Contrast IV Amt: 92 ML OPTIRAY 320 EXAM: CT Abdomen and Pelvis With Intravenous Contrast CLINICAL HISTORY: Reason for exam: abd pain, hx sbo. TECHNIQUE: Axial computed tomography images of the abdomen and pelvis with intravenous contrast. CTDI is 14.14 mGy and DLP is 690.62 mGy-cm. Automated exposure control was utilized for the study. A dose lowering technique was utilized adhering to the principles of ALARA. CONTRAST: Patient received 92 ML OPTIRAY 320 of IV contrast COMPARISON: No relevant prior studies available. FINDINGS: Lung bases: Unremarkable. No mass. No consolidation. ABDOMEN: Liver: Extensive hepatic cystic lesions, correlate for polycystic liver disease. Gallbladder and bile ducts: Unremarkable. No calcified stones. No ductal dilation. Pancreas: Unremarkable. No mass. No ductal dilation. Spleen: Unremarkable. No splenomegaly. Adrenals: Unremarkable. No mass. Kidneys and ureters: Small bilateral renal cysts. No hydronephrosis or delayed nephrogram. Stomach and bowel: Ventral abdominal wall hernia with incarcerated small bowel contributing to low-grade small bowel obstruction. Moderate fecal retention throughout the colon, correlate for constipation. Mariah- en-Y gastric bypass. No obstruction at the jejunojejunostomy, which is patulous measuring up to 7.4 cm. No mucosal thickening. PELVIS: Appendix: No findings to suggest acute appendicitis. Bladder: Unremarkable. No mass. Reproductive: Unremarkable as visualized. ABDOMEN and PELVIS: Intraperitoneal space: Unremarkable. No free air. No significant fluid collection. Bones/joints: Degenerative changes of the spine. No acute fracture. No dislocation. Soft tissues: See above. Vasculature: Atherosclerotic changes of the aorta. No abdominal aortic aneurysm. Lymph nodes: Unremarkable. No enlarged lymph nodes. IMPRESSION: 1. Extensive hepatic cystic lesions, correlate for polycystic liver disease. 2. Ventral abdominal wall hernia with incarcerated small bowel contributing to low-grade small bowel obstruction. This may be manually reducible. Surgical evaluation recommended. 3. Moderate fecal retention throughout the colon, correlate for constipation. 4. Mariah-en-Y gastric bypass. No obstruction at the jejunojejunostomy, which is patulous measuring up to 7.4 cm.
[2022-12-19] MEDS: ESCITALOPRAM OXALATE 20 MG TAB PO SCH (10:39)
[2022-12-19] MEDS: MULTIVITAMIN CHEWABLE TAB PO SCH ×2 (10:39→20:59)
[2022-12-19] MEDS: METOPROLOL SUCC 25MG EXT REL TAB PO SCH (10:39)
[2022-12-19] MEDS: OXYBUTYNIN CHLORIDE XL 5 MG TABCR PO SCH (10:39)
[2022-12-19] MEDS: busPIRone 5 MG TAB PO SCH ×2 (10:39→20:58)
[2022-12-19] MEDS: ENOXAPARIN INJ 40 MG/0.4 ML SYR SQ SCH (10:40)
--- NOTE | 2022-12-19 16:55 | Communication Note ---
Date of Service: December 19, 2022 Patient seen and examined at bedside. No abdominal pain or discomfort. Advance diet as tolerated. Discussed regarding low fiber diet. Possible discharge in a.m. if patient continues to tolerate advancement of diet.
[2022-12-19 18:21] LABS: BUN Creatinine Ratio 14.5 (10-20); Calcium 8.8 mg/dl (8.6-10.3); Creatinine Clr Calc Pharmacy 69.4 ml/min; Est GFR (African American) 110.4 ml/min; Est GFR (Non-African American) 95.3 ml/min
[2022-12-19] MEDS ORDERED: CETIRIZINE HCL 10 MG TABLET PO SCH (21:00)
[2022-12-19] MEDS ORDERED: CYANOCOBALAMIN (B-12) 500 MCG TABLET PO SCH (21:00)
[2022-12-20 07:07] LABS: Basophils # (auto) 0.02 K/uL (0.00-0.20); Basophils % (auto) 0.5 %; Eosinophils # (auto) 0.24 K/uL (0.00-0.50); Hematocrit (blood only) 36.1 % (37.0-47.0); Immature Granulocytes # (auto) 0.02 K/uL (0.01-0.20); Immature Granulocytes % (auto) 0.5 %; Lymphocytes # (auto) 1.61 K/uL (1.20-3.40); Mean Corpuscular Hemoglobin 31.7 pg (25.0-34.0); Mean Corpuscular Hgb Conc 33.2 g/dL (32.0-36.0); Mean Corpuscular Volume 95.3 fL (80.0-100.0); Monocytes # (auto) 0.42 K/uL (0.11-0.59); Monocytes % (auto) 10.4 %; Neutrophils # (auto) 1.71 K/uL (1.40-6.50); Neutrophils % (auto) 42.6 %; Platelet Count 177 K/uL (130-400); RDW Coefficient of Variation 13.6 % (11.5-14.5); RDW Standard Deviation 47.7 fL (36.4-46.3); Red Blood Count 3.79 M/uL (4.20-5.40); White Blood Count 4.02 K/ul (4.8-10.8)
[2022-12-20 07:13] LABS: BUN Creatinine Ratio 11.1 (10-20); Creatinine Clr Calc Pharmacy 66.5 ml/min; Est GFR (African American) 106.2 ml/min; Est GFR (Non-African American) 91.7 ml/min; Potassium 4.1 mmol/L (3.5-5.1)
[2022-12-20] MEDS: INSULIN ASPART PER UNIT CHARGE SC SCH ×2 (09:58→13:24)
[2022-12-20] MEDS: busPIRone 5 MG TAB PO SCH (09:59)
[2022-12-20] MEDS: ESCITALOPRAM OXALATE 20 MG TAB PO SCH (09:59)
[2022-12-20] MEDS: ENOXAPARIN INJ 40 MG/0.4 ML SYR SQ SCH (09:59)
[2022-12-20] MEDS: OXYBUTYNIN CHLORIDE XL 5 MG TABCR PO SCH (09:59)
[2022-12-20] MEDS: METOPROLOL SUCC 25MG EXT REL TAB PO SCH (09:59)
[2022-12-20] MEDS: MULTIVITAMIN CHEWABLE TAB PO SCH (09:59)
--- NOTE | 2022-12-20 15:30 | Discharge Summary ---
Date of Service December 20, 2022 Admission HPI Per Admitting Provider History obtained from patient and records. Medical history significant for PAF, hypertension, hyperlipidemia/statin intolerance, DM 2 diet-controlled, GERD, ELOISE on CPAP, history of gastric bypass, polycystic liver disease, migraine, mood disorder. Last confinement December 2015 for SBO resolved with conservative management. Patient evaluated outpatient by [facility] last August 2022 for incisional hernias. Open repair of incisional hernias contemplated, tentative schedule next month. Patient noted sudden onset achy abdominal pain, belching and bloating systems after dinner last night. Some nausea, no emesis, no fever, no chills. No chest pain, no SOB. No BM yesterday which is unusual for her. Patient consulted ER for evaluation. Abdominal discomfort on trial of liquid diet at the ER. 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 Admission Exam Per Admitting Provider GENERAL: Comfortable, pleasant, no respiratory distress SKIN: Normal color, warm HEENT: Bespectacled [place] palpebral conjunctivae, no ptosis, dry buccal mucosa NECK : Supple, no tenderness CHEST : CTA, no tenderness HEART : RRR, no obvious murmurs ABDOMEN: Some distention, central abdominal tenderness EXTREMITIES : No LE swelling/tenderness, no other conspicuous deformities noted NEUROLOGIC : Coherent, no facial asymmetry, no other gross focality Principal Diagnosis Small bowel obstruction Ventral hernia Discharge Exam Constitutional: WD/WN, vitals as above, NAD, sitting up in bed, pleasant, conversing easily Respiratory: normal respiratory effort, lungs clear to auscultation, no wheeze, rales, rhonchi. Normal insp/exp effort, no accessory muscle use Cardiovascular: RRR, no murmur, no edema Vessels: no JVD or carotid bruit Chest: normal inspection of chest Abdomen: Soft, nontender. Musculoskeletal: no cyanosis or clubbing, extremities motor strength 5/5 Skin: no rashes, warm and dry normal turgor Neurologic: PERRL, EOMI, accommodation nl, no face palsy, no dysarthria CN's II- XI intact bilaterally and moves all extremities Psychiatric: A+Ox3, euthymic affect Discharge Data Allergies Allergy/AdvReac Type Severity Reaction Status Date / Time pollen extracts Allergy Intermediate SHORTNESS Verified 12/18/22 23:26 OF BREATH pravastatin Allergy Mild FEVER Verified 12/18/22 23:26 atorvastatin AdvReac Mild MUSCLE Verified 12/18/22 23:26 ACHES Dust Allergy Intermediate SHORTNESS Uncoded 12/18/22 23:26 OF BREATH Consultations 12/19/22 03:10 ED Decision to Admit Stat 12/19/22 08:43 Consult General Surgery Routine Ordered Studies 12/18/22 21:09 CT abd pelvis IV con only Stat Hospital Course (1) SBO (small bowel obstruction): Patient is a 61-year-old female with history of multiple abdominal surgeries including Patti-en-Y Y bypass, SBO with bowel resection presented with abdominal pain and nausea for [address] abdomen and pelvis personally reviewed; showed hernia containing small bowel with SBO. Patient was admitted to telemetry floor. Conservative care with IV fluids, analgesics was done. Surgery was consulted for comanagement. Diet was advanced slowly; patient was able to tolerate low fiber diet at discharge. Patient discharged home. Patient has a follow-up with surgery for elective ventral hernia repair in January. Please note the above document was generated using voice recognition software. It may contain grammatical, syntax or spelling errors. Any formal questions or concerns about the content, text or information contained within the body of this dictation should be directly addressed to the provider for clarification Total Time Total Time Spent Total Time Spent (In Minutes): 45 Total Time Includes: Examination of the Patient, Discharge Planning, Medication Reconciliation, Communication With Other Providers and Other Discharge Plan Discharge Items Patient Disposition: Home - Self-Care Reason For Visit: SBO, POSS IV PHILLIP NEED Discharge Diagnosis: Small bowel obstruction Ventral abdominal wall hernia Condition on Discharge: Good Activity: Resume your previous activity Non-emergency contact: Primary Care Provider Call non-emergency contact if: you have any medication questions and your symptoms worsen Follow-up/Referrals: Marilynn Taylor DO [Primary Care Provider] - (Date & Time 12/25/2022 3:00 PM Provider Marilynn Taylor DO Department Family Practice [facility] [place] ) Diet: Low Fiber Addtl Attending Provider Instructions: You were admitted to the hospital due to small bowel obstruction secondary to ventral abdominal hernia. Please adhere to low fiber diet. Follow-up with PCP. An appointment will be made for you for sometime next week. Follow-up with surgery. Pending Studies at Discharge: No Stand-Alone Forms: My [facility], Smoking Cessation Medications and DC Order Prescriptions: Continued fesoterodine [Toviaz] 8 mg tablet extended release 24 hr 8 mg PO DAILY Qty: 90 3RF calcium citrate-vitamin D2 250 mg-2.5 mcg (100 unit) Tablet 1 tab PO BID escitalopram oxalate 20 mg tablet 20 mg PO QAM buspirone 5 mg tablet 5 mg PO AMHS levocetirizine 5 mg Tablet 5 mg PO HS Flintstones with Iron 18 mg iron Tablet,Chewable 1 tab PO BID ferrous sulfate [iron] 325 mg (65 mg iron) Tablet 325 mg PO AMPM Rx Instructions: TAKE THIS MED EVERY OTHER DAY polyethylene glycol 3350 [Miralax] 17 gram/dose Powder 17 g PO DAILY PRN (Reason: Constipation) cyanocobalamin (vitamin B-12) 500 mcg Lozenge 500 mcg PO HS metoprolol succinate 50 mg tablet extended release 24 hr 50 mg PO QAM Discharge Orders: Discharge Order (Routine); Ordered 12/20/22 Ordered By: Chad Hidalgo Admission Data Admit Date/Time: 12/19/22 03:48 Attending Provider: Chad Hidalgo Admit Provider: Arnold Hicks Primary Care Provider: Marilynn Taylor Other Providers: Mk Rodas; Arnold Hicks Other Interventions: Discharge Summary Assessment (RN) Last Done: 12/20/22 11:57
--- OUTSIDE RECORDS SUMMARY | 2022-12-23 08:15 | External Medical Summary | Summary of Care ---
Author Name Unknown Organization [facility] Address [address] [place] [address] Phone [phone] Care Team Providers Care Landscape Specialist Name Role Phone Marilynn Taylor DO Primary Care Provider [phone] Reason for Visit * Reason Comments Re-Check Discuss type 2 DM-- hypoglycemia Encounter Details Date Type Department Care Team (Late st Contact Info) Description 12/18/2022 9:40 AM EST Office Visit Family Practice [facility] [address] [place] [address] Arleen Curran CRNP [address] [place] [address] Type 2 diabetes mellitus with hemoglobin A1c goal of less than 7.0% (FORMERLY [facility])*; Hypoglycemia Allergies Active Allergy Reactions Criticality Noted Date Comments Dust 09/28/2020 Atorvastatin Calcium Fever,Muscle pain 11/16/19 10 Fever and Mylagia Pollen 09/28/2020 Pravastatin Fever 11/28/2011 documented as of this encounter (statuses as of 12/18/2022) Medications Medication Sig Dispensed Refills Start Date End Date Status ONETOUCH ULTRASOFT LANCETS MISCIndications:DM type 2, not at goal (HCC) Use daily to check blood sugar as directed. Dx; 250.00 1 box 11 01/17/2009 Active ONETOUCH ULTRA SYSTEM W/DEVICE KITIndications:DM type 2, not at goal ([facility]) Use daily to check blood sugars as directed. Dx: 250.00 1 0 02/15/2009 Active FLINTSTONES PLUS IRON PO CHEW 1 tablet twice daily 0 Active CALCIUM CITRATE-VITAMIN D 500-400 MG-UNIT PO CHEW 1 tablet twcie daily 0 Active SENOKOT 8.6 MG PO TABSIndications:Const ipation one tablet as needed for constipation 30 Tab 3 07/27/2013 Active POLYETHYLENE GLYCOL 3350 PO PACKIndications:Const ipation 1 PACKET DAILY 30 Packet 11 12/02/2013 Active Fesoterodine Fumarate ER 8 MG Oral Tablet Extended Release 24 Hour Take 1 Tablet by mouth in the morning. 0 Active Cyanocobalamin (B-12) 500 MCG SUBLIndications:at bedtime Place under the tongue daily. Indications: at bedtime 0 Active Vitamin D, Ergocalciferol, 1.25 MG (36824 UT) CapsuleIndications:Ge neralized osteoarthritis TAKE ONE CAPSULE BY MOUTH EVERY WEEK 13 Cap 1 09/07/2019 Active Levocetirizine Dihydrochloride 5 MG Oral Tablet Take by mouth 1 Tablet before bedtime. 90 Tablet 1 04/04/2021 Active Iron 325 (65 Fe) MG Oral Tablet Take 1 Tablet by mouth every other day. 0 Active OneTouch Ultra Blue In Vitro Strip (Glucose Blood)Indications:Typ e 2 diabetes mellitus with hemoglobin A1c goal of less than 7.0% ([facility]) Test blood sugar up to four times daily as directed 100 Strip 4 06/26/2021 Active Escitalopram Oxalate 20 MG Oral Tablet (Lexapro)Indications: Adjustment disorder with depressed mood TAKE 1 TABLET BY MOUTH EVERY DAY 90 Tablet 3 04/30/2022 Active busPIRone HCl 5 MG Oral Tablet (Buspar)Indications:A nxiety Take 1 Tablet by mouth in the morning and 1 Tablet in the evening. 180 Tablet 3 05/17/2022 Active Abrysvo 120 MCG/0.5ML Intramuscular Solution Reconstituted (RSV Pre-Fusion F A&B Vac Rcmb)Indications:Need for RSV immunization Inject 0.5 mL into a large muscle once for 1 dose. 1 Each 0 12/06/2022 3 Active Metoprolol Succinate ER 50 MG Oral Tablet Extended Release 24 Hour (toPROL XL)Indications:Heart palpitations Take 1 Tablet by mouth in the morning. 90 Tablet 3 12/10/2022 Active documented as of this encounter (statuses as of 12/18/2022) Active Problems Problem Noted Date Diagnosed Date Well adult exam 09/05/2022 Heart palpitations 09/05/2022 Chronic left-sided low back pain without sciatic a 09/05/2022 Incisional hernia, without obstruction or gangre ne 08/02/2022 Intestinal postoperative nonabsorption 7 Incidental lung nodule, greater than or equal to 8mm 04/28/2016 Polycystic liver disease 08/24/2015 Generalized osteoarthritis 06/15/2015 HTN, goal below 130/80 04/18/2015 Overview: Per HTN Protocol #27. S/P bariatric surgery 02/24/2013 [facility] OTHER*[id number] 12/17/2012 ELOISE on CPAP 10/16/2012 Type 2 diabetes mellitus wit h hemoglobin A1c goal of less than 7.0% 01/12/2009 Overview: Currently diet controlled, at goal ICD-10 update of inactive term Migraine variant 11/21/2006 Dyslipidemia documented as of this encounter (statuses as of 12/18/2022) Resolved Problems Problem Noted Date Diagnosed Date Resolved Date Pleural effusion 05/03/2016 02/27/2018 Small bowel obstruction 04/28/201602/11 Hepatomegaly 08/24/2015 12/22/2019 Liver cyst 08/12/2015 12/22/2019 Bursitis, trochanteric 08/26/201302/27 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 Acute bronchitis, complicated 06/27/2011 05/28/2012 Genetic Sleep Disorder [facility] Other*[id number] 08/03/2010 09/08/2015 Severe obesity with body mas s index (BMI) of 35.0 to 39.9 with serious comorbidity 05/09/2009 Overview: Per Obesity Taxonomy ICD-10 update of inactive diagnosis Sprain of ankle 04/26/2009 12/15/2009 HTN, GOAL BELOW 130/80 03/09/200910/03 Overview: Per HTN Taxonomy. Other chronic allergic conjunctivitis 01/31/2009 12/22/2019 Allergic rhinitis 01/31/2009 12/22/2019 Acute sinusitis 01/27/2009 05/09/2009 Paroxysmal atrial fibrillation 01/26/2008 02/26/2022 Other specified disorders of liver 01/26/2008 12/02/2013 Urinary incontinence 10/28/2007 020 Overview: ICD-10 update of inactive term Obesity, BMI not known 10/22/200605/09 Overview: Per Obesity Taxonomy Dyslipidemia, goal LDL below 160 09/30/2006 08/16/2008 ADVANCE DIRECTIVE INFORMATION 06/24/2006 12/22/2019 Overview: Yes, Patient instructed to provide copy of advance directive for provider to review and to be scanned into Electronic Medical Record Adjustment disorder with depressed mood 06/24/2006 03/13/2022 HTN, goal below 140/90 06/24/200603/09 Overview: Per HTN Taxonomy. Statin intolerance 3 documented as of this encounter (statuses as of 12/18/2022) Immunizations Name Administration Dates Next Due COVID-19 mRNA, LNP-s, No Pre serve, 2-Dose Series (Moderna) 04/16/2020,03/12/2020 COVID-19, MRNA-LNP, 23-24, P F, 30 MCG/0.3 mL, 12 YRS AND ABOVE, IM (PFIZER-Comirnat) 11/30/2022 COVID-19, mRNA, LNP-s, PF, B ooster, 100mcg/0.5mg (Moderna) 06/29/2021,12/12/2020 Covid-19, Mrna, Lnp-s, Pf, B ivalent, 30 Mcg, IM, 12 yrs and above (Pfizer) 11/06/2021 HEP A - Hepatitis A (Adult > 18 yrs) 06/14/2014, 12/08/2013 HepA Inact/HepB Recomb>=18yrs old 06/14/2014, Hepatitis B, 20+ yrs 06/14/2014,01/08/2014,12/08 Pneumococcal Conjugate Vacci ne, 20-valent ([id number]) 10/17/2021 Pneumococcal Polysaccharide PPV23 (Pneumovax) 05/04/2009 RSV Vac., Bivalent, Perfusio n F, Pf,0.5 Ml (Abrysvo) 12/10/2022 SEASONAL INFLUENZA, PF, 6 M & Above, IM , (FLULAVAL or FLUZONE) 11/30/2022,11/28/2021,11/25/2020,10/28,10/14/2018 Seasonal Influenza Virus Vac cine, Unspecified Formulation 10/14/2018,11/27/2017,11/06/2017,11/20,11/09/2015,12/15/2014,12/02/2013 ,11/28/2012,11/28/2011,12/15/2009,02/12 Seasonal Influenza, Quadriva lent, No Preserve, IM 11/27/2017,11/09/2015,12/15/2014 Seasonal Influenza, Split, I IV3, With Preserve, Inj 11/17/2015,12/02/2013,11/28/2012,11/27,12/15/2009,03/10/2009 TD - Tetanus/Diptheria (ADULT) 02/12/2004 TD, Preservative Free 02/12/2004 TDAP (age 10 and older)(Boostrix) 09/29/2019 TDAP (age 11 and older)(Adacel) 12/15/2009 Varicella Zoster Vaccine (Adult) 09/17/2018 Zoster Vaccine Recombinant (Shingrix) 11/20/2018 ,09/17/2018 documented as of this encounter Social History Tobacco Use Types Packs/Day Years Used Date Smoking Tobacco: Never Smokeless Tobacco: Never Comments:no passive smoke ex posures Alcohol Use Standard Drinks/Week Comments No 0 (1 standard drink = 0.6 oz pur e alcohol) PHQ-2 Answer Date Recorded PHQ Adult Total Score 18 11/19/2022 Hunger Vital Sign Answer Date Recorded Within the past 12 months, y ou worried that your food would run out before you got the money to buy more. Never true 12/17/19 23 Within the past 12 months, t he food you bought just didn't last and you didn't have money to get more. Never true 12/16/2022 Sex and Gender Information Value Date Recorded Sex Assigned at Female 09/11/2021 5:13 PM EDT Gender Identity Female 09/11/2021 5:13 PM EDT Sexual Orientation Straight 09/11/2021 5: 13 PM EDT Job Start Date Occupation Industry Not on file Not on file Not on file documented as of this encounter Last Filed Vital Signs Vital Sign Reading Time Taken Comments Blood Pressure 112/68 12/18/2022 10:00 AM EST Pulse 67 12/18/2022 10:00 AM EST Temperature 36.6 C (97.8 F) 12/18/2022 10:[address] Respiratory Rate - - Oxygen Saturation 97% 12/18/2022 10:00 AM EST Inhaled Oxygen Concentration - - Weight - - Height - - Body Mass Index - - documented in this encounter Functional Status Functional Status Response Date of Assess ment Are you deaf or do you have serious difficulty h earing? No 04/30/2016 Are you blind or do you have serious difficulty seeing, even when wearing glasses? No 04/30/2016 Do you have serious difficul ty walking or climbing stairs? (5 years old or older) No 04/30/2016 Do you have difficulty dress ing or bathing? (5 years old or older) No 04/30/2016 Because of a physical, menta l, or emotional condition, do you have difficulty doing errands alone such as visiting a doctor s office or shopping? (15 years old or older) No 05/01/19 17 Cognitive Status Response Date of Assessm ent Because of a physical, menta l, or emotional condition, do you have serious difficulty concentrating, remembering, or making decisions? (5 years old or older No 04/30/2016 documented as of this encounter Progress Notes * Arleen Curran CRNP - 12/18/2022 9:51 AM EST Acute Family Medicine Visit CC: low blood sugar History of Present Illness: Crista Adair is a 61 year old female presenting today with complaints of low blood sugar. She reports that over the weekend her blood sugar dropped to 35 and this has never happened before. Got sweaty, shaky, tired. Immediately before she had candy bar. Recent A1C at 5.3. Sometimes it goes high. 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 Under a lot of stress. 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 Tobacco Use Smoking status: Never Smokeless tobacco: Never Tobacco comments: no passive smoke exposures Vaping Use Vaping Use: Never used Substance and Sexual Activity Alcohol use: No Drug use: No Sexual activity: Yes Partners: Male control/protection: Surgical Comment: btl Other Topics Concern Service Not Asked Blood Transfusions No Caffeine Concern Not Asked Occupational Exposure Not Asked Hobby Hazards Not Asked Sleep Concern Not Asked Stress Concern Not Asked Weight Concern Not Asked Special Diet Yes Comment: counts carbs Back Care Not Asked Exercise Not Asked Bike Helmet Not Asked Seat Belt Yes Self-Exams Not Asked Social History Narrative [employer] INFORMATION ENVIRONMENTAL HISTORY: Type of Home: Multi-level Type of Heating System: Oil and Forced air Air Conditioning: Yes Central Basement: Finished, Carpeted rooms, Dampness, Dehumidifier and No evidence mold, mildew Home have cockroaches: No Irritants in the home: None Patient's bedroom location: Floor: second Type of jolene: Carpeting Beds: Number: 1 Type of beds: Mattress and Box spring Pillows: Number: 2 Type of pillows: Foam Bedroom contains: Bookshelves/Books and Plants Pets: none Lives on a farm: No [place] for the school district; no occupation related worsening of symptoms. 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 Social Determinants of Health Financial Resource Strain: Not on file Food Insecurity: No Food Insecurity (12/16/2022) Hunger Vital Sign Worried About Running Out of Food in the Last Year: Never true Ran Out of Food in the Last Year: Never true Transportation Needs: Not on file Physical Activity: Not on file Stress: Not on file Social Connections: Not on file Intimate Partner Violence: Not on file Housing Stability: Not on file PMH: Past Medical History: Diagnosis Date Adjustment disorder with depressed mood 06/24/2006 Allergic rhinitis 01/31/2009 Atrial fibrillation (HCC) 01/26/2008 DM type 2, goal A1c below 7 Currently diet controlled, at goal Dyslipidemia Dyslipidemia, goal LDL below 100 HTN, goal below 130/80 03/09/2009 Osteoarthritis hands, elbows, ankles Paroxysmal atrial fibrillation (HCC) 01/26/2008 Sleep apnea 2009 on CPAP now, and oxygen 2L/min at night Statin intolerance Unspecified urinary incontinence 10/28/2007 VARIANTS OF MIGRAINE WITHOUT MENTION OF INTRACTABLE MIGRAINE 11/21/2006 Past Surgical History: Procedure Laterality Date ABD WALL HERNIA REPAIR, LAP, REDUCIBLE 02/06/2013 LAPAROSCOPIC VENTRAL / UMBILICAL HERNIA REPAIR, REDUCIBLE performed by Izzy Barker MD at [facility] DELIVERY x 2 COLONOSCOPY, DIAGNOSTIC (RECTUM) 09/01/2013 poor prep/done @ [facility] COLONOSCOPY, DIAGNOSTIC (RECTUM) 09/02/2013 hyperplastic polyp, repeat 10 yrs/[facility] COLONOSCOPY, DIAGNOSTIC (RECTUM) 02/09/2019 fair prep, repeat 5 yrs/COLONOSCOPY FLEXIBLE PROXIMAL DIAGNOSTIC performed by Elizabeth Jack MD at ENDOSCOPY [facility] CYSTOSCOPY 02/24/2008 EGD, FLEXIBLE, DIAGNOSTIC 02/06/2013 UPPER GI ENDOSCOPY DIAGNOSTIC performed by Izzy Barker MD at [facility] EGD, FLEXIBLE, DIAGNOSTIC 03/20/2013 ESOPHAGOGASTRODUODENOSCOPY (EGD), FLEXIBLE, TRANSORAL, DIAGNOSTIC performed by Izzy Barker MD at [facility] EGD, FLEXIBLE, TRANSENDOSCOPIC DILATION <30MM 03/20/2013 ESOPHAGOGASTRODUODENOSCOPY (EGD), FLEXIBLE, TRANSORAL, BALLOON DILATION LESS THAN 30MM performed byIzzy Barker MD at [facility] EXPLORATION OF ABDOMEN N/A 04/23/2016 EXPLORATORY LAPAROTOMY performed by Tom Palma MD at [facility] INCISION & DRAINAGE 03/30/13 Incision and drainage and packing of the area 03/30/13 Dr. Nazario at [facility] LAPAROSCOPE PROCEDURE, LIVER 02/06/2013 UNLISTED LAPAROSCOPIC PROCEDURE LIVER performed by Izzy Barker MD at [facility] LAPAROSCOPIC GASTRIC BYPASS/NOAM-EN-Y 02/06/2013 LAPAROSCOPIC GASTRIC RESTRICTIVE BYPASS NOAM EN Y performed by Izzy Barker MD at [facility] LIGATE/CUT OVIDUCT(S) MISCELLANEOUS ORDER ([facility] ONLY) blood transfusion 2UpRBC, 1u FFP PLACE TEMPORARY GASTROSTOMY TUBE N/A 04/23/2016 GASTROSTOMY OPEN performed by Tom Palma MD at [facility] REMOVAL OF SMALL INTESTINE W/FUSION N/A 04/23/2016 ENTERECTOMY SMALL BOWEL RESECTION performed by Tom Palma MD at [facility] No outpatient medications have been marked as taking for the 12/18/22 encounter (Appointment) with Arleen Curran CRNP. Review of patient's allergies indicates: Allergen Reactions Dust Lipitor [Atorvastatin Calcium] Fever and Muscle pain Fever and Mylagia Pollen Pravastatin Fever Most Recent Immunizations Administered Date(s) Administered COVID-19 mRNA, LNP-s, No Preserve, 2-Dose Series (Moderna) 04/16/2020 COVID-19, MRNA-LNP, 23-24, PF, 30 MCG/0.3 mL, 12 YRS AND ABOVE, IM (PFIZER- Comirnat) 11/30/2022 COVID-19, mRNA, LNP-s, PF, Booster, 100mcg/0.5mg (Moderna) 06/29/2021 Covid-19, Mrna, Lnp-s, Pf, Bivalent, 30 Mcg, IM, 12 yrs and above (Pfizer) 11/06/2021 HEP A - Hepatitis A (Adult > 18 yrs) 06/14/2014 HepA Inact/HepB Recomb>=18yrs old 06/14/2014 Hepatitis B, 20+ yrs 06/14/2014 Pneumococcal Conjugate Vaccine, 20-valent ([id number]) 10/17/2021 Pneumococcal Polysaccharide PPV23 (Pneumovax) 05/04/2009 RSV Vac., Bivalent, Perfusion F, Pf,0.5 Ml (Abrysvo) 12/10/2022 SEASONAL INFLUENZA, PF, 6 M & Above, IM , (FLULAVAL or FLUZONE) 11/30/2022 Seasonal Influenza Virus Vaccine, Unspecified Formulation 10/14/2018 Seasonal Influenza, Quadrivalent, No Preserve, IM 11/27/2017 Seasonal Influenza, Split, IIV3, With Preserve, Inj 11/17/2015 TD - Tetanus/Diptheria (ADULT) 02/12/2004 TD, Preservative Free 02/12/2004 TDAP (age 10 and older)(Boostrix) 09/29/2019 TDAP (age 11 and older)(Adacel) 12/15/2009 Varicella Zoster Vaccine (Adult) 09/17/2018 Vitamin B12 Injection 02/23/2016 Zoster Vaccine Recombinant (Shingrix) 11/20/2018 Review of Systems: Review of Systems Constitutional: Positive for diaphoresis and fatigue. Negative for fever. Respiratory: Negative for shortness of breath. Cardiovascular: Positive for palpitations. Negative for chest pain and leg swelling. Neurological: Positive for weakness. Negative for dizziness. Physical Exam: LMP 08/11/2010 (LMP Unknown) Comment: pt had tubal ligation Physical Exam HENT: Head: Normocephalic. Cardiovascular: Rate and Rhythm: Normal rate and regular rhythm. Pulmonary: Effort: Pulmonary effort is normal. Breath sounds: Normal breath sounds. Neurological: General: No focal deficit present. Mental Status: She is alert and oriented to person, place, and time. Psychiatric: Mood and Affect: Mood normal. Behavior: Behavior normal. Thought Content: Thought content normal. Judgment: Judgment normal. Assessment and Plan: 1. Type 2 diabetes mellitus with hemoglobin A1c goal of less than 7.0% ([facility]) RECENT A1C controlled She is on keto diet 2. Hypoglycemia Episode of blood sugar at 35 after eating a candy bar. Recommend avoiding high sugar foods Recommend frequent small meals Check blood sugar if feeling bad, I have advised the patient to call our office incase of any worsening or new symptoms. I spent a total of 20-29 minutes (exact time 25 mins) on the date of service in preparation, delivery, and documentation of the care provided to Crista Adair excluding any time spent in the performance of separately billed services. Denny, MSN, FASHION CONSULTANT SELLING [facility] documented in this encounter Nursing Notes * Marcia Andres LPN - 12/18/2022 9:58 AM EST The patient has been properly identified by confirmation of name and date of . Chief Complaint Patient presents with Re-Check Discuss type 2 DM-- hypoglycemia Pt states 3 nights ago pt glucose dropped to 35. Normal fasting glucose is 100 for pt. Pt not on any DM meds. Pt having urinary incontinence for the past 3 weeks. Always having frequent urination. Pt sees Dr Haynes for heart palps, fluctuating blood pressure, changed meds around. documented in this encounter Plan of Treatment Upcoming Encounters Date Type Department Care Team (Late st Contact Info) Description 01/07/2023 8:30 AM EST Imaging Cardiac Studies, [facility] [address] [address] 01/07/2023 9:15 AM EST Cardiac Studies Cardiac Studies, [facility] [address] [place] [address] 01/15/2023 7:15 AM EST Office Visit Non [facility], Operating Room, [facility] [address] [place] [address] Brodie Webster MD [address] [address] 01/28/2023 1:30 PM EST Office Visit General Surgery, [facility] [address] [id number] Brodie Webster MD [address] [address] 02/18/2023 9:30 AM EST Office Visit Cardiology, [facility] [address] [address] Damien Haynes PA-C [address] [place] [address] 05/01/2023 5:00 PM EDT Office Visit Family Practice [facility] [address] [place] [address] Marilynn Taylor DO [address] [place] [address] 08/30/2023 11:30 AM EDT Office Visit Gynecology/Obstetrics [facility] [address] [place] [address] Erma Escalante, [facility] [address] [place] [address] 11/14/2023 2:20 PM EDT Office Visit Nutrition & Weight Management, [facility] [address] [place] [address] Ethel Gutierrez PA-C [address] [place] [address] Scheduled Procedures Name Priority Associated Diagnoses Date/Ti me COLONOSCOPY FLEXIBLE PROXIMAL DIAGNOSTIC Recall History of colon polyps Health Maintenance Due Date Last Done Comments HIV Screening 1977 HPV/Co-Test 1992 Cervical Cancer Screening 09/15/2022 Pap Smear 09/15/2022 09/16/2019, 01/12, 06/20/2011, Additional history exists Diabetic Foot Exam 10/17/2022 10/17/2021, 0 09/28/2020, 02/27/2018, Additional history exists Depression, Most Recent Score >= 10 (will fire each visit until score < 10) 11/20/2022 11/19/2022 Diabetic Eye Exam 02/21/2023 02/21/2022, , 09/02/2019, Additional history exists HbA1c 05/15/2023 11/13/2022, 08/12, 04/27/2022, Additional history exists Albumin/Creatinine Ratio 09/06/2023 023, 03/17/2021, 09/28/2020, Additional history exists Mammogram 09/26/2023 09/25/2022, 09/12, 09/28/2020, Additional history exists GFR 11/14/2023 11/13/2022, 10/12, 08/13/2022, Additional history exists COLONOSCOPY-EVERY 5 YRS AGES 18-100 02/10/2024 02/09/2019, 02/09/2019, 09/02/2013, Additional history exists Lipid Panel 11/14/2027 11/13/2022, 08/12, 09/30/2020, Additional history exists DTaP,Tdap,and Td Vaccines (3 - Td or Tdap) 09/28/2029 09/29/2019, 12/15/2009, 02/12/2004, Additional history exists Hepatitis C Screening Completed 05/22/2011 Hepatitis B Completed 06/14/2014, 0 05/2014, 01/08/2014, Additional history exists Zoster Vaccines Completed 11/20/2018, 08/2018, 09/17/2018 Pneumococcal Vaccine: Pediatrics (0 to 5 Years) and At-Risk Patients (6 to 64 Years) Completed 10/17/2021, 05/04/2009 COVID-19 Vaccine Completed 11/30/2022, , 06/29/2021, Additional history exists Influenza Vaccine (FLU shot) Completed , 11/28/2021, 11/25/2020, Additional history exists GARDASIL-HPV IMMUNIZATION SERIES Aged Out No longer eligible based on patient's age to complete this topic MENINGOCOCCAL (MENACTRA/MENVEO) Aged Out No longer eligible based on patient's age to complete this topic documented as of this encounter Medical Devices Not on filedocumented as of this encounter Visit Diagnoses Diagnosis Type 2 diabetes mellitus with hemoglobin A1c goal of less than 7.0% (HCC)- Primary Hypoglycemia Hypoglycemia, unspecified documented in this encounter Additional Health Concerns Infection Onset Date Last Indicated Resolved Time Campylobacter 01/08/2022 01/10/2022 Norovirus 01/08/2022 01/10/2022 Rotavirus 01/08/2022 01/10/2022 documented as of this encounter Advance Directives Latest Code Status on File Code Status Date Activated Date Inactivated Comments Full Code 04/30/2016 10:54 PM 05/03/2016 4:39 PM This order reflects the patients wishes and were consensually agreed upon. Question Answer Comments Discussion of Advance Directives occurred with: Not Discussed Does the patient have a Living Will? No Does the patient have Health Care Power of Resource Director? No Code Status History Code Status Date Activated Date Inactivated Comments Full Code 04/23/2016 1:26 AM 04/28/2016 3:56 PM This order reflects the patients wishes and were consensually agreed upon. Question Answer Comments Discussion of Advance Directives occurred with: Not Discussed Does the patient have a Living Will? No Does the patient have Health Care Power of Resource Director? No Full Code 03/20/2013 8:36 AM 03/20/2013 1:41 PM This or chente reflects the patients wishes and were consensually agreed upon. Question Answer Comments Discussion of Advance Directives occurred with: Not Discussed Does the patient have a Living Will? No Does the patient have Health Care Power of Resource Director? No Full Code 03/20/2013 6:56 AM 03/20/2013 8:36 AM This or chente reflects the patients wishes and were consensually agreed upon. Question Answer Comments Discussion of Advance Directives occurred with: Not Discussed Does the patient have a Living Will? No Does the patient have Health Care Power of Resource Director? No Full Code 02/07/2013 12:12 AM 02/09/2013 6:30 PM Th is order reflects the patients wishes and were consensually agreed upon. Question Answer Comments Discussion of Advance Directives occurred with: Not Discussed Does the patient have a Living Will? No Does the patient have Health Care Power of Resource Director? No Care Teams Landscape Specialist Relationship Specialty Start Date End Date Marilynn Taylor DO [address] [id number] PCP - General Family Medicine 05/21/15 documented as of this encounter
== END 2022-12-20 13:25 | disposition home or self-care (01) | DRG 394 ==
LOC: ED 20:48 → EDINP 12-19 03:48 → 2N 12-19 20:11
DX: I48.0 Paroxysmal atrial fibrillation; Z79.899 Other long term (current) drug therapy; E11.9 Type 2 diabetes mellitus without complications; K43.6 Other and unspecified ventral hernia with obstruction, without gangrene; Z88.8 Allergy status to other drugs, medicaments and biological substances; Z98.84 Bariatric surgery status; I10 Essential (primary) hypertension; Q44.6 Cystic disease of liver; F39 Unspecified mood [affective] disorder; Z91.048 Other nonmedicinal substance allergy status; G47.33 Obstructive sleep apnea (adult) (pediatric)